=== PATIENT | female | born 1995 | race Caucasian/White ===

== ENCOUNTER → 2017-03-01 | Outpatient (CLI) | payer MEDICAID ==
[~2017-03-01] MED LIST: ANUSOL-HC2.5% TP; CIPRO 500MG TA500 MG PO; DULCOLAX STOOL100 MG PO; FLAGYL500 M1 PO; MINIPRESS2 MG PO; NAPROSYN 500MG500 MG PO; NOMEDS XX; OMEPRAZOLE40 MG PO; PHENERGAN 12.12.5 M1 PO; PHENERGAN 25MG.25 MG PR; PRAZOSIN HCL2 MG PO; PRENATAL PLUS1 TA1 PO; ZOFRAN 8MG TABLE8 MG PO; ZOLOFT25 MG PO
--- NOTE | 2017-03-01 17:08 | RADIOLOGY REPORT PS360 ---
US TRANSVAGINAL PREG HISTORY: OB US FOR DATES ORDERING PHYSICIAN: Shaun Tang MD PATIENT AGE: 21 years COMPARISON: 02/27/2017 FINDINGS: There is a live intrauterine gestation present with a crown-rump length of 1.71 cm correlating to a gestational age of 8 weeks 2 days. A yolk sac is present. heart tones are noted with an FHR 160 bpm. The gestational sac has an unremarkable appearance. The left ovary is 3.2 x 1.7 cm containing small follicles. The right ovary is 4 x 2.8 cm and contains a 1 cm cyst and other smaller follicles. Blood flow is present in the ovaries. No free fluid evident. IMPRESSION: Live intrauterine gestation with average ultrasound age of 8 weeks 2 days
== END ==
LOC: RAD 13:30
DX: O26.841 Uterine size-date discrepancy, first trimester (principal)

== ENCOUNTER 2017-04-01 09:57 | Day surgery (SDC) | payer MEDICAID ==
[~2017-04-01] VITALS: Ht 162.6 cm; Wt 72.6 kg
--- NOTE | 2017-04-01 10:16 | Emergency Room Report ---
History of Present Illness Time Seen by [email or web address] Presenting Problem in Triage Pt arrived:Walked Presenting Problem:VEGINAL BLEEDING AND STOMACH PAIN SINCE TUESDAY 21:00.HAS BEEN GETTING WORSE. DR. 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 N Clinical Suspician of Infection? N Mental Status: 1 - Regular (Normal Baseline) Sepsis Risk:Low Sepsis Risk Have you (or family members/close friends) recently traveled outside the [place]? N If Yes, where/when: Have you had exposure to infectious disease within the past month? N TB? Other? Specify: Scant VB, cramping for two days, passing mucous, is A0 with care including US by Dr. Tang, with EDC 10/10/17 by US. No fever. No vomiting. No urinary sx. Last visit to clinic was about two weeks ago and showed cardiac activity per d/w patient and her partner. ALLERGIES Coded Allergies: No Known Allergies (04/01/17) Home Medications Reported Medications MULTIVIT-MIN W/FE-FA ( Multivitamin Tablet) 1 TAB PO DAILY History Medical History General CAD? No Angina: No LA: No Hypertension? No Hyperlipidemia? No CHF? No DVT? No PE? No COPD? No Asthma? No Anemia? No GERD? No Gastric ulcers? No GI Bleed? No Hernia? No Thyroid Problems? No Hypothyroidism? No CVA? No Seizures? No Diabetes? No Renal Insuffiency? No End Stage Renal Disease? No UTI? No Stones? No BPH? No GB Disease: No Nephritic Syndrome? No Asplenia? No Hepatitis? No Sickle Cell Disease? No Arthritis? No Migraines? No Cataracts? No Glaucoma? No MRSA? No HIV? No TB? No Anxiety? No Depression? No Cancer? No More? 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 Physical Exam Vital Signs Vital Signs Date Time Temp Pulse Resp B/P Pulse O2 O2 Flow FiO2 Ox Delivery Rate 04/01 1347 98.6 88 16 125/72 97 04/01 1346 98.6 88 16 125/72 97 04/01 1306 98.6 88 16 125/72 97 04/01 1303 88 16 125/72 97 04/01 1258 16 04/01 1118 90 16 127/81 97 04/01 1011 113/62 04/01 1006 98.6 67 16 113 97 General Appearance normal appearance, WD/WN, no apparent distress Eye Exam - bilateral eye normal exam, bilateral eye PERRL, bilateral eye EOMI Neck normal inspection, non-tender, supple, full range of motion Respiratory Status Yes: trachea midline, chest symmetrical, non tender chest. No: respiratory distress, tender on palpation, use of accessory muscles, pain on inspiration, pain on expiration, productive cough, non productive cough. Lung Sounds bilateral: normal breath sounds, lungs clear. Cardiovascular normal exam, regular rate/rhythm, no peripheral edema, no gallop, no JVD, no murmur, no rub Gastrointestinal normal bowel sounds, normal exam, non tender, soft, no organomegaly, no guarding, no rebound Strength 5 Upper Ext (L), 5 Upper Ext (R), 5 Lower Ext (L), 5 Lower Ext (R) Neurologic alert, normal exam, no motor/sensory deficits, oriented x 3 Skin intact, normal color, warm/dry Medical Decision Making LABS/Meds/Orders Pt receiving controlled substance in ED? No Results/Orders Laboratory Tests 04/01/17 1105: PT 12.0 H, INR 1.11 H, APTT 27.5, C.trachomatis DNA (LIZBET) Pending, N.gonorrhoeae RNA Pending 04/01/17 1104: Ur Chlamydia DNA (PCR) Cancelled, Urine GC DNA Probe Cancelled, Urine Color DK YELLOW, Urine Appearance CLEAR, Urine pH 5.5, Ur Specific [place] >= 1.030, Urine Protein NEGATIVE, Urine Ketones NEGATIVE, Urine Blood 2+ H, Urine Nitrate NEGATIVE, Urine Bilirubin NEGATIVE, Urine Urobilinogen 0.2, Ur Leukocyte Esterase NEGATIVE, Urine RBC 3-5, Urine WBC OCC, Ur Squamous Epith Cells 5-10, Urine Bacteria 3+, Urine Mucus 2+, Urine Glucose NEGATIVE 04/01/17 1100: Sodium 137, Potassium 3.7, Chloride 101, Carbon Dioxide 26, BUN 8, Creatinine 0.5 L, Estimated Creat Clear 207 H, Estimated GFR (MDRD) 159, Glucose 94, Calcium 9.3, Total Bilirubin 0.7, AST 17, ALT 21, Alkaline Phosphatase 60, Total Protein 8.4 H, Albumin 4.1, Globulin 4.3 H, Albumin/Globulin Ratio 1.0 L, Beta HCG, Quant 9830.9, WBC 7.2, RBC 4.24, Hgb 13.0, Hct 38.1, MCV 90.0, RDW 12.8, Plt Count 289, MPV 7.7, Gran % 65.0, Gran # 4.7, Lymphocytes % 28.2, Monocytes % 5.8, Eosinophils % 0.9, Basophils % 0.1, Lymphocytes # 2.0, Monocytes # 0.4, Eosinophils # 0.1, Basophils # 0.0, PUBS MCHC 34.1, MCH 30.7 Current Medication Orders Sig/Lili Start time Last Medication Dose Route Stop Time Status Admin Cefazolin Sodium 1 GM ONCE ONE 04/01 1300 DC 04/01 Sodium Chloride 50 ML IV 04/01 1329 1459 Sodium Chloride 10 ML PRN PRN 04/01 1300 DCD IV 04/02 1246 Cefazolin Sodium 0 .STK-MED ONE 04/01 1249 DC .ROUTE Sodium Chloride 50 ML .STK-MED ONE 04/01 1249 DC IV Sodium Chloride 1,000 ML .STK-MED ONE 04/01 1249 DC IV Lorazepam 1 MG ONCE ONE 04/01 1245 DC 04/01 IV 04/01 1246 1258 Lorazepam 0 .STK-MED ONE 04/01 1245 DC .ROUTE Sodium Chloride 1,000 ML .Q10H 04/01 1245 DCD 04/01 IV 04/02 0045 1258 Sodium Chloride 10 ML PRN PRN 04/01 1015 DCD IV 04/02 1014 Orders Procedure Date/time Status PARTIAL THROMBOPLASTIN TIME 04/01 1333 Complete PROTHROMBIN TIME 04/01 1333 Complete CULTURE, URINE 04/01 1104 Active IV SALINE LOCK 04/01 1015 Active GEN NSG/PT REQ (NOT FOR MEDS!) 04/01 1015 Active WET PREP 04/01 1015 Active OLIVIA PREP 04/01 1015 Active URINALYSIS/COMPLETE 04/01 1015 Complete CHLAMYDIA/GC 04/01 1015 Active CBC WITH AUTO DIFF 04/01 1015 Complete CHEM 12 PROFILE 04/01 1015 Complete BETA-HCG, QUANT 04/01 1015 Complete XRAY/CT/US XRAY/CT/US Ultrasound pelvis, EGA 9 weeks; no cardiac activity; no movement. Good flow to adnexa. No fluid in cul de sac. US Interpretation by reviewed by me (d/w tech) US results c/w demise: no cardiac activity, no movement per d/w tech Consult MD Physician Consult Consult/PCP d/w Dr. Tang: keep NPO, will eval in ER to preop Time Called 1141 Reason Pt. Condition, Gynecological eval/care, Obstetrical eval/care Departure Departure Time of Disposition 1218 Disposition Still a Patient Clinical Impression Primary Impression: demise due to miscarriage Condition STABLE ED Critical Care Critical Care No at 2053
[2017-04-01 11:06] LABS: LYMPH % 28.2 % (10-50.0)
[2017-04-01 11:10] LABS: URINE BILIRUBIN - DIPSTICK NEGATIVE (NEG); URINE BLOOD 2+ (NEG)
--- NOTE | 2017-04-01 12:22 | RADIOLOGY REPORT PS360 ---
US TRANSVAGINAL PREG HISTORY: First trimester vaginal bleeding with pelvic pain preg with VB ORDERING PHYSICIAN: China Aden MD PATIENT AGE: 21 years COMPARISON: 03/01/2017 FINDINGS: There is an intrauterine gestation once again noted. The crown rump length is 2 cm correlating to gestational age of 8 weeks and 5 days. Previous ultrasound of 03/01/2017 showed a crown-rump length of 1.7 cm correlating to gestational age of 8 weeks 2 days. No heart tones were demonstrated.. Yolk sac is noted. No adnexal mass. No obvious subchorionic hemorrhage. IMPRESSION: Intrauterine gestation with no heart tones consistent with nonviable gestation.
--- NOTE | 2017-04-01 15:29 | Operative Note ---
Procedure/Operative Record Procedure Date of procedure: 04/01/17 Pre-Op Dx: Missed Post-Op Dx: Missed Procedure performed: Dilation and evacuation with Steven suction. Surgeon: Dr. Shaun Tang Footwear Stitcher(s): None Anesthesia: Alireza Elmorealtheaaston EBL (ml): 100 Clinical note: She is a 21 1 para 0 who was in 12 weeks gestational age. She had a small amount of bleeding this morning and an ultrasound confirmed a nonviable fetus with no heart rate activity as well as no flow. As result of this she was offered dilation and evacuation. The risks and benefits of surgery discussed with patient and her family prior surgery. Operative findings: She had an anteverted bulky uterus. Operative note: She was taken to the operating room where local mac anesthesia was found be adequate. She was prepped and draped in normal sterile fashion in lithotomy position. Weighted speculum was placed in vagina and the anterior lip of the cervix was grasped with a tenaculum. Tom dilators used to dilate the cervix to approximately 12 mm. Then using [address] [place] suction curette I evacuated the uterine contents. This was followed by gentle curettage. The patient tolerated the procedure well and was taken to the recovery room in excellent condition. All sponge instrument and needle counts were correct. Estimate a blood loss was approximately 100 mL. Conplications: None Specimens: Retained products of missed . at [id number]
--- NOTE | 2017-04-01 15:43 | Anesthesia Record ---
Anesthesia Record Part I Total IV fluids: 300 EBL (ml): 100 Urine Output: 25 Units of blood given: 0 B/P: 111/63 % SaO2: 97 Pulse: 84 Resps: 16 Temp: 98.3 Patient is: Awake, Stable Stable to PACU at: 1530 at 1541
--- NOTE | 2017-04-01 15:44 | Anesthesia Record ---
Anesthesia Record Part II Discharge time: 1600 Destination: Same day surgery PACU nurse assessment review? Yes Patient is: Awake, Stable Anesthesia complications? No at [id number]
--- NOTE | 2017-04-01 16:27 | RADIOLOGY REPORT PS360 ---
US TRANSVAGINAL PREG HISTORY: Patient desires second look ultrasound for nonviable fetus PREG LESS THAN 12 WEEKS ORDERING PHYSICIAN: Shaun Tang MD PATIENT AGE: 21 years COMPARISON: Same day FINDINGS: Endovaginal exam performed. No heart tones evident. No movement. IMPRESSION: Nonviable gestation
[2017-04-01 17:03] VITALS: BP 125/76
[2017-04-04 14:40] LABS: Neisseria gonorrhoeae, NAA Negative (Negative)
== END 2017-04-01 16:45 | disposition home or self-care (01) ==
LOC: ER 09:57 → SDC 14:05
PROVIDERS: Emergency Medicine; Nurse Practitioner Obstetrics & Gynecology
PROC: 10D17ZZ Extraction of Products of Conception, Retained, Via Natural or Artificial Opening (ICD-10-PCS; principal; 2017-04-01 13:53)
DX: O02.1 Missed abortion (principal)

== ENCOUNTER 2017-05-10 05:13 | Emergency (ER) | payer MEDICAID ==
[~2017-05-10] VITALS: Ht 160 cm; Wt 72.6 kg
[2017-05-10 05:51] LABS: URINE BILIRUBIN - DIPSTICK NEGATIVE (NEG); URINE BLOOD 1+ (NEG)
[2017-05-10 06:48] LABS: LYMPH # 1.5 K/mm3 (0.7-4.5); LYMPH % 16.1 % (10-50.0)
--- NOTE | 2017-05-10 07:00 | Emergency Room Report ---
History of Present Illness Time Seen by MD [email or web address] Presenting Problem in Triage Pt arrived:Walked Presenting Problem:ABDOMINAL PAIN, N/V, AND DIARRHEA, STARTED YESTERDAY. 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 N Clinical Suspician of Infection? N Mental Status: 1 - Regular (Normal Baseline) Sepsis Risk:Low Sepsis Risk Have you (or family members/close friends) recently traveled outside the [place]? N If Yes, where/when: Have you had exposure to infectious disease within the past month? N TB? Other? Specify: Source patient, RN notes reviewed, family, old records Exam Limitations no limitations Comment pt with nausea and vomiting with diarrhea and crampy abd pain over the last few days Cardiac Chest Pain Chest pain indicative of cardiac No Timing/Duration this evening Severity moderate ALLERGIES Coded Allergies: No Known Allergies (04/07/17) Home Medications Active Scripts AMOXICILLIN/POTASSIUM CLAV (Augmentin 500-125 Tablet) 1 TAB PO BID #14 TAB Ref 1 Prov: 04/06/17 Reported Medications MULTIVIT-MIN W/FE-FA ( Multivitamin Tablet) 1 TAB PO DAILY No Home Medications (NO HOME MEDICATIONS) 1 EACH XX ONCE History Medical History General CAD? No Angina: No OR: No Hypertension? No Hyperlipidemia? No CHF? No DVT? No PE? No COPD? No Asthma? No Anemia? No GERD? No Gastric ulcers? No GI Bleed? No Hernia? No Thyroid Problems? No Hypothyroidism? No CVA? No Seizures? No Diabetes? No Renal Insuffiency? No End Stage Renal Disease? No UTI? No Stones? No BPH? No GB Disease: No Nephritic Syndrome? No Asplenia? No Hepatitis? No Sickle Cell Disease? No Arthritis? No Migraines? No Cataracts? No Glaucoma? No MRSA? No HIV? No TB? No Anxiety? No Depression? No Cancer? No More? 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 Respiratory denies cough, denies shortness of breath, denies wheezing Cardiovascular denies chest pain, denies palpitations, denies syncope Gastrointestinal see HPI, abdominal pain, diarrhea, nausea, vomiting Genitourinary denies: dysuria, frequency, hesitancy, hematuria. Musculoskeletal denies back pain, denies joint pain, denies joint swelling, denies neck pain Skin denies rash Psychiatric/Neurological denies headache, denies seizure Physical Exam Vital Signs Vital Signs Date Time Temp Pulse Resp B/P Pulse O2 O2 Flow FiO2 Ox Delivery Rate 05/10 0701 98.4 63 18 117/61 98 05/10 0556 59 18 140/82 98 05/10 0549 20 05/10 0517 98.1 84 20 132/79 98 - WBC >12,000 or <4,000 or 10% bands? 2 or more SIRS Criteria Met? B/P:140/82 MAP:96 Creatinine >2.0? UA output<0.5ml/kg/hr for 2 hrs? Platelet count >100,000? Lactate >2.0mmol/1? INR >1.2 or PTT > than 60 sec? Evidence of Organ Dysfunction? Provider documented clinical suspician of infection? N Sepsis Criteria Count: 1 Sepsis Risk: Low Sepsis Risk General Appearance no apparent distress Eye Exam - bilateral eye PERRL, bilateral eye EOMI Ear, Nose, Throat normal ENT inspection Neck supple Respiratory Status No: respiratory distress. Lung Sounds bilateral: lungs clear. 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 No Results/Orders Laboratory Tests 05/10/17 0545: Sodium 141, Potassium 3.7, Chloride 105, Carbon Dioxide 27, BUN 14, Creatinine 0.7, Estimated Creat Clear 148, Estimated GFR (MDRD) 108, Glucose 118 H, Calcium 9.2, Total Bilirubin 0.4, AST 5 L, ALT 17, Alkaline Phosphatase 71, Total Protein 7.9, Albumin 3.9, Globulin 4.0 H, Albumin/Globulin Ratio 1.0 L, WBC 9.5, RBC 3.94 L, Hgb 12.0 L, Hct 36.2 L, MCV 91.9, RDW 13.8, Plt Count 287, Gran % 78.3, Gran # 7.4, Lymphocytes % 16.1, Monocytes % 5.6, Lymphocytes # 1.5, Monocytes # 0.5, PUBS MCHC 33.1, MCH 30.5 05/10/17 0520: Urine Color YELLOW, Urine Appearance CLEAR, Urine pH 6.0, Ur Specific [place] 1.025, Urine Protein NEGATIVE, Urine Ketones NEGATIVE, Urine Blood 1+ H, Urine Nitrate NEGATIVE, Urine Bilirubin NEGATIVE, Urine Urobilinogen 0.2, Ur Leukocyte Esterase NEGATIVE, Urine RBC 3-5, Urine WBC 3-5, Ur Squamous Epith Cells 5-10, Urine Bacteria 2+, Urine Mucus 1+, Urine Glucose NEGATIVE Current Medication Orders Sig/Lili Start time Last Medication Dose Route Stop Time Status Admin Sodium Chloride 1,000 ML .STK-MED ONE 05/10 659 DC IV Ketorolac 30 MG ONCE ONE 05/10 545 DC 05/10 Tromethamine IV 05/10 546 0549 Ondansetron HCl 4 MG 05/10 545 UNi IV Sodium Chloride 10 ML PRN PRN 05/10 545 AC IV 05/11 0532 Sodium Chloride 1,000 ML .Q1H1M 05/10 545 DC 05/10 IV 05/10 645 0551 Sodium Chloride 10 ML PRN PRN 05/10 545 AC IV 05/11 0533 Sodium Chloride 1,000 ML .STK-MED ONE 05/10 541 DC IV Ketorolac 0 .STK-MED ONE 05/10 539 DC Tromethamine .ROUTE Orders Procedure Date/time Status DIET-NOTHING BY MOUTH 05/[address] ABD & PELVIS W/O CONTRAST 05/[address] ABD W/RLQ PAIN REQ 05/10 532 Complete IV SALINE LOCK 05/10 532 Active URINALYSIS/COMPLETE 05/10 532 Complete URINE 05/10 532 Complete CBC WITH AUTO DIFF 05/10 532 Complete CHEM 12 PROFILE 05/10 532 Complete CULTURE, URINE 05/10 520 Active XRAY/CT/US XRAY/CT/US CT abdomen, pelvis CT interpretation by discussed w/radiologist Time results known: 0656 CT Results normal/NAD Departure Departure Time of Disposition 702 Disposition DC Home or Self Care(routine) Clinical Impression Primary Impression: Gastroenteritis Condition STABLE Referrals Elder Wetzel MD (Family) Patient Instructions DI for Vomiting -- Adult Additional Instructions fluids and see pcp for follow up Discharge Counseling Counseled pt/family regarding diagnosis, test results, medications/RX, follow up needs ED Critical Care Critical Care No at 0704
[2017-05-10 07:28] VITALS: BP 117/58
--- NOTE | 2017-05-10 08:20 | RADIOLOGY REPORT PS360 ---
CT ABD PELVIS W/O CONTRAST COMPARISON: CT scan abdomen pelvis with IV contrast only 04/04/2017 HISTORY: Generalized abdominal pain TECHNIQUE: Multiaxial scans obtained from hemidiaphragms the pelvic floor and were performed without IV or oral contrast. Sagittal and coronal reformats were evaluated as well. FINDINGS: The lower lung diane are clear. The liver spleen stomach and pancreas appear grossly normal. Gallbladder is partially contracted but shows no definite stones. There are tiny opacities within the stomach possibly representing ingested antacids. There are similar tiny scattered foci of high attenuation throughout the colon again probably due to ingested antacids. The adrenal glands are normal. The kidneys are normal size and there are no calculi and is no obstructive uropathy. Small bowel appears normal. I do not definitely identify the appendix but there are no pericecal inflammatory changes. There is a moderate amount stool in the ascending and transverse colon. The uterus is normal size and in the midline. The urinary bladder is grossly normal. There is no significant free fluid in the pelvis. IMPRESSION: No definite acute abdominal or pelvic pathology identified, I agree the [facility] report.
--- OUTSIDE RECORDS SUMMARY | 2017-05-19 06:17 | External Medical Summary Rpt | CCD ---
Author Author , MATT Organization MATT Address Unknown Phone [email or web address] Care Team Providers Care Board Attendant Name Role Phone A Eloise TODD MD PSC, A Unavailable Unavailable Eloise TODD MD PSC Johnny Baker MD, Unavailable Unavailable Johnny Baker MD 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, Unavailable Unavailable 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 Unavailable Unavailable [facility], [facility] RAN JAM, RAN JAM Unavailable Unavailable RAN JAM, RAN JAM Unavailable Unavailable LYLY, LYLY Unavailable Unavailable LARISSA YELENA, LARISSA YELENA Unavailable Unavailable LU TEN, LU TEN Unavailable Unavailable CHEESEMAN LUCY, Unavailable Unavailable CHEESEMAN LUCY HTORPE, THORPE Unavailable Unavailable [facility], Unavailable Unavailable [facility] CANNON KRI, CANNON KRI Unavailable Unavailable DEBBY SUPRIYA, Unavailable Unavailable DEBBY SUPRIYA [facility], [facility] Unavailable Unavailable [facility] Unavailable Unavailable [place], [facility] KETTY GINNY, Unavailable Unavailable KETTY GINNY KETTY GINNY, Unavailable Unavailable KETTY GINNY FIELD AM[facility], FIELD AMB Unavailable Unavailable [facility], [facility] AM[facility] Unavailable Unavailable GABRIELA ROCIO, GABRIELA Unavailable Unavailable ROCIO SHAMEKA ARTHUR, SHAMEKA Unavailable Unavailable ARTHUR [facility] Un[facility] Un[facility] Un[facility], [facility] CHAUHAN CRYSTAL, CHAUHAN CRYSTAL Unavailable Unavailable CHAUHAN CRYSTAL, CHAUHAN CRYSTAL Unavailable Unavailable [facility], Unavailable Unavailable [facility], Unavailable Unavailable [facility] Unavailable Unavailable DEPART[facility], [facility] Unavailable Un[facility], [facility] KILPELA JEA, KILPELA Unavailable Unavailable JEA KILPELA JEA, KILPELA Unavailable Unavailable JEA GELA JOLENE, GELA JOLENE Unavailable Unavailable [facility] Unavailable [facility]available [facility], [facility] JOSE G JR DWI, JOSE G Unavailable Unavailable JR DWI [facility] Unavailable Unavailable [facility]ORATO, [facility] Un[facility] JOSE SCOT, JOSE SCOT Unavailable Unavailable JOSE SCOT, JOSE SCOT Unavailable Unavailable CALDERON MART, CALDERON MART Unavailable Unavailable HERVE RADHA, HERVE Unavailable Unavailable RADHA [facility] Unavailable Unavailable PSC, [facility] PSC OVERBEE TER, OVERBEE Unavailable Unavailable TER [facility], Un[facility]available [facility], [facility] Unavailable Unavailable HEALTH, [facility] RIDDLE DONALD, RIDDLE Unavailable Unavailable DONALD KELBY MERVIN, KELBY Unavailable Unavailable MERVIN KELBY, GUNJAN, Unavailable Unavailable KELBY, GUNJAN ROYSE SCOT, ROYSE SCOT Unavailable Unavailable SADEK, SADEK Unavailable Unavailable PAPPAS JOSEPH, Unavailable Unavailable PAPPAS JOSEPH LOPEZ VENTURA, LOPEZ Unavailable Unavailable VENTURA LOPEZ VENTURA, LOPEZ Unavailable Unavailable [facility] SMALL, CARMELITA T, SMALL, Unavailable Unavailable CARMELITA T SOKAN BAB, SOKAN BAB Unavailable Unavailable SOTINGEANU, Unavailable [facility], Unavailable Unavailable [facility] Unavailable Unavailable [facility], [facility] # [facility]available Unavailable [id number], [facility] # [id number] [facility] Unavailable Unavailable DEPT JUAN, [facility] DENEEN KEATON, WELLS KEATON Unavailable Unavailable WELLS KEATON, WELL[facility] KEATON Unavailable Unavailable TOBIAS CHR, TOBIAS Unavailable Unavailable CHR TODD A, TODD A Unavailable Unavailable Purpose Continuity of Care Document - 10-30-2007 through 2016 Problems Code Diagnosis DOS Provider Status O021 MISSED 04-01-2017 [facility] [id number] UTERINE 03-01-2017 [facility] DISCREPANCY INC FIRST TRIMESTER Z36 ENCOUNTER 03-01-2017 [facility] SCREENING OF MOTHER Z3A08 8 WEEKS 03-01-2017 [facility] OF IM[facility]ING ASS Z3480 ENC 02-28-2017 [facility] SUPERVISION PHYSICIANS OTH NORMAL GROUP PREG UNS TRIMESTER K5900 CONSTIPATIO 02-27-2017 [facility], UNSPECIFIED PLLC O200 THREATENED 02-27-2017 [facility] [id number] OTHER SPEC 02-27-2017 [facility] COND 1ST TRIMESTER R1011 RIGHT UPPER 02-27-2017 [facility] QU[facility]RANT [facility], PAIN PLLC R109 UNSPECIFIED 02-27-2017 [facility]AL [facility] PAIN IMAGING ASS Z3201 ENCOUNTER 02-21-2017 [facility] FOR PHYSICIANS GROUP TEST RESULT POSITIVE K645 PERIANAL 02-16-2017 [facility]ENOUS [facility] THROMBOSIS INC Z331 02-16-2017 [facility] INCIDENTAL INC Z3189 ENCOUNTER 02-02-2017 PUBLIC FOR OTHER HEALTH PROCREATIVE DHS/[facility] MANAGEMENT HEALTH J029 ACUTE 12-12-2016 [facility] PHARYNGITIS PHYSICIAN GROUP UNSPECIFIED Z760 ENCOUNTER 12-01-2016 [facility] ISSUE [facility] OF REPEAT INC PRESCRIPTIO N J020 STREPTOCOCC 11-16-2016 [facility] AL PHYSICIAN PHARYNGITIS GROUP K5000 CROHNS 09-22-2016 [facility] DISEASE [facility], SMALL PLLC INTESTINE W/O COMP K10145 ENCOUNTER 09-20-2016 [facility] HOSPITAL NURSING ASSISTANT EXAM PHYSICIANS GENERAL RTN GROUP W/O ABNORMAL FIND Z3200 ENCOUNTER 09-01-2016 [facility] FOR [facility] INC TEST RESULT UNKNOWN N910 PRIMARY 08-30-2016 [facility] R1013 EPIGASTRIC 08-30-2016 [facility]IN [facility] R12 HEARTBURN 08-30-2016 [facility] U56863 ENCOUNTER 08-17-2016 PUBLIC INITIAL HEALTH PRESCRIPTIO DHS/CO N HEALTH CONTRACEPT PILLS 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 HEALTH SEXUAL DHS/CO BEHAVIOR&OR HEALTH IENTATION H6693 OTITIS 05-31-2016 [facility] UNSPECIFIED CLINIC PSC BILATERAL F62637 CELLULITIS 03-27-2016 [facility] ABDOMINAL CLINIC PSC WALL Z3049 ENCOUNTER 02-17-2016 [facility] PSC E OTHER CONTRACEPTI VES Z309 ENCOUNTER 02-16-2016 [place] [facility] CONTRACEPTI LABORATO VE MANAGEMENT UNS H5213 MYOPIA 12-15-2015 [facility] O24905 REGULAR 12-15-2015 [facility] R05 COUGH 10-29-2015 [facility] R110 NAUSEA 10-28-2015 [facility] J069 ACUTE UPPER 07-29-2015 [facility] RESPIRATORY MEDICAL INFECTION GROUP UNSPECIFIED N77910 HORDEOLUM 05-08-2015 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 LEFT LOWER MEDICAL EYELID GROUP V745 SCREENING 03-06-2015 [place] [facility] FOR LABORATO VENEREAL DISEASE 0340 STREPTOCOCC 02-04-2015 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 THROAT MEDICAL GROUP V2549 SURVEILLANC 12-06-2014 DHS/CO E OTH PREV HEALTH PRSC CONTRACEPT METHOD V2689 OTHER 12-06-2014 [facility] SPECIFIED HEALTH PROCREATIVE MANAGEMENT 462 ACUTE 04-01-2014 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 4779 ALLERGIC 04-01-2014 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INIT[facility] CAUSE CARE UNSPECIFIED 85263 ABDOMINAL 02-18-2014 [facility] PAIN, PHYSICIANS GENERALIZED GROUP 2768 HYPOPOTASSE 02-03-2014 DENE[facility] PUGH JEFF 5589 OTH&UNSPEC 02-03-2014 [facility] NONINFECTIO US GASTROENTER ITIS&COLITI S 26660 PRIMARY 12-28-2013 KILPELA JEA FOCAL HYPERHIDROS IS 7098 OTHER 12-20-2013 [facility] SPECIFIED PHYSICIANS DISORDER OF GROUP SKIN V202 ROUTINE 12-10-2013 FIELD AMB OR CHILD HEALTH CHECK 7231 CERVICALGIA 12-06-2013 [facility] PHYSICIANS GROUP 3671 MYOPIA 2013 CHAUHAN CRYSTAL 79794 ABDOMINAL 11-08-2013 [facility] PAIN, PHYSICIANS EPIGASTRIC GROUP 75107 UNS ADVRS 10-31-2013 [facility] EFF UNS RX PHYSICIANS MEDICINAL&B GROUP IOLOGICAL SBSTNC 8488 OTHER 10-16-2013 JOSE SCOT SPECIFIED SITES OF SPRAINS AND STRAINS 3829 UNSPECIFIED 10-07-2013 [facility] OTITIS PHYSICIANS MEDIA GROUP 4659 ACUTE URIS 10-07-2013 [facility] OF PHYSICIANS UNSPECIFIED GROUP SITE 4553 EXTERNAL 08-01-2013 [facility] WITHOUT MENTION COMP 39535 ANAL OR 08-01-2013 [facility] [facility] RECTAL PAIN 63017 CHEST PAIN 05-01-2013 [facility] UNSPECIFIED PHYSICIANS GROUP 723.1 723.1 11-21-2012 [facility] 7856 ENLARGEMENT 11-21-2012 DEBBY OF LYMPH SUPRIYA NODES 7821 RASH AND 10-06-2012 KILPELA JEA OTHER NONSPECIFIC SKIN ERUPTION 8470 NECK SPRAIN 10-06-2012 KILPELA JEA AND STRAIN 7804 DIZZINESS 10-05-2012 [facility] [employer] 7840 HEADACHE 07-24-2012 [facility] 0790 ADENOVIRUS 06-14-2012 LOPEZ VENTURA INFECTION IN CCE & UNS SITE 6253 DYSMENORRHE 04-03-2012 [facility] A [facility]IGH S[facility] HEAL 9597 INJURY 12-13-2011 [facility] OTHER&UNSPE MIDDLE CIFIED [employer] LEG ANKLE&FOOT 9490 BURN OF 11-11-2011 [facility] UNSPECIFIED [employer]LE SITE SCHO[employer] UNSPECIFIED DEGREE 05917 ABDOMINAL 11-10-2011 KETTY PAIN, GINNY UNSPECIFIED SITE 5368 DYSPEPSIA&O 11-02-2011 [facility] THER SPEC [facility] DISORDERS SCHOOL FUNCTION STOMACH 8489 UNSPECIFIED 09-14-2011 KETTY SITE OF GINNY SPRAIN AND STRAIN 45551 NAUSEA 08-24-2011 [facility] ALONE [employer] 3804 IMPACTED 08-19-2011 [facility] CERUMEN [facility] 76641 UNSPECIFIED 08-19-2011 [facility] OTALGIA [facility] 69373 NAUSEA WITH 07-21-2011 [facility] VOMITING [facility] S[facility] V820 SCREENING 06-22-2011 [facility] FOR SKIN [facility] CONDITION SCHOOL 1320 PEDICULUS 06-21-2011 [facility] CAPITIS [employer] [employer] 1330 SCABIES 04-01-2011 A Eloise TODD MD PSC 7862 COUGH 11-27-2010 [facility] 68085 FEVER 11-20-2010 [facility] UNSPECIFIED [facility] 9198 OTH&UNS SUP 11-17-2010 [facility] INJR OT MIDDLE MX&UNS SITE SCHOOL W/O MENTION INF 50595 VOMITING 10-21-2010 A Eloise TODD ALONE PSC 0088 INTESTINAL 05-29-2010 A Eloise TODD INFECTION PSC DUE TO OTHER ORGANISM NEC 7820 DISTURBANCE 03-13-2010 A Eloise TODD OF SKIN PSC SENSATION V069 NEED PROPH 03-17-2009 [facility] VACCINATION HEALTH W/UNSPEC CENTRAL COMB BANK ACCT VACCINE Allergies, Adverse Reactions, Alerts Type Allergy to substance Adverse Reaction to Substance Substance Reaction Severity NO KNOWN ALLERGIES Unknown Unknown Medications Na ND Rx Da Fi Fi Am Da Di Ph RX Ph St me C No te ll ll ou ys ag ar # ys at rm s nt no ma ic us Or Da si cy ia de te s n re d ES 68 09 10 30 30 00 WA Ac CI 64 -1 -0 .0 00 L- ti TA 50 4- 6- 00 07 MA ve LO 51 20 20 50 RT NV 95 17 17 95 AM 4 23 PH AR 10 MA CY MG #5 TA 91 BL ET HY 00 09 10 90 [address] 18 -1 -0 .0 00 L- ti OX 50 5- 6- 00 07 MA ve YZ 67 20 20 50 RT IN 40 17 17 97 E 1 81 PH PA AR M MA 25 CY MG #5 91 CA P FL 68 09 10 30 30 00 AK Ac UO 64 -1 -0 .0 00 L- ti XE 50 5- 6- 00 07 MA ve TI 13 20 20 50 RT NE 15 17 17 97 4 83 PH HC AR L MA 10 CY MG #5 91 CA PS UL E HY 00 08 09 [address] 40 -3 -2 .0 00 L- ti OC 60 1- 2- 00 02 MA ve OD 12 20 20 24 RT ON 40 17 17 17 -A 1 34 PH CE AR TA MA [place] CY NO PH #5 91 7. 5- 32 5 AM 66 08 09 14 7 00 AK Ac OX 68 -3 -2 .0 00 L- ti -C 51 0- 2- 00 07 MA ve LA 00 20 20 50 RT V 20 17 17 68 50 0 50 PH 0- AR 12 MA 5 CY MG #5 TA 91 BL ET HY 00 08 09 [address] 40 -2 -1 .0 00 L- ti OC 60 5- 5- 00 02 MA ve OD 12 20 20 24 RT ON 40 17 17 16 -A 1 72 PH CE AR TA MA [place] CY NO PH #5 91 7. 5- 32 5 NV 10 07 08 28 8 00 AK Ac OC 63 -1 -0 .3 00 L- ti TO 10 2- 4- 50 07 MA ve SO 40 20 20 49 RT L- 70 17 17 85 HC 1 12 PH AR 2. MA 5% CY CR #5 EA 91 M AZ 59 05 06 6. 5 00 AK Ac IT 76 -0 -0 00 00 L- ti HR 23 7- 2- 0 07 MA ve OM 06 20 20 48 RT YC 00 17 17 65 IN 1 45 PH AR 25 MA 0 CY MG #5 TA 91 BL ET NV 00 04 05 30 30 00 AK Ac AZ 09 -2 -1 .0 00 L- ti OS 34 6- 9- 00 07 MA ve IN 06 20 20 48 RT 2 80 17 17 46 1 01 PH MG AR MA CA CY PS UL #5 E 91 AM 00 04 05 20 10 00 AK Ac OX 09 -1 -0 .0 00 L- ti IC 33 1- 5- 00 07 MA ve IL 10 20 20 48 RT LI 90 17 17 17 N 5 75 PH 50 AR 0 MA MG CY CA #5 PS 91 UL E SP 00 02 28 28 00 AK Ac RI 55 -1 -1 .0 00 L- ti NT 59 3- 0- 00 07 MA ve EC 01 20 20 46 RT 65 17 17 38 28 8 99 PH AR DA MA Y CY TA BL #5 ET 91 CI 00 02 03 14 7 00 AK Ac NV 17 -1 -1 .0 00 L- ti OF 25 6- 0- 00 07 MA ve LO 31 20 20 47 RT XA 26 17 17 10 CI 0 50 PH N AR HC MA L CY 50 0 #5 MG 91 TA B DO 00 02 03 30 30 00 AK Ac C- 60 -1 -1 .0 00 L- ti Q- 30 3- 0- 00 08 MA ve LA 15 20 20 83 RT CE 03 17 17 80 2 75 PH 10 AR 0 MA MG CY SO #5 FT 91 GE L ME 50 02 03 20 7 00 AK Ac TR 11 -1 -1 .0 00 L- ti ON 10 6- 0- 00 07 MA ve ID 33 20 20 47 RT AZ 40 17 17 10 OL 2 52 PH E AR 50 MA 0 CY MG #5 TA 91 BL ET OM 60 01 02 30 30 00 AK Ac EP 50 -2 -1 .0 00 L- ti RA 50 4- 7- 00 07 MA ve ZO 14 20 20 46 RT LE 60 17 [address] AR MA 40 CY MG #5 91 CA PS UL E ON 57 01 02 20 7 00 AK Ac DA 23 -2 -1 .0 00 L- ti NS 70 4- 7- 00 07 MA ve ET 07 20 20 46 RT RO 63 17 17 67 N 0 56 PH HC AR L MA 8 CY MG #5 TA 91 BL ET SP 00 02 28 28 00 AK Ac RI 55 -1 -0 .0 00 L- ti NT 59 0- 3- 00 07 MA ve EC 01 20 20 46 RT 65 17 17 38 28 8 99 PH AR DA MA Y CY TA BL #5 ET 91 PE 00 08 08 0 60 1 EA 23 MO Ac RM 47 -2 -[address] 82 SE ti ET 20 5- 5- 00 SI 35 S ve HR [address] IN 26 11 11 EP 0 PH HE 5% AR N MA A CR CY EA M OF CY NT HI AN A IB 68 04 04 0 20 6 WA 71 RI Ac UP 64 -1 -1 .0 L- 15 SH ti RO 50 5- 6- 00 MA 50 ER ve FE 22 20 20 RT 6 N 15 11 11 RI 60 9 PH CH 0 AR AR MG MA D CY TA # BL ET 10 05 91 BR 60 04 04 0 12 2 71 RI Ac OM 43 -1 -1 0. L- 15 SH ti FE 20 5- 6- 00 MA 50 ER ve D 83 20 20 0 RT 5 DM 70 11 11 RI 4 PH CH CO AR AR UG MA D H CY SY # RU P 10 05 91 66 11 11 0 12 6 70 RI Ac 99 -0 -2 0. L- 96 SH ti 20 9- 9- 00 MA 20 ER ve 22 20 20 0 RT 0 00 10 10 RI 4 PH CH AR AR MA D CY # 10 05 91 NV 68 10 10 0 12 4 WA 70 EN Ac OM 38 -2 -2 .0 L- 91 GL ti ET 20 2- 3- 00 MA 45 AN ve BLAKE 04 20 20 RT 4 D ZI 10 10 10 SH NE 1 PH AR AR I 25 MA L CY MG # TA 10 BL 05 ET 91 60 08 08 0 12 5 EA 18 MO Ac 25 -3 -[address] 94 SE ti 80 1- 1- 00 SI 33 S ve 23 [address] 91 10 10 EP 6 PH HE AR N MA A CY OF CY NT HI AN A NA 53 08 08 0 28 14 WA 70 EN Ac NV 74 -0 -0 .0 L- 81 GL ti OX 60 6- 7- 00 MA 30 AN ve EN 18 20 20 RT 2 D 80 10 10 SH 25 1 PH AR 0 AR I MG MA L CY TA # BL ET 10 05 91 BE 68 03 03 0 30 10 WA 70 MO Ac NZ 38 -0 -0 .0 L- 61 SE ti ON 20 9- 9- 00 MA 70 S ve AT [address] AT 80 10 10 EP E 1 PH HE 20 AR N 0 MA A MG CY # CA PS 10 UL 05 E 91 68 03 03 0 60 30 WA 70 MO Ac 04 -0 -0 .0 L- 61 SE ti 70 5- 5- 00 MA 16 S ve 12 [address] 20 10 10 EP 1 PH HE AR N MA A CY # 10 05 91 AM 00 03 03 0 28 7 WA 70 MO Ac OX 78 -0 -0 .0 L- 61 SE ti IC 12 4- 5- 00 MA 16 S ve IL [address] LI 30 10 10 EP N 5 PH HE 50 AR N 0 MA A MG CY # CA PS 10 UL 05 E 91 PE 45 03 04 01 60 7 WA 70 No Ac RM 80 -1 -0 .0 L- 12 t ti ET 20 6- 9- 00 MA 41 Av ve HR 26 20 20 RT 0 ai IN 93 09 09 la 7 PH bl 5% AR e MA CR CY EA M #5 91 PE 45 03 03 00 60 7 WA 70 No Ac RM 80 -1 -2 .0 L- 12 t ti ET 20 6- 6- 00 MA 41 Av ve HR 26 20 20 RT 0 ai IN 93 09 09 la 7 PH bl 5% AR e MA CR CY EA M #5 91 HY 00 03 03 00 30 15 WA [address] 47 -1 -2 .0 L- 12 t ti OC 20 6- 6- 00 MA 41 Av ve OR 33 20 20 RT 1 ai TI 73 09 09 la SO 0 PH bl NE AR e MA 2. CY 5% #5 CR 91 EA M Vital Signs 11-21-2012 17:50 Name Value Interpretat Reference Comment ion Range Body 98.4 [degF] Temperature BP 60 mm[Hg] Diastolic BP Systolic 129 mm[Hg] Heart 94 /min Rate/Pulse O2% 96 % Respiratory 16 /min Rate 11-21-2012 17:16 Name Value Interpretat Reference Comment ion Range Body 98.6 [degF] Temperature BP 75 mm[Hg] Diastolic BP Systolic 132 mm[Hg] Heart 99 /min Rate/Pulse O2% 100 % Respiratory 16 /min Rate Results Labs Lab Lab Date Result Refere Interp Status Commen Order Detail nces retati t Range on B-HCG Ur Ql (11-21-2012 16:36) B-HCG NEGATIV NEG complet Ur Ql 013 E ed 16:36 Procedures Procedure DOS Code Location Performer Comment [place] MISSED [id number] [facility] C[facility] 7 [facility] SECOND INC INC TRIMESTER SURGICAL GONADOTRO 27200 [facility]K CAVAZOS PIN 7 [facility] CHORIONIC INC INC QUANTITAT MARZENA PROTHROMB 91205 [facility]KF[facility] CAVAZ[facility] IN TIME 7 [facility] INC INC US PREG 02832 D[facility] UTERUS 7 MEM H[facility] REAL TIME INC INC W/IMAGE DCMTN TRANSVAG COMPREHEN 72148 [facility] C[facility] SIVE 7 [facility] METABOLIC INC INC PANEL CULTURE 98001 [facility]K CAVAZOS BACTERIAL 7 [facility] INC INC QUANTTATI VE COLONY COUNT URINE THROMBOPL 15418 [facility] C[facility]AZOS ASTIN 7 [facility]OS[facility] TIME INC INC PARTIAL PLASMA/WH OLE BLOOD BLOOD 98386 [facility] CAVAZOS COUNT 7 [facility] COMPLETE INC INC AUTO&AUTO DIFRNTL WBC URNLS DIP 65579 DIRK DIRK 7 [facility] STICK/TAB INC INC LET REAGENT AUTO MICROSCOP Y US PREG 46263 [facility] C[facility]AZOS UTERUS 7 [facility] REAL TIME INC INC W/IMAGE DCMTN TRANSVAG US PREG 71664 [facility] C[facility]AZOS UTERUS 7 [facility] REAL TIME INC INC W/IMAGE DCMTN TRANSVAG COMPREHEN 66043 DIRKFANY CAVAZOS SIVE 7 [facility] METABOLIC INC INC PANEL URINE 03193 D[facility]K CAVAZOS 7 [facility] TEST INC [place] [address] D[facility] CAVAZOS INFUSION 7 [facility] THERAPY/P INC INC ROPHYLAXI S /DX 1ST TO 1 [place] [address] DIRK CAVAZOS ABDOMINAL 7 [facility] REAL INC INC TIME W/IMAGE LIMITED URNLS DIP 77358 DIRK DIRK 7 [facility] STICK/TAB INC INC LET REAGENT AUTO MICROSCOP Y BLOOD 59004 D[facility]K CAVAZOS COUNT 7 [facility] HOS[facility] COMPLETE INC INC AUTO&[place] [address] D[facility]K C[facility]AZOS INFUSION 7 [facility] THERAPY INC INC PROPHYLAX IS/DX EA HOUR URINE 39077 [facility] THORPE 7 PHYSICIAN TEST S GROUP VISUAL COLOR CMPRSN METHS DRUG TEST 40580 [facility] THORPE PRSMV 7 PHYSICIAN QUAL DIR S GROUP OPTICAL OBS PER DAY URINE 53427 [facility] TEST DHS/CO HLTH DEPT VISUAL HEALTH JUAN COLOR CMPRSN METHS CULTURE 91406 D[facility]K CAVAZOS BACTERIAL 7 [facility] HOS[facility] INC INC QUANTTATI VE COLONY COUNT URINE COMPREHEN 98914 [facility] CAVAZOS SIVE 7 [facility] [place] [address] [facility]K CAVAZOS LIPASE 7 [facility] [place] [address] D[facility]K C[facility] AMYLASE 7 [facility] [place] [address] D[facility]K CAVAZOS LACTATE 7 [facility]OS[facility] INC INC CULTURE 09487 D[facility]K CAVAZOS BACTERIAL 7 [facility] BLOOD INC INC AEROBIC W/ID ISOLATES THER 60680 D[facility] C[facility]AZOS PROPH/DX 7 [facility]OS[facility] NJX IV INC INC PUSH SINGLE/1S T SBST/DRUG URINE 10534 [facility] C[facility]AZ[facility] 7 [facility] TEST INC INC VISUAL COLOR CMPRSN METHS BLOOD 89905 [facility] C[facility]AZ[facility] COUNT 7 [facility] COMPLETE INC INC AUTO&AUTO DIFRNTL WBC THERAPEUT 83074 [facility]AZ[facility] IC 7 [facility] INJECTION INC INC IV PUSH EACH NEW DRUG URNLS DIP 61741 D[facility] CAVAZOS 7 [facility] STICK/TAB INC INC LET REAGENT AUTO MICROSCOP Y URNLS DIP 62347 [facility] THOPRE 7 PHYSICIAN STICK/TAB S GROUP LET RGNT NON-AUTO W/O MICRSCP COLLECTIO 86994 [facility]K CAVAZOS N VENOUS 7 [facility] BLOOD INC INC VENIPUNCT URE GONADOTRO 20406 [facility] PIN [facility] CHORIONIC INC INC QUANTITAT MARZENA GONADOTRO 29252 [facility] PIN [facility] CHORIONIC INC INC QUALITATI VE URINE 88363 [facility] TEST INC INC VISUAL COLOR CMPRSN METHS URNLS DIP 51840 [facility] STICK/TAB INC INC LET REAGENT AUTO MICROSCOP Y CONTRACEP [id number] [facility] SU[facility] HL DEPT [facility] JUAN MALE EACH URINE 95135 [facility] TEST DHS/CO [facility] DEPT VISUAL HEALTH JUAN COLOR CMPRSN METHS SVC PRV 40428 [facility] MART OFFICE [facility] SCHEDD PSC EVN WKEND/HOL IDAY HRS IAADIADOO 71282 [facility] MART [facility] CCUS PSC GROUP A SVC PRV 83694 [facility] MCGINNIS SCOT OFFICE 6 [facility] SCHEDD PSC EVN WKEND/HOL IDAY HRS INJECTION J1050 [facility] [place] KRI [facility] OGESTERON PSC E ACETATE 1 MG THERAPEUT 31159 [facility] [place] KRI IC 6 [facility] TIC/DX PSC INJECTION SUBQ/IM GONADOTRO 38612 [facility] PIN 6 CLINIC CLINIC CHORIONIC LABORATO LABORATO QUANTITAT MARZENA EXC 51456 [facility] [place] THROMBOSE 6 [facility] HEMORRHOI PSC D XTRNL FRAMES V2020 [facility] PURCHASES [facility] 1 VISN V2103 [facility] PLANO 6 [facility] TO+/-4.00 INSTITUTE D SPHER 0.12-2.00 D CYL EA OPHTH 61862 [facility] MEDICAL 6 [facility] XM&EVAL INSTITUTE COMPRE NEW PT 1/> [facility] 34620 [facility] S XCPT INSTITUTE APHAKIA MONOFOCAL RADIOLOGI 55787 [facility] EXAM [address] [place] [address] CHEST 2 VIEWS FRONTAL&L ATERAL GONADOTRO [id number] CHORIONIC QUALITATI VE IADNA 07545 [facility] CHLAMYDIA 5 CL[facility]IC CLINIC LABORATO LABORATO TRACHOMAT IS AMPLIFIED PROBE TQ IADNA 54058 [facility] NEISSERIA 5 CLINIC CLINIC LABORAT[facility] LABORATO GONORRHOE AE AMPLIFIED PROBE TQ IAADIADOO 97577 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 [address] STREPT[facility] MEDICAL CCUS GROUP GROUP A IADNA 65629 [facility] NEISSERIA 5 [facility] GONORRHOE DEPARTME AE AMPLIFIED PROBE TQ IADNA 36518 [facility] CHLAMYDIA 5 HEALTH CO HEALTH TRACHOMAT DEPARTME IS AMPLIFIED PROBE TQ URINE 72983 [facility] JESSAMINE 5 HEALTH CO TEST HEALTH VISUAL DEPARTME COLOR CMPRSN METHS INJECTION [id number] [facility] JESSAMINE 5 HEALTH CO MEDROXYPR HEALTH OGESTERON DEPARTME E ACETATE 1 MG CONTRACEP [id number] [facility] JESSAMINE TIVE 5 HEALTH CO SUPPLY HEALTH CONDOM DEPARTME MALE EACH IAADIADOO 90734 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 OVERBEE [address] STREPTOCO CARE CCUS GROUP A URINE 29252 [facility] TEST [facility]TH DEPT HLTH DEPT VISUAL JUAN JUAN COLOR CMPRSN METHS IADNA 42747 [facility]LAM[facility] DEPT HLTH DEPT TRACHOMAT JUAN JUAN IS AMPLIFIED PROBE TQ IADNA 85735 [facility] NE[facility] DEPT HLTH DEPT GONORRHOE JUAN JUAN AE AMPLIFIED PROBE TQ CONTRACEP [id number] [facility] TIVE [facility] SUPPLY HLTH DEPT HLTH DEPT CONDOM JUAN JUAN MALE EACH INJECTION J1050 [facility] MEDROXYPR HLTH DEPT HLTH DEPT OGESTERON JUAN JUAN E ACETATE 1 MG URINE 97689 [facility] LAB NAREN 4 PHYSICIAN JOVAN TEST S GROUP HOLDINGS VISUAL COLOR CMPRSN METHS IAADIADOO 53433 [facility] 4 PHYSICIAN PHYSICIAN STREPTOCO S GROUP S GROUP CCUS GROUP A ECG 01979 JOSE G JR JOSE G JR ROUTINE 4 DWI DWI ECG W/LEAST 12 LDS I&[place] [address] [facility] INFUSION 4 [facility] THERAPY/P INC INC ROPHYLAXI S /DX 1ST TO 1 HR ECG 32611 [facility] ROUTINE 4 [facility] ECG INC INC W/LEAST 12 LDS TRCG ONLY W/O I&[place] [address] [facility] LIPASE 4 [facility] INC INC URINE 48528 [facility] 4 [facility] TEST INC INC VISUAL COLOR CMPRSN METHS COMPREHEN 19928 [facility] SIVE 4 [facility] METABOLIC INC INC PANEL THERAPEUT 08107 [facility] IC 4 [facility]OS[facility] INJECTION INC INC IV PUSH EACH NEW DRUG BLOOD 58940 [facility] COUNT 4 [facility] COMPLETE INC INC AUTO&AUTO DIFRNTL WBC URNLS DIP 12500 [facility] 4 [facility] STICK/TAB INC INC LET REAGENT AUTO MICROSCOP Y SCRATCH V2760 [facility] RESISTANT 4 COATING PER LENS LENS V2784 [facility] POLYCARBO 4 [place]ANLEY OR EQUAL ANY INDEX PER LENS FRAMES V2020 [facility] PURCHASES 4 OPHTH 78608 [facility] MEDICAL 4 XM&EVAL COMPRHNSV ESTAB PT 1/> FITTING 29832 [facility] SPECTACLE 4 S XCPT APHAKIA MONOFOCAL SPHERE V2100 [facility] SINGLE 4 VISION PLANO +/- 4.00 PER LENS IAADIADOO 74363 [facility] 4 PHYSICIAN PHYSICIAN STREPTOCO S GROUP S GROUP CCUS GROUP A IAADIADOO 13378 LARISSA YELENA LARISSA YELENA 3 [place] [address] [facility] LIPASE 3 [facility] INC INC RADEX ABD 15109 [facility] COMPL 3 [facility] AQT ABD INC INC W/S/E/D VIEWS 1 [place] [address] [facility] AMYLASE 3 [facility] INC INC COMPREHEN 81118 D[facility] SIVE 3 [facility] METABOLIC INC INC PANEL BLOOD 11377 [facility] COUNT 3 [facility] COMPLETE INC INC AUTO&AUTO DIFRNTL WBC 3D 07052 [facility] RENDERING 3 [facility] INC INC W/INTERP& POSTPROC DIFF WORK STATION URINE 11630 [facility] 3 [facility] TEST INC INC VISUAL COLOR CMPRSN METHS CT SOFT 53393 [facility] TISSUE 3 [facility] NECK W/O INC INC CONTRAST MATERIAL HETEROPHI 86386 [facility] LE 3 PHYSICIAN PHYSICIAN ANTIBODIE S GROUP S GROUP S SCREEN IAADIADOO 15466 LARISSA DIAS YELENA 3 STREPTOCO CCUS GROUP A THERAPEUT 33928 JOHN LOPEZ IC 2 VENTURA VENTURA PROPHYLAC TIC/DX INJECTION SUBQ/IM IAADIADOO 54761 LARISSA DIAS YELENA 2 STREPTOCO CCUS GROUP A URINE 08193 KETTY KETTY 2 GINNY GINNY TEST VISUAL COLOR CMPRSN METHS URNLS DIP 92778 KETTY KETTY 2 GINNY GINNY STICK/TAB LET RGNT NON-AUTO W/O MICRSCP IADNA 73225 A C KELBY STREPTOCO 1 PEYTON DIAZ MERVIN CCUS PSC GROUP A QUANTIFIC ATION BLOOD 64921 A C PEYTON A COUNT 0 PEYTON DIAZ COMPLETE PSC AUTO&AUTO DIFRNTL WBC IADNA 87250 A C KELBY STREPTOCO 0 PEYTON DIAZ MERVIN CCUS PSC GROUP A QUANTIFIC ATION SCREENING 48331 A C KELBY, TEST 9 PEYTON DIAZ GUNJAN [place] [address] [facility] STREPTOCO 8 [facility] CCUS INC INC GROUP A IAADI 10734 D[facility] INFLUENZA 8 [facility] B VIRUS INC INC IAADI 15231 [facility] INFFLUENZ 8 [facility] A A VIRUS INC INC Encounters Encounter Start End Date Code Location Performer Type Date [facility] OUTPATIEN INC T EMERGENCY 08152 [facility] DEPT 7 7 [facility] VISIT INC HIGH SEVERITY& THREAT FUN HOSP[facility] Villalba 7 7 [facility] OUTPATIEN INC T OFFICE 67907 [facility] [place] [place] 7 7 PHYSICIAN T VISIT S GROUP 15 MINUTES EMERGENCY 32935 [facility] 7 7 [facility] DEPARTMEN INC T VISIT HIGH/URGE NT SEVERITY [facility] Villalba 7 7 [facility] OUTPATIEN INC T EMERGENCY 20755 HANSEL MENDEZ DEPT 7 7 PHYSICIAN VISIT S, PLLC HIGH SEVERITY& THREAT FUNJ OFFICE 37600 [facility] [place] [place] 7 7 PHYSICIAN T VISIT S GROUP 25 MINUTES OFFICE 89376 [facility] [place] 7 7 [facility] T NEW 10 INC MINUTES HOSPITAL [facility] - 7 7 [facility] OUTPATIEN INC T OFF[facility] 10457 [facility] 7 [facility] T VISIT DHS/CO TH DEPT 10 [facility] MINUTES OFFICE 19568 [facility] LYLY [place] 7 7 PHYSICIAN T VISIT GROUP 15 MINUTES HOSPITAL DIRK - 7 7 [facility] OUTPATIEN INC T OFFICE 25077 [facility] [place] 7 7 [facility] T VISIT 5 INC MINUTES OFFICE 72721 [facility] LYLY [place] 7 7 PHYSICIAN T VISIT GROUP 25 MINUTES EMERGENCY 95568 HANSEL GANNON DEPT 7 7 PHYSICIAN U VISIT S, PLLC HIGH SEVERITY& THREAT FUNCJ EMERGENCY 91859 [facility] 7 7 [facility] DEPARTMEN INC T VISIT HIGH/URGE NT SEVERITY HOSPITAL [facility] - 7 7 [facility] OUTPATIEN INC T INITIAL 96558 [facility] THORPE PREVENTIV 7 7 PHYSICIAN E S GROUP MEDICINE NEW PT AGE 18-39YRS HOSPITAL D[facility] - 7 7 [facility] OUTPATIEN INC T EMERGENCY 04229 D[facility] 7 7 [facility] V[facility]/M INOR PROB [facility]OSP[facility] D[facility] - 7 7 [facility] OUTPATIEN INC T PERIODIC 03315 [facility] E MED EST DHS/CO HLTH DEPT PATIENT HEALTH JUAN 18-39 YRS OFFICE 85881 [facility] YUMIKO MART OUTPATIEN 6 6 [place] [facility] 15 PSC MINUTES OFFICE 66150 [facility] RAS SCOT OUTPATIEN 6 6 [place] [facility] 15 PSC MINUTES OFFICE 69209 TANVI KASSANDRA KRI OUTPATIEN 6 6 [place] [facility] 15 PSC MINUTES EMERGENCY [address] DEPARTMEN T VISIT MODERATE SEVERITY [facility] [place] [address] HOSPITAL OUTPATIEN T EMERGENCY 35408 [facility] 6 6 [facility] EMERGENCY T VISIT PHYS HIGH/URGE NT SEVERITY OFFICE 94236 [facility] OUTPATI[facility] 6 6 HEALTH T VISIT MEDICAL 15 GROUP MINUTES OFFICE 73187 [facility] OUTPATIEN 5 5 HEALTH T VISIT MEDICAL 15 GROUP MINUTES OFFICE 84583 [facility] FERNÁNDEZ OUTPATIEN 5 5 HEALTH T VISIT MEDICAL 15 GROUP MINUTES OFFICE 00819 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 OUTPATIEN [address] T VISIT MEDICAL 15 GROUP MINUTES OFFICE 04893 DHS/CO JESSAMINE OUTPATIEN 5 5 HEALTH CO T NEW 20 HEALTH MINUTES DEPARTME OFFICE 75467 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 [facility]BEE OUTPATIEN [address] VISIT CARE 15 MINUTES PERIODIC 70132 [facility] EST HLTH DEPT HLTH DEPT PATIENT JUAN JUAN OFFICE 63302 [facility] OUTPATIEN 4 4 PHYSICIAN T VISIT S GROUP 15 MINUTES EMERGENCY 40845 [facility] DEPT 4 4 VISIT HIGH SEVERITY& THREAT [facility] DIRK - 4 4 [facility] OUTPATIEN INC T EMERGENCY 97486 [facility] 4 4 [facility] DEPARTMEN INC T VISIT HIGH/URGE NT SEVERITY OFFICE 20448 KILPELA KILPELA OUTPATIEN 4 4 JEA JEA T VISIT 15 MINUTES OFFICE 83948 [facility] OUTPATIEN 4 4 PHYSICIAN T VISIT S GROUP 10 MINUTES PERIODIC 77068 FIELD AMB FIELD AMB PREVENTIV 4 4 E MED EST PATIENT OFFICE 62133 [facility] OUTPATIEN 4 4 PHYSICIAN T VISIT S GROUP 15 MINUTES OFFICE 45047 [facility] OUTPATIEN 4 4 PHYSICIAN T VISIT S GROUP 15 MINUTES OFFICE 89736 [facility] OUTPATIEN 4 4 PHYSICIAN T VISIT S GROUP 15 MINUTES OFFICE 23453 JOSE SCOT JOSE SCOT OUTPATIEN 4 4 T VISIT 15 MINUTES OFFICE 58899 [facility] OUTPATIEN 4 4 PHYSICIAN T VISIT S GROUP 15 MINUTES OFFICE 77113 [facility] OUTPATIEN [address] T VISIT 15 MINUTES [facility]OSPITAL [facility] - 3 3 HOSPITAL OUTPATIEN T EMERGENCY 73406 RAN JAIME RAN JAM 3 3 DEPARTMEN T VISIT MODERATE SEVERITY OFFICE 92432 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GALE MYLES OUTPATIEN 3 3 EXPRESS ARTHUR T VISIT CARE 15 MINUTES OFFICE 27611 LARISSAJESSICA KIRK LARISSA YELENA OUTPATIEN 3 3 T VISIT 15 MINUTES OFFICE 98249 LARISSA KIRK LARISSA YELENA OUTPATIEN 3 3 T VISIT 15 MINUTES HOSPITAL DIRK - 3 3 [facility] OUTPATIEN INC T OFFICE 03247 [facility] OUTPATIEN 3 3 PHYSICIAN T VISIT S GROUP 15 MINUTES OFFICE 62905 [facility] OUTPATIEN 3 3 PHYSICIAN T VISIT S GROUP 15 MINUTES OFFICE 54168 [facility] OUTPATIEN 3 3 PHYSICIAN T VISIT S GROUP 15 MINUTES OFFICE 42018 KETTY KETTY OUTPATIEN 3 3 GINNY GINNY T VISIT 10 MINUTES Emergency ERIC Baker MD (ER) 3 16:28 3 17:50 [facility] EMERGENCY 78364 DIRK 3 3 [facility] DEPARTMEN INC T VISIT MODERATE SEVERITY EMERGENCY 20523 MICHELLE NIEVES DEPT 3 3 EMERGENCY VISIT SERVICES HIGH SEVERITY& THREAT [facility] DIRK - 3 3 [facility] OUTPATIEN INC T OFFICE 66139 [facility] OUTPATIEN 3 3 PHYSICIAN T VISIT S GROUP 15 MINUTES OFFICE 09196 KILPELA KILPELA OUTPATIEN 3 3 JEA JEA T VISIT 15 MINUTES OFFICE 18583 [facility] OUTPATIEN 3 3 [facility]ISIT [facility] HEAL HEAL OFFICE 85339 [facility] OUTPATIEN 3 3 PHYSICIAN T VISIT S GROUP 15 MINUTES OFFICE 52028 LARISSA KIRK OUTPATIEN 3 3 T VISIT 15 MINUTES OFFICE 36473 [facility] OUTPATIEN 2 2 [facility] 10 HEAL HEAL MINUTES OFFICE 24634 LOPEZ JOHN OUTPATIEN 2 2 VENTURA VENTURA T VISIT 15 MINUTES OFFICE 51572 LARISSA KIRK OUTPATIEN 2 2 T VISIT 15 MINUTES OFFICE 13867 [facility] OUTPATIEN 2 2 [facility] 10 HEAL HEAL MINUTES OFFICE 73060 KELBY LAMA OUTPATIEN 2 2 MERVIN MERVIN T VISIT 15 MINUTES OFFICE 13946 [facility]AZOS OUTPATIEN 2 2 CO [facility] 15 MINUTES OFFICE 23621 DIRK DIRK OUTPATIEN 2 2 [facility] 10 MINUTES OFFICE 36262 KETTY KETTY OUTPATIEN 2 2 GINNY GINNY T VISIT 15 MINUTES OFFICE 89533 DIRK DIRK OUTPATIEN 2 2 [facility] 10 MINUTES OFFICE 13192 [facility] CAVAZOS OUTPATIEN 2 2 [facility] 10 MINUTES OFFICE 14780 PAPPAS PAPPAS OUTPATIEN 2 2 JOSEPH JOSEPH T VISIT 10 MINUTES OFFICE 96186 KETTY KETTY OUTPATIEN 2 2 GINNY GINNY T VISIT 10 MINUTES OFFICE 52474 GABRIELA OCHOA OUTPATIEN 2 2 ROCIO ROCIO T VISIT 10 MINUTES OFFICE 75185 [facility] OUTPATIEN 2 2 [facility] 10 MINUTES OFFICE 10523 [facility] CAVAZOS OUTPATIEN 2 2 [facility] 15 MINUTES OFFICE 35717 [facility] CAVAZOS OUTPATIEN 1 1 [facility] 10 MINUTES OFFICE 28728 KELBY LAMA OUTPATIEN 1 1 MERVIN MERVIN T VISIT 15 MINUTES OFFICE 73471 [facility] OUTPATIEN 1 1 [facility] 10 MINUTES OFFICE 29619 TOBIAS COLLADO OUTPATIEN 1 1 CHR CHR T NEW 30 MINUTES OFFICE 00263 [facility] OUTPATIEN 1 1 [facility] T VISIT 5 [facility] MINUTES OFFICE 35742 [facility] OUTPATIEN 1 1 [facility] 10 MINUTES OFFICE 08168 A C JOSE ELLISON OUTPATIEN 1 1 PEYTON DIAZ T VISIT PSC 15 MINUTES OFFICE 95785 [facility] OUTPATIEN 1 1 [facility] 10 MINUTES OFFICE 23746 [facility] C[facility]OS OUTPATIEN 1 1 [facility] 10 MINUTES OFFICE 70256 A Eloise LAMA OUTPATIEN 1 1 PEYTON DIAZ MERVIN T VISIT PSC 15 MINUTES OFFICE 60294 [facility]AZOS OUTPATIEN 1 1 [facility] 10 MINUTES OFFICE 78032 [facility] CAVAZOS OUTPATIEN 1 1 [facility] 10 MINUTES OFFICE 10545 A C KELBY OUTPATIEN 1 1 PEYTON DIAZ MERVIN T VISIT PSC 15 MINUTES OFFICE 76082 [facility] CAVAZOS OUTPATIEN 1 1 [facility] 10 MINUTES OFFICE 78719 D[facility]K CAVAZOS OUTPATIEN 1 1 [facility] 10 MINUTES OFFICE 20790 [facility]K CAVAZOS OUTPATIEN 1 1 [facility] 10 MINUTES OFFICE 22595 [facility]K CAVAZOS OUTPATIEN 1 1 [facility] 10 MINUTES OFFICE 67172 [facility] CAVAZOS OUTPATIEN 1 1 [facility] 15 MINUTES OFFICE 85414 [facility]K CAVAZOS OUTPATIEN 0 0 [facility] 15 MINUTES OFFICE 36151 [facility] CAV[facility]OS OUTPATIEN 0 0 [facility] 10 MINUTES OFFICE 52006 A C KELBY OUTPATIEN 0 0 PEYTON DIAZ MERVIN T VISIT PSC 15 MINUTES OFFICE 76273 A C KELBY OUTPATIEN 0 0 PEYTON DIAZ MERVIN T VISIT PSC 15 MINUTES OFFICE 11033 A C KELBY OUTPATIEN 0 0 PEYTON DIAZ MERVIN T VISIT PSC 15 MINUTES OFFICE 00449 [facility] CAVAZOS OUTPATIEN 0 0 [facility] 15 MINUTES OFFICE 72894 A C KELBY OUTPATIEN 0 0 PEY[place] DIAZ MERVIN T VISIT PSC 15 MINUTES OFFICE 07344 A C KELBY, OUTPATIEN 0 0 PEYTON DIAZ GUNJAN T VISIT PSC 15 MINUTES OFFICE 16012 A C KELBY, OUTPATIEN 0 0 PEYTON HOLLINS T VISIT PSC 15 MINUTES OFFICE 97139 DHS/CO DIRK OUTPATIEN 9 9 HEALTH CO HEALTH T VISIT [facility] 10 BANK ACCT MINUTES PERIODIC 71161 A Eloise LAMA PREVENTIV 9 9 PEYTON Schaffer MED EST PSC PATIENT 5-11YRS OFFICE 58860 [facility] [place] HOLLINS T NEW 30 PSC MINUTES EMERGENCY 26753 DIRK ROGERS, 8 8 [facility] T VISIT PROF SERV LOW/MODER SEVERITY EMERGENCY 52903 DIRK 8 8 [facility] VISIT MODERATE SEVERITY HOSPITAL DIRK - 8 8 [facility] T
--- OUTSIDE RECORDS SUMMARY | 2017-05-19 06:17 | External Medical Summary Rpt | CCD ---
Author Author , MATT Organization MATT Address Unknown Phone Care Team Providers Care Fire Information Officer Name Role Phone A Eloise TODD MD PSC, A Unavailable Unavailable Eloise TODD MD PSC Johnny Baker MD, Unavailable Unavailable Johnny Baker MD [facility], Unavailable Unavailable [facility] Unavailable Unavailable [facility], [facility] RAN JAM, RAN JAM Unavailable Unavailable RAN JAM, RAN JAM Unavailable Unavailable LYLY, LYLY Unavailable Unavailable LARISSA YELENA, LARISSA YELENA Unavailable Unavailable LU TEN, LU TEN Unavailable Unavailable CHEESEMAN LUCY, Unavailable Unavailable CHEESEMAN LUCY THORPE, THORPE Unavailable Unavailable [facility], Unavailable Unavailable [facility] CANNON KRI, CANNON KRI Unavailable Unavailable DEBBY SUPRIYA, Unavailable Unavailable DEBBY SUPRIYA [facility], [facility] Unavailable [facility]available [facility] Unavailable Unavailable [place], [facility] CY[facility]US[facility] KETTY GINNY, Unavailable Unavailable [...] Unavailable CHAUHAN CRYSTAL, CHAUHAN CRYSTAL Unavailable Unavailable [facility], Unavailable Unavailable [facility], Unavailable Unavailable [facility] Unavailable Unavailable DEPARTME, [facility] Un[facility], [facility] Unavailable Unavailable [facility], [facility] KILPELA JEA, KILPELA Unavailable Unavailable JEA KILPELA JEA, KILPELA Unavailable Unavailable JEA GELA JOLENE, GELA JOLENE Unavailable Unavailable [facility] Unavailable Unavailable [facility], [facility] JOSE G JR DWI, JOSE G Unavailable Unavailable JR DWI [facility] Unavailable Unavailable LABORATO, [facility] Unavailable Un[facility] JOSE SCOT, JOSE SCOT Unavailable Unavailable JOSE SCOT, JOSE SCOT Unavailable Unavailable CALDERON MART, CALDERON MART Unavailable Unavailable HERVE RADHA, HERVE Unavailable Unavailable RADHA [facility] Unavailable Unavailable PSC, [facility] PSC OVERBEE TER, OVERBEE Unavailable Unavailable TER [...] LOPEZ VENTURA, LOPEZ Unavailable Unavailable V[facility]A SMALL, CARMELTIA T, SMALL, Unavailable Unavailable CARMELITA T SOKAN BAB, SOKAN BAB Unavailable Unavailable SOTINGEANU, Unavailable [facility]available [facility], Unavailable Unavailable [facility] Unavailable Unavailable [facility]591, [facility] # Unavailable Unavailable [id number], [facility] # [id number] [facility] Unavailable Unavailable DEPT JUAN, [facility] DENEEN KEATON, WELLS KEATON Unavailable Unavailable WELLS KEATON, [facility] Unavailable Unavailable TOBIAS CHR, TOBIAS Unavailable Unavailable CHR TODD A, TODD A Unavailable Unavailable Purpose Continuity of Care Document - 10-30-2007 through 2016 Problems Code Diagnosis DOS Provider Status O021 MISSED 04-01-2017 [facility] [id number] UTERINE 03-01-2017 [facility] SIZE-DATE [facility] DISCREPANCY INC FIRST TRIMESTER Z36 ENCOUNTER 03-01-2017 [place] [facility] SCREENING OF MOTHER Z3A08 8 WEEKS 03-01-2017 [place] [facility]ATION [facility] OF IMAGING ASS Z3480 ENC 02-28-2017 [facility] SUPERVISION PHYSICIANS OTH NORMAL GROUP PREG UNS TRIMESTER K5900 CONSTIPATIO 02-27-2017 [facility] N PHYSICIANS, UNSPECIFIED PLLC O200 THREATENED 02-27-2017 [facility], [facility] [id number] OTHER SPEC 02-27-2017 [place] [facility]ATED [facility] ASS COND 1ST TRIMESTER R1011 RIGHT UPPER 02-27-2017 [facility] QUADRANT PHYSICIANS, PAIN PLLC R109 UNSPECIFIED 02-27-2017 [place] ABDOMINAL MEDICAL PAIN IMAGING ASS Z3201 ENCOUNTER 02-21-2017 [facility] FOR PHYSICIANS GROUP TEST RESULT POSITIVE K645 PERIANAL 02-16-2017 [facility] VENOUS [facility] THROMBOSIS INC Z331 02-16-2017 [facility] INCIDENTAL INC Z3189 ENCOUNTER 02-02-2017 PUBLIC FOR OTHER HEALTH PROCREATIVE [facility] MANAGEMENT HEALTH J029 ACUTE 12-12-2016 [facility] PHARYNGITIS PHYSICIAN GROUP UNSPECIFIED Z760 ENCOUNTER 12-01-2016 [facility] FOR ISSUE [facility] OF REPEAT INC PRESCRIPTIO N J020 STREPTOCOCC 11-16-2016 [facility] AL PHYSICIAN PHARYNGITIS GROUP K5000 CROHNS 09-22-2016 [facility] DISEASE PHYSICIANS, SMALL PLLC INTESTINE W/O COMP C14219 ENCOUNTER 09-20-2016 [facility] CURTAIN CLEANER EXAM PHYSICIANS GENERAL RTN GROUP W/O ABNORMAL FIND Z3200 ENCOUNTER 09-01-2016 [facility] FOR [facility] TEST RESULT UNKNOWN N910 PRIMARY 08-30-2016 [facility]A [facility] R1013 EPIGASTRIC 08-30-2016 [facility] PAIN [facility] R12 HEARTBURN 08-30-2016 [facility] [id number] ENCOUNTER 08-17-2016 PUBLIC INITIAL HEALTH PRESCRIPTIO DHS/[facility] N HEALTH CONTRACEPT PILLS Z701 ELECTRICIAN DECK REL 08-17-2016 PUBLIC PATIENTS HEALTH SEXUAL [facility] BEHAVIOR&OR HEALTH IENTATION H6693 OTITIS 05-31-2016 [facility] UNSPECIFIED CLINIC PSC BILATERAL J30426 CELLULITIS 03-27-2016 [facility] ABDOMINAL CLINIC PSC WALL Z3049 ENCOUNTER 02-17-2016 [facility] PSC E OTHER CONTRACEPTI VES Z309 ENCOUNTER 02-16-2016 [facility] CONTRACEPTI LABORATO VE MANAGEMENT UNS H5213 MYOPIA 12-15-2015 [facility] [facility] O51488 REGULAR 12-15-2015 [place] [facility] R05 COUGH 10-29-2015 [facility] R110 NAUSEA 10-28-2015 [facility] J069 ACUTE UPPER 07-29-2015 [facility] RESPIRATORY MEDICAL INFECTION GROUP UNSPECIFIED B37406 HORDEOLUM 05-08-2015 [facility] MEDICAL EYELID GROUP V745 SCREENING 03-06-2015 [facility] FOR LABORATO VENEREAL DISEASE 0340 STREPTOCOCC 02-04-2015 [facility] THROAT MEDICAL GROUP V2549 SURVEILLANC 12-06-2014 [facility] E OTH PREV HEALTH PRSC CONTRACEPT METHOD V2689 OTHER 12-06-2014 [facility] SPECIFIED HEALTH PROCREATIVE MANAGEMENT 462 ACUTE 04-01-2014 [facility] PHARYNGIT[facility] 4779 ALLERGIC 04-01-2014 [facility] RHINITIS EXPRESS CAUSE CARE UNSPECIFIED 83940 ABDOMINAL 02-18-2014 [facility] PAIN, PHYSICIANS GENERALIZED GROUP 2768 HYPOPOTASSE 02-03-2014 [facility] JEFF 5589 OTH&UNSPEC 02-03-2014 [facility] NONINFECTIO US GASTROENTER ITIS&COLITI S 20304 PRIMARY 12-28-2013 KILPELA JEA FOCAL HYPERHIDROS IS 7098 OTHER 12-20-2013 [facility] SPECIFIED PHYSICIANS DISORDER OF GROUP SKIN V202 ROUTINE 12-10-2013 FIELD AMB OR CHILD HEALTH CHECK 7231 CERVICALGIA 12-06-2013 [facility] PHYSICIANS GROUP 3671 MYOPIA 2013 CHAUHAN CRYSTAL 76668 ABDOMINAL 11-08-2013 [facility] PAIN, PHYSICIANS EPIGASTRIC GROUP 10591 UNS ADVRS 10-31-2013 [facility] EFF UNS RX PHYSICIANS MEDICINAL&B GROUP IOLOGICAL SBSTNC 8488 OTHER 10-16-2013 JOSE SCOT SPECIFIED [facility] 3829 UNSPECIFIED 10-07-2013 [facility] OTITIS PHYSICIANS MEDIA GROUP 4659 ACUTE URIS 10-07-2013 [facility] OF PHYSICIANS UNSPECIFIED GROUP SITE 4553 EXTERNAL 08-01-2013 [facility] WITHOUT MENTION COMP 19248 ANAL OR 08-01-2013 [facility] [facility] RECTAL PAIN 22960 CHEST PAIN 05-01-2013 [facility] UNSPECIFIED PHYSICIANS GROUP 723.1 723.1 11-21-2012 [facility] ENLARGEMENT 11-21-2012 DEBBY OF LYMPH SUPRIYA [...] ELVA UNSPECIFIED [employer] UNSPECIFIED DEGREE 91889 ABDOMINAL 11-10-2011 KETTY PAIN, GINNY UNSPECIFIED SITE 5368 DYSPEPSIA&O 11-02-2011 [facility] THER SPEC [facility] DISORDERS SCHOOL FUNCTION STOMACH 8489 UNSPECIFIED 09-14-2011 KETTY SITE OF GINNY SPRAIN AND STRAIN 13492 NAUSEA 08-24-2011 DIRK [facility] ALONE [employer] 3804 IMPACTED 08-19-2011 DIRK [facility] CERUMEN [employer] 37266 UNSPECIFIED 08-19-2011 DIRK [facility] OT[place]IA [employer] 46421 NAUSEA WITH 07-21-2011 DIRK [facility]EV[facility] VOMITING [facility] SCHOOL V820 SCREENING 06-22-2011 DIRK [facility] FOR SKIN [facility] CONDITION SCHOOL 1320 PEDICULUS 06-21-2011 DIRK [facility] CAPITIS [employer] 1330 SCABIES 04-01-2011 A Eloise TODD MD PSC 7862 COUGH 11-27-2010 DIRK [facility]EVENSON [facility] S[facility] 23312 FEVER 11-20-2010 DIRK STEVENSON UNSPECIFIED [facility] S[facility]OL 9198 OTH&UNS SUP 11-17-2010 DIRK STEVENSON INJR OT MIDDLE MX&UNS SITE SCHOOL W/O MENTION INF 66155 VOMITING 10-21-2010 A Eloise TODD ALONE PSC [...] ve LO 51 20 20 50 RT MD 95 17 17 95 AM 4 23 PH AR 10 MA CY MG #5 TA 91 BL ET HY 00 09 [address] 18 -1 -0 .0 00 L- ti OX 50 5- 6- 00 07 MA ve YZ 67 20 20 50 RT IN 40 17 17 97 E 1 81 PH PA AR M MA 25 CY MG #5 91 CA P FL 68 09 [address] Ac UO 64 -1 -0 .0 00 L- ti XE 50 5- 6- 00 07 MA ve TI 13 20 20 50 RT NE 15 17 17 97 4 83 PH HC AR L MA 10 CY MG #5 91 CA PS UL E HY 00 08 [address] 40 -3 -2 .0 00 L- ti OC 60 1- 2- 00 02 MA ve OD 12 20 20 24 RT ON 40 17 17 17 -A 1 34 PH CE AR TA MA CA CY NO PH #5 91 7. 5- 32 5 AM 66 08 [address] Ac OX 68 -3 -2 .0 00 L- ti -C 51 0- 2- 00 07 MA ve LA 00 20 20 50 RT V 20 17 17 68 50 0 50 PH 0- AR 12 MA 5 CY MG #5 TA 91 BL ET HY 00 08 [address] 40 -2 -1 .0 00 L- ti OC 60 5- 5- 00 02 MA ve OD 12 20 20 24 RT ON 40 17 17 16 -A 1 72 PH CE AR TA MA CA CY NO PH #5 91 7. 5- 32 5 MD 10 07 [address] Ac OC 63 -1 -0 .3 00 L- ti TO 10 2- 4- 50 07 MA ve SO 40 20 20 49 RT L- 70 17 17 85 HC 1 12 PH AR 2. MA 5% CY CR #5 EA 91 M AZ 59 [address] Ac IT 76 -0 -0 00 00 L- ti HR 23 7- 2- 0 07 MA ve OM 06 20 20 48 RT YC 00 17 17 65 IN 1 45 PH AR 25 MA 0 CY MG #5 TA 91 BL ET MD 00 04 [address] Ac AZ 09 -2 -1 .0 00 L- ti OS 34 6- 9- 00 07 MA ve IN 06 20 20 48 RT 2 80 17 17 46 1 01 PH MG AR MA CA CY PS UL #5 E 91 AM 00 04 [address] Ac OX 09 -1 -0 .0 00 L- ti IC 33 1- 5- 00 07 MA ve IL 10 20 20 48 RT LI 90 17 17 17 N 5 75 PH 50 AR 0 MA MG CY CA #5 PS 91 UL E SP [address] Ac RI 55 -1 -1 .0 00 L- ti NT 59 3- 0- 00 07 MA ve EC 01 20 20 46 RT 65 17 17 38 28 8 99 PH AR DA MA Y CY TA BL #5 ET 91 CI 00 02 [address] Ac MD 17 -1 -1 .0 00 L- ti OF 25 6- 0- 00 07 MA ve LO 31 20 20 47 RT XA 26 17 17 10 CI 0 50 PH N AR HC MA L CY 50 0 #5 MG 91 TA B DO 00 02 [address] Ac C- 60 -1 -1 .0 00 L- ti Q- 30 3- 0- 00 08 MA ve LA 15 20 20 83 RT CE 03 17 17 80 2 75 PH 10 AR 0 MA MG CY SO #5 FT 91 GE L ME 50 02 [address] Ac TR 11 -1 -1 .0 00 L- ti ON 10 6- 0- 00 07 MA ve ID 33 20 20 47 RT AZ 40 17 17 10 OL 2 52 PH E AR 50 MA 0 CY MG #5 TA 91 BL ET OM 60 01 [address] Ac EP 50 -2 -1 .0 00 L- ti RA 50 4- 7- 00 07 MA ve ZO 14 20 20 46 RT LE 60 17 [address] AR MA 40 CY MG #5 91 CA PS UL E ON 57 01 [address] Ac DA 23 -2 -1 .0 00 L- ti NS 70 4- 7- 00 07 MA ve ET 07 20 20 46 RT RO 63 17 17 67 N 0 56 PH HC AR L MA 8 CY MG #5 TA 91 BL ET SP 00 [address] Ac RI 55 -1 -0 .0 00 [...] MA D CY # 10 05 91 MD 68 10 10 0 12 4 WA [...] 0 28 14 WA 70 EN Ac MD 74 -0 -0 .0 L- 81 GL [...] DOS Code Location Performer Comment [place] MISSED 93555 [facility] C[facility] 7 [facility] SECOND INC INC TRIMESTER SURGICAL GONADOTRO 72865 DIRK CAVAZOS PIN 7 [facility] CHORIONIC INC INC QUANTITAT MARZENA PROTHROMB 14202 DIRKFANY CAVAZOS IN TIME 7 [facility] INC INC [place] PREG 31577 D[facility]K CAVAZOS UTERUS 7 [facility] REAL TIME INC INC W/IMAGE DCMTN TRANSVAG COMPREHEN 01300 [facility] C[facility]AZOS SIVE 7 [facility] METABOLIC INC INC PANEL CULTURE 59797 D[facility] C[facility]AZOS BACTERIAL 7 [facility] INC INC QUANTTATI VE COLONY COUNT URINE THROMBOPL 00932 D[facility] C[facility]AZOS ASTIN 7 [facility] TIME INC INC PARTIAL PLASMA/WH OLE BLOOD BLOOD 62733 D[facility]K CAVAZOS COUNT 7 [facility] COMPLETE INC INC AUTO&AUTO DIFRNTL WBC URNLS DIP 47445 DIRK DIRK 7 [facility] STICK/TAB INC INC LET REAGENT AUTO MICROSCOP Y US PREG 19581 D[facility]K CAVAZOS UTERUS 7 [facility] REAL TIME INC INC W/IMAGE DCMTN TRANSVAG US PREG 98501 D[facility]K CAVAZOS UTERUS 7 [facility] REAL TIME INC INC W/IMAGE DCMTN TRANSVAG COMPREHEN 30745 DIRKFANY CAVAZOS SIVE 7 [facility] METABOLIC INC INC PANEL URINE 12324 D[facility]K CAVAZOS 7 [facility] TEST INC [place] [address] D[facility]K CAVAZOS INFUSION 7 [facility] THERAPY/P INC INC ROPHYLAXI S /DX 1ST TO 1 [place] [address] DIRK CAVAZOS ABDOMINAL 7 [facility] REAL INC INC TIME W/IMAGE LIMITED URNLS DIP 54959 DIRK DIRK 7 [facility] STICK/TAB INC INC LET REAGENT AUTO MICROSCOP Y BLOOD 14698 [facility]K CAVAZOS COUNT 7 [facility] COMPLETE INC INC AUTO&[place] [address] D[facility]K C[facility]AZOS INFUSION 7 [facility] THERAPY INC INC PROPHYLAX IS/DX EA HOUR URINE 59616 [facility] THORPE 7 PHYSICIAN TEST S GROUP VISUAL COLOR CMPRSN METHS DRUG TEST 34585 [facility] THORPE PRSMV 7 PHYSICIAN QUAL DIR S GROUP OPTICAL OBS PER DAY URINE 94986 [facility] 7 [facility]ALTH DISTRICT TEST DHS/CO HLTH DEPT VISUAL HEALTH JUAN COLOR CMPRSN METHS CULTURE 59065 D[facility] C[facility]AZOS BACTERIAL 7 [facility] INC INC QUANTTATI VE COLONY COUNT URINE COMPREHEN 24857 [facility]K CAVAZOS SIVE 7 [facility] [place] [address] D[facility]K CAVAZOS LIPASE 7 [facility] [place] [address] D[facility]K CAVAZOS AMYLASE 7 [facility] [place] [address] D[facility]K CAVAZOS LACTATE 7 [facility] INC INC CULTURE 27074 D[facility]K CAVAZOS BACTERIAL 7 [facility] BLOOD INC INC AEROBIC W/ID ISOLATES THER 56178 D[facility]K CAVAZOS PROPH/DX 7 [facility]OS[facility] NJX IV INC INC PUSH SINGLE/1S T SBST/DRUG URINE 03022 D[facility]K CAVAZOS 7 [facility] TEST INC INC VISUAL COLOR CMPRSN METHS BLOOD 86916 [facility] C[facility]AZOS COUNT 7 [facility] COMPLETE INC INC AUTO&AUTO DIFRNTL WBC THERAPEUT 86211 D[facility]K CAVAZOS IC 7 [facility] INJECTION INC INC IV PUSH EACH NEW DRUG URNLS DIP 80526 [facility] CAVAZOS 7 [facility] STICK/TAB INC INC LET REAGENT AUTO MICROSCOP Y URNLS DIP 36581 [facility] THORPE 7 PHYSICIAN STICK/TAB S GROUP LET RGNT NON-AUTO W/O MICRSCP COLLECTIO 75216 D[facility]K CAVAZOS N VENOUS 7 [facility] BLOOD INC INC VENIPUNCT URE GONADOTRO 67556 DIRK CAVAZOS PIN 7 [facility]OS[facility] CHORIONIC INC INC QUANTITAT MARZENA GONADOTRO 17884 DIRK CAVAZOS PIN 7 [facility] CHORIONIC INC INC QUALITATI VE URINE 81163 [facility] CAVAZOS 7 [facility] TEST INC INC VISUAL COLOR CMPRSN METHS URNLS DIP 23559 [facility]AZOS 7 [facility] STICK/TAB INC INC LET REAGENT AUTO MICROSCOP Y CONTRACEP A4267 [facility] 7 HEALTH DISTRICT SUPPLY DHS/CO HL DEPT CONDOM HEALTH JUAN MALE EACH URINE 13052 [facility] 7 [facility] DISTRICT TEST DHS/CO [facility] DEPT VISUAL HEALTH JUAN COLOR CMPRSN [place] SVC PRV 66166 TANVI CALDERON MART OFFICE 6 [facility] SCHEDD PSC EVN WKEND/HOL IDAY HRS IAADIADOO 46409 TANVI CALDERON MART 6 [facility] STREPTOCO CLINIC CCUS PSC GROUP A SVC PRV 13198 TANVI MCGINNIS SCOT OFFICE 6 [facility] SCHEDD PSC EVN WKEND/HOL IDAY HRS INJECTION J1050 [place] KRI 6 [facility] MEDROXYPR [facility]IC OGESTERON PSC E ACETATE 1 MG THERAPEUT 65792 [place] KRI IC 6 [facility] PROPHYLAC [facility]IC TIC/DX PSC INJECTION SUBQ/IM GONADOTRO 16808 [facility] PIN 6 CLINIC CLINIC CHORIONIC LABORATO LABORATO QUANTITAT MARZENA EXC 02786 [place] THROMBOSE 6 [facility] DONALD D CLINIC HEMORRHOI PSC D XTRNL FRAMES V2020 [place] [facility] PURCHASES 6 [facility] 1 VISN V2103 [place] [facility] PLANO 6 [facility] TO+/-4.00 INSTITUTE D SPHER 0.12-2.00 D CYL EA OPHTH 16020 [place] [facility] MEDICAL 6 [facility] XM&EVAL INSTITUTE COMPRE NEW PT 1/> VST FITTING 23403 [facility] S[facility] S XCPT INSTITUTE APHAKIA MONOFOCAL RADIOLOGI 08671 [facility] [address] [place] [address] CHEST 2 VIEWS FRONTAL&L ATERAL GONADOTRO [address] CHORIONIC QUALITATI VE IADNA 35135 [facility] CHLAMYDIA 5 CLINIC CLINIC LABORATO LABORATO TRACHOMAT IS AMPLIFIED PROBE TQ IADNA 14087 [facility] NEISSERIA 5 CLINIC CLINIC LABORATO LABORATO GONORRHOE AE AMPLIFIED PROBE TQ IAADIADOO 20481 [facility] [address] STREPTOCO MEDICAL CCUS GROUP GROUP A IADNA 05611 DHS/CO JESSAMINE NEISSERIA 5 HEALTH CO HEALTH GONORRHOE DEPARTME AE AMPLIFIED PROBE TQ IADNA 10430 DHS/CO JESSAMINE CHLAMYDIA 5 HEALTH CO HEALTH TRACHOMAT DEPARTME IS AMPLIFIED PROBE TQ URINE 24890 DHS/CO JESSAMINE 5 HEALTH CO TEST HEALTH VISUAL DEPARTME COLOR CMPRSN METHS INJECTION J1050 DHS/CO JESSAMINE 5 HEALTH CO MEDROXYPR HEALTH OGESTERON DEPARTME E ACETATE 1 MG CONTRACEP A4267 DHS/CO JESSAMINE TIVE 5 HEALTH CO SUPPLY HEALTH CONDOM DEPARTME MALE EACH IAADIADOO 04032 [facility] [address] ST[address]PTOCO CARE CCUS GROUP A URINE 40842 [facility] TEST HLTH DEPT HLTH DEPT VISUAL JUAN JUAN COLOR CMPRSN METHS IADNA 44408 [facility] HLTH DEPT HLTH DEPT TRACHOMAT JUAN JUAN IS AMPLIFIED PROBE TQ IADNA 55692 [facility] HLTH DEPT HLTH DEPT GONORRHOE JUAN JUAN AE AMPLIFIED PROBE TQ CONTRACEP A4267 [facility] TIVE [facility] DISTRICT SUPPLY HLTH DEPT HLTH DEPT CONDOM JUAN JUAN MALE EACH INJECTION J1050 [facility] DISTRICT MEDROXYPR HLTH DEPT HLTH DEPT OGESTERON JUAN JUAN E ACETATE 1 MG URINE 67233 [facility] LAB NAREN 4 PHYSICIAN JOVAN TEST S GROUP HOLDINGS VISUAL COLOR CMPRSN METHS IAADIADOO 99857 [facility] 4 PHYSICIAN PHYSICIAN STREPTOCO S GROUP S GROUP CCUS GROUP A ECG 49137 JOSE G JR JOSE G JR ROUTINE 4 DWI DWI ECG W/LEAST 12 LDS [place] [address] DIRK CAVAZOS INFUSION 4 [facility] THERAPY/P INC INC ROPHYLAXI S /DX 1ST TO 1 HR ECG 02008 [facility] C[facility]AZOS ROUTINE 4 [facility] ECG INC INC W/LEAST 12 LDS TRCG ONLY W/O I&[place] [address] [facility]K CAVAZOS LIPASE 4 [facility] INC INC URINE 00725 [facility] CAVAZOS 4 [facility] TEST INC INC VISUAL COLOR CMPRSN METHS COMPREHEN 13688 D[facility]K CAVAZOS SIVE 4 [facility] METABOLIC INC INC PANEL THERAPEUT 10087 D[facility]K CAVAZOS IC 4 [facility] INJECTION INC INC IV PUSH EACH NEW DRUG BLOOD 10860 [facility] COUNT 4 [facility] COMPLETE INC INC AUTO&AUTO DIFRNTL WBC URNLS DIP 02187 [facility]OS 4 [facility] STICK/TAB INC INC LET REAGENT AUTO MICROSCOP Y SCRATCH V2760 [facility] RESISTANT 4 COATING PER LENS LENS V2784 [facility] POLYCARBO 4 [place] OR EQUAL ANY INDEX PER LENS FRAMES V2020 [facility] PURCHASES 4 OPHTH 91430 [facility] MEDICAL 4 XM&EVAL COMPRHNSV ESTAB PT 1/> FITTING 72897 [facility] SPECTACLE 4 S XCPT APHAKIA MONOFOCAL SPHERE V2100 [facility] SINGLE 4 VISION PLANO +/- 4.00 PER LENS IAADIADOO 16887 [facility] 4 PHYSICIAN PHYSICIAN STREPTOCO S GROUP S GROUP CCUS GROUP A IAADIADOO 91136 LARISSA YELENA LARISSA YELENA 3 [place] [address] [facility] LIPASE 3 [facility] INC INC RADEX ABD 02081 [facility] COMPL 3 [facility] AQT ABD INC INC W/S/E/D VIEWS 1 [place] [address] [facility] CAV[facility]OS AMYLASE 3 [facility] INC INC COMPREHEN 92966 [facility] SIVE 3 [facility] METABOLIC INC INC PANEL BLOOD 02181 [facility] COUNT 3 [facility] COMPLETE INC INC AUTO&AUTO DIFRNTL WBC 3D 89601 [facility] CAV[facility] RENDERING 3 [facility] INC INC W/INTERP& POSTPROC DIFF WORK STATION URINE 67738 D[facility] CAVAZOS 3 [facility] TEST INC INC VISUAL COLOR CMPRSN METHS CT SOFT 01145 DIRK CAVAZOS TISSUE 3 [facility] NECK W/O INC INC CONTRAST MATERIAL HETEROPHI 11479 [facility] LE 3 PHYSICIAN PHYSICIAN ANTIBODIE S GROUP S GROUP S SCREEN IAADIADOO 21595 LARISSA DIAS YELENA 3 STREPTOCO CCUS GROUP A THERAPEUT 89681 JOHN LOPEZ IC 2 VENTURA VENTURA PROPHYLAC TIC/DX INJECTION SUBQ/IM IAADIADOO 51100 LARISSA DIAS YELENA 2 STREPTOCO CCUS GROUP A URINE 88909 KETTY KETTY 2 GINNY GINNY TEST VISUAL COLOR CMPRSN METHS URNLS DIP 26102 KETTY KETTY 2 GINNY GINNY STICK/TAB LET RGNT NON-AUTO W/O MICRSCP IADNA 66545 A C EKLBY STREPTOCO 1 PEYTON DIAZ MERVIN CCUS PSC GROUP A QUANTIFIC ATION BLOOD 96576 A C PEYTON A COUNT 0 PEYTON DIAZ COMPLETE PSC AUTO&AUTO DIFRNTL WBC IADNA 51975 A C KELBY STREPTOCO 0 PEYTON DIAZ MERVIN CCUS PSC GROUP A QUANTIFIC ATION SCREENING 68785 A C KELBY, TEST 9 PEYTON DIAZ [place] [address] D[facility]K CAVAZOS STREPTOCO 8 [facility] CCUS INC INC GROUP A IAADI 87349 IDRK CAVAZOS INFLUENZA 8 [facility] B VIRUS INC INC IAADI 37402 D[facility]K CAV[facility] INFFLUENZ 8 [facility] A A VIRUS INC INC Encounters Encounter Start End Date Code Location Performer Type Date [facility] - 7 7 [facility] OUTPATIEN INC T EMERGENCY 50079 D[facility] DEPT 7 7 [facility] D[facility]K Villalba 7 7 [facility] T OFFICE 07847 [facility] [place] [place] 7 7 PHYSICIAN T VISIT S GROUP 15 MINUTES EMERGENCY 25953 [facility] 7 7 [facility] DEPARTMEN INC T VISIT HIGH/URGE NT SEVERITY [facility] D[facility] [place] 7 7 [facility] INC T EMERGENCY 17536 HANSEL MENDEZ DEPT 7 7 PHYSICIAN VISIT S, PLLC HIGH SEVERITY& THREAT FUNJ OFFICE 78004 [facility] [place] [place] 7 7 PHYSICIAN T VISIT S GROUP 25 MINUTES OFFICE 54768 [facility] [place] 7 7 [facility] T NEW 10 INC MINUTES [facility]OSPITAL D[facility]K - 7 7 [facility] T OFFICE 29629 [facility] T VISIT DHS/CO TH DEPT 10 [facility] MINUT[facility] OFFICE 26055 [facility] [place] 7 7 PHYSICIAN T VISIT GROUP 15 MINUTES HOSPITAL DIRK - 7 7 [facility] INC T OFFICE 53959 [facility] [place] 7 7 [facility] T VISIT 5 INC MINUTES OFFICE 44688 [facility] [place] 7 7 PHYSICIAN T VISIT GROUP 25 MINUTES EMERGENCY 23851 HANSEL GANNON DEPT 7 7 PHYSICIAN U VISIT S, PLLC HIGH SEVERITY& THREAT FUNCJ EMERGENCY 20784 [facility] 7 7 [facility] DEPARTMEN INC T VISIT HIGH/URGE NT SEVERITY [facility]OSP[facility] - 7 7 [facility] T INITIAL 86430 [facility] PREVENTIV 7 7 PHYSICIAN E S GROUP MEDICINE NEW PT AGE 18-39YRS HOSPITAL DIRK - 7 7 [facility] OUT[facility] INC T EMERGENCY 37364 DIRK 7 7 [facility] V[facility] LIMITED/M [facility] DIRK - 7 7 [facility] OUT[facility] INC T PERIODIC 72565 [facility] 7 [facility] E MED EST DHS/CO HLTH DEPT PATIENT HEALTH JUAN 18-[address] [facility] YUMIKO MART OUTPATIEN 6 6 [place] [facility] 15 PSC MIN[address]ES OFFICE [address]74 [facility] RAS SCOT OUTPATIEN 6 6 [place] [facility] 15 PSC MINUTES OFFICE 64475 TANVI KASSANDRA KRI OUTPATIEN 6 6 [place] [facility] 15 PSC MINUTES EMERGENCY [id number] DEPARTMEN T VISIT MODERATE SEVERITY [facility] [place] [address] HOSPITAL OUTPATIEN T EMERGENCY 37569 [facility] [place] 6 6 [facility] EMERGENCY T VISIT PHYS HIGH/URGE NT SEVERITY OFFICE 99242 [facility] G[facility] OUTPATIEN 6 6 HEALTH T VISIT MEDICAL 15 GROUP MINUTES OFFICE 18976 [facility] OUTPATIEN 5 5 HEALTH T VISIT MEDICAL 15 GROUP MINUTES OFFICE 05514 [facility] FERNÁNDEZ OUTPATIEN 5 5 HEALTH T VISIT MEDICAL 15 GROUP MINUTES OFFICE 29173 [facility] OUTPATIEN [address] T VISIT MEDICAL 15 GROUP MINUTES OFFICE 37953 DHS/CO JESSAMINE OUTPATIEN 5 5 HEALTH CO T NEW 20 HEALTH MINUTES DEPARTME OFFICE 28538 [facility] OUTPATI[facility] [address] VISIT CARE 15 MINUTES PERIODIC 68358 [facility] HLTH DEPT HLTH DEPT PATIENT JUAN JUAN OFFICE 42866 [facility] OUTPATIEN 4 4 PHYSICIAN T VISIT S GROUP 15 MINUTES EMERGENCY 12686 DENEEN PUGH DEPT 4 4 VISIT HIGH SEVERITY& THREAT [facility] DIRK - 4 4 [facility] OUTPATIEN INC T EMERGENCY 24324 [facility] 4 4 [facility] DEPARTMEN INC T VISIT HIGH/URGE NT SEVERITY OFFICE 69384 KILPELA KILPELA OUTPATIEN 4 4 JEA JEA T VISIT 15 MINUTES OFFICE 66750 [facility] OUTPATIEN 4 4 PHYSICIAN T VISIT S GROUP 10 MINUTES PERIODIC 90355 FIELD AMB FIELD AMB PREVENTIV 4 4 E MED EST PATIENT OFFICE 53729 [facility] OUTPATIEN 4 4 PHYSICIAN T VISIT S GROUP 15 MINUTES OFFICE 96159 [facility] OUTPATIEN 4 4 PHYSICIAN T VISIT S GROUP 15 MINUTES OFFICE 53752 [facility] OUTPATIEN 4 4 PHYSICIAN T VISIT S GROUP 15 MINUTES OFFICE 87081 JOSE SCOT JOSE SCOT OUTPATIEN 4 4 T VISIT 15 MINUTES OFFICE 70283 [facility] OUTPATIEN 4 4 PHYSICIAN T VISIT S GROUP 15 MINUTES OFFICE 30151 [facility] OUTPATIEN [address] T VISIT 15 MINUTES [facility] - 3 3 HOSPITAL OUTPATIEN T EMERGENCY [address]60 R[address] JAIME RAN JAM 3 3 DEPARTMEN T VISIT MODERATE SEVERITY OFFICE 43933 [facility] MYLES OUTPATIEN 3 3 EXPRESS ARTHUR T VISIT CARE 15 MINUTES OFFICE 00220 LARISSAJESSICA KIRK LARISSA YELENA OUTPATIEN 3 3 T VISIT 15 MINUTES OFFICE 48124 LARISSA KIRK LARISSA YELENA OUTPATIEN 3 3 T VISIT 15 MINUTES HOSPITAL [facility]K - 3 3 [facility] T OFFICE 65200 [facility] OUTPATIEN 3 3 PHYSICIAN T VISIT S GROUP 15 MINUTES OFFICE 34052 [facility] OUTPATIEN 3 3 PHYSICIAN T VISIT S GROUP 15 MINUTES OFFICE 56696 [facility] OUTPATIEN 3 3 PHYSICIAN T VISIT S GROUP 15 MINUTES OFFICE 49563 KETTY KETTY OUTPATIEN 3 3 GINNY GINNY T VISIT 10 MINUTES Emergency ERIC Baker MD (ER) 3 16:28 3 17:50 [facility] EMERGENCY 38710 DIRK 3 3 [facility] DEPARTMEN INC T VISIT MODERATE SEVERITY EMERGENCY 33849 MICHELLE NIEVES DEPT 3 3 EMERGENCY VISIT SERVICES HIGH SEVERITY& THREAT [facility] DIRK - 3 3 [facility] OUTPATIEN INC T OFFICE 37694 [facility] OUTPATIEN 3 3 PHYSICIAN T VISIT S GROUP 15 MINUTES OFFICE 84620 KILPELA KILPELA OUTPATIEN 3 3 JEA JEA T VISIT 15 MINUTES OFFICE 24501 D[facility] CAVAZOS OUTPATIEN 3 3 [facility] HEAL HEAL OFFICE 50666 [facility] OUTPATIEN 3 3 PHYSICIAN T VISIT S GROUP 15 MINUTES OFFICE 84636 LARISSA KIRK OUTPATIEN 3 3 T VISIT 15 MINUTES OFFICE 10710 D[facility]K CAVAZOS OUTPATIEN 2 2 [facility] 10 HEAL HEAL MINUTES OFFICE 88220 LOPEZ JOHN OUTPATIEN 2 2 VENTURA VENTURA T VISIT 15 MINUTES OFFICE 07820 LARISSA KIRK OUTPATIEN 2 2 T VISIT 15 MINUTES OFFICE 47582 DIRK CAVAZOS OUTPATIEN 2 2 [facility] 10 HEAL HEAL MINUTES OFFICE 26283 KELBY LAMA OUTPATIEN 2 2 MERVIN MERVIN T VISIT 15 MINUTES OFFICE 09651 D[facility]K CAVAZOS OUTPATIEN 2 2 [facility] 15 MINUTES OFFICE 16949 DIRK DIRK OUTPATIEN 2 2 [facility] 10 MINUTES OFFICE 51222 KETTY KETTY OUTPATIEN 2 2 GINNY IGNNY T VISIT 15 MINUTES OFFICE 46623 [facility] DIRK OUTPATIEN 2 2 [facility] 10 MINUTES OFFICE 44636 DIRK CAVAZOS OUTPATIEN 2 2 [facility] 10 MINUTES OFFICE 84391 PAPPAS PAPPAS OUTPATIEN 2 2 JOSEPH JOSEPH T VISIT 10 MINUTES OFFICE 15800 KETTY KETTY OUTPATIEN 2 2 GINNY GINNY T VISIT 10 MINUTES OFFICE 60896 GABRIELA OCHOA OUTPATIEN 2 2 ROCIO ROCIO T VISIT 10 MINUTES OFFICE 15423 DIRK CAVAZOS OUTPATIEN 2 2 [facility] 10 MINUTES OFFICE 32465 DIRK CAVAZOS OUTPATIEN 2 2 [facility] 15 MINUTES OFFICE 06040 DIRK CAVAZOS OUTPATIEN 1 1 [facility] 10 MINUTES OFFICE 01597 KELBY LAMA OUTPATIEN 1 1 MERVIN MERVIN T VISIT 15 MINUTES OFFICE 18330 DIRK CAVAZOS OUTPATIEN 1 1 [facility] 10 MINUTES OFFICE 67130 TOBIAS COLLADO OUTPATIEN 1 1 CHR CHR T NEW 30 MINUTES OFFICE 33921 DIRK CAVAZOS OUTPATIEN 1 1 [facility] T VISIT 5 [facility] MINUTES OFFICE 83124 DIRK CAVAZOS OUTPATIEN 1 1 [facility] 10 MINUTES OFFICE 01277 A C JOSE ELLISON OUTPATIEN 1 1 PEYTON DIAZ T VISIT PSC 15 MINUTES OFFICE 86227 DIRK CAVAZOS OUTPATIEN 1 1 [facility] 10 MINUTES OFFICE 49994 DIRK CAVAZOS OUTPATIEN 1 1 [facility] 10 MINUTES OFFICE 50330 A Eloise LAMA OUTPATIEN 1 1 PEYTON DIAZ MERVIN T VISIT PSC 15 MINUTES OFFICE 98180 DIRK CAVAZOS OUTPATIEN 1 1 [facility] 10 MINUTES OFFICE 27315 DIRK CAVAZOS OUTPATIEN 1 1 [facility] 10 MINUTES OFFICE 07417 A C KELBY OUTPATIEN 1 1 PEYTON DIAZ MERVIN T VISIT PSC 15 MINUTES OFFICE 85881 DIRK CAVAZOS OUTPATIEN 1 1 [facility] 10 MINUTES OFFICE 29082 DIRK CAVAZOS OUTPATIEN 1 1 [facility] 10 MINUTES OFFICE 31587 DIRK CAVAZOS OUTPATIEN 1 1 [facility] 10 MINUTES OFFICE 68367 DIRK CAVAZOS OUTPATIEN 1 1 [facility] 10 MINUTES OFFICE 76513 DIRK CAVAZOS OUTPATIEN 1 1 [facility] 15 MINUTES OFFICE 33447 DIRK CAVAZOS OUTPATIEN 0 0 [facility] 15 MINUTES OFFICE 28326 DIRK CAVAZOS OUTPATIEN 0 0 [facility] 10 MINUTES OFFICE 67849 A C KELBY OUTPATIEN 0 0 PEYTON DIAZ MERVIN T VISIT PSC 15 MINUTES OFFICE 41393 A C KELBY OUTPATIEN 0 0 PEYTON DIAZ MERVIN T VISIT PSC 15 MINUTES OFFICE 95380 A C KELBY OUTPATIEN 0 0 PEYTON DIAZ MERVIN T VISIT PSC 15 MINUTES OFFICE 58144 DIRK CAVAZOS OUTPATIEN 0 0 [facility] 15 MINUTES OFFICE 65011 A C KELBY OUTPATIEN 0 0 PEYTON DIAZ MERVIN T VISIT PSC 15 MINUTES OFFICE 87321 A C KELBY, OUTPATIEN 0 0 [place] DIAZ GUNJAN T VISIT PSC 15 MINUTES OFFICE 02946 A C KELBY, OUTPATIEN 0 0 [place]TON HOLLINS T VISIT PSC 15 MINUTES OFFICE 88569 [facility] DIRK OUTPATIEN 9 9 HEALTH CO HEALTH T VISIT [facility] 10 BANK ACCT MINUTES PERIODIC 00744 A Eloise LAMA PREVENTIV 9 9 PEYTON Schaffer MED EST PSC PATIENT 5-11YRS OFFICE 32366 [facility] 9 [place] HOLLINS T NEW 30 PSC MINUTES EMERGENCY 12403 DIRK ROGERS, 8 8 [facility] T VISIT PROF SERV LOW/MODER SEVERITY EMERGENCY 60462 DIRK 8 [address] [facility] VISIT MODERATE SEVERITY HOSPITAL DIRK - 8 8 [facility] T
--- OUTSIDE RECORDS SUMMARY | 2017-05-19 06:21 | External Medical Summary Rpt | CCD ---
Author Author , JUSTASHERRY Juan Manuel MATT Address Unknown Phone [email or web address] Care Team Providers Care Sterile Processing Manager Name Role Phone A Eloise TODD MD PSC, Ofe Unavailable Unavailable Eloise TODD MD PSC RANDI RUFINO, RANDI Unavailable Unavailable RUFINO [facility], Unavailable Unavailable [facility] Unavailable Unavailable [facility], [facility] RAN JAM, RAN JAM Unavailable Unavailable DARBY, DARBY Unavailable Unavailable LYLY, LYLY Unavailable Unavailable LARISSA YELENA, LARISSA YELENA Unavailable Unavailable LU TEN, LU TEN Unavailable Unavailable CHEESEMAN LUCY, Unavailable Unavailable CHEESEMAN LUCY THORPE, THORPE Unavailable Unavailable [facility], Unavailable Unavailable [facility] CANNON KRI, CANNON KRI Unavailable Unavailable DEBBY SUPRIYA, Unavailable Unavailable DEBBY SUPRIYA DEBBY SUPRIYA, Unavailable Unavailable DEBBY SUPRIYA [facility], [facility] Un[facility] Unavailable Unavailable [place], [facility] [place] KETTY GINNY, Unavailable Unavailable KETTY GINNY KETTY GINNY, Unavailable Unavailable KETTY GINNY [facility], FIELD AMB Unavailable Unavailable [facility], [facility] Unavailable Unavailable GABRIELA ROCIO, GABRIELA Unavailable Unavailable ROCIO SHAMEKA ARTHUR, SHAMEKA Unavailable Unavailable ARTHUR [facility] Unavailable Unavailable [facility], [facility] Unavailable Unavailable [facility] [...] Unavailable CHAUHAN CRYSTAL, CHAUHAN CRYSTAL Unavailable Unavailable [facility], Unavailable Unavailable [facility], Unavailable Unavailable [facility] Un[facility] Unavailable [facility], [facility], [facility] Unavailable Unavailable [facility], [facility] KILPELA JEA, KILPELA Unavailable Unavailable JEA KILPELA JEA, KILPELA Unavailable Unavailable JEA GELA JOLENE, GELA JOLENE Unavailable Unavailable [facility] Unavailable [facility]available [facility], [facility] Unavailable Unavailable LAB[facility]ATO, [facility] JOSE SCOT, JOSE SCOT Unavailable Unavailable JOSE SCOT, JOSE SCOT Unavailable Unavailable CALDERON MART, CALDERON MART Unavailable Unavailable HERVE RADHA, HERVE Unavailable Unavailable RADHA [facility] Unavailable Unavailable PSC, [facility] PSC [address] [address], [facility] Unavailable Unavailable [...] SOKAN BAB Unavailable Unavailable SOTINGEANU, Unavailable [facility], Unavailable Unavailable [facility]ACHANENI RAD, Unavailable Unavailable [facility] Unavailable Unavailable #[id number], [facility] # Unavailable Unavailable [id number], [facility] # [id number] [facility] Unavailable Unavailable DEPT JUAN, [facility] DENEEN PUGH, DENEEN KEATON Unavailable Unavailable DENEEN KEATON, DENEEN KEATON Unavailable Unavailable TOBIAS CHR, TOBIAS Unavailable Unavailable CHR TODD A, TODD A Unavailable Unavailable Purpose Continuity of Care Document - 10-30-2007 through 2016 Problems Code Diagnosis DOS Provider Status O021 MISSED 04-01-2017 [facility] [id number] UTERINE 03-01-2017 [facility]DATE [facility] DISCREPANCY INC FIRST TRIMESTER Z36 ENCOUNTER 03-01-2017 [place] [facility] SCREENING OF MOTHER Z3A08 8 WEEKS 03-01-2017 [place] [facility]STATION [facility]ICAL OF IMAGING ASS Z3480 ENC 02-28-2017 [facility] SUPERVISION PHYSICIANS OTH NORMAL GROUP PREG UNS TRIMESTER K5900 CONSTIPATIO 02-27-2017 [facility] N [facility], UNSPECIFIED PLLC O200 THREATENED 02-27-2017 [facility], [facility] K48629 OTHER SPEC 02-27-2017 [place] [facility] ASS COND 1ST TRIMESTER R1011 RIGHT UPPER 02-27-2017 [facility] QUADRANT PHYSICIANS, PAIN PLLC R109 UNSPECIFIED 02-27-2017 [place] ABDOMINAL [facility]ICAL PAIN IMAGING ASS Z3201 ENCOUNTER 02-21-2017 [facility] FOR PHYSICIANS GROUP TEST RESULT POSITIVE K645 PERIANAL 02-16-2017 [facility] THROMBOSIS INC Z331 02-16-2017 [facility] INCIDENTAL INC Z3189 ENCOUNTER 02-02-2017 [facility] FOR OTHER HEALTH PROCREATIVE [facility] HE[facility] J029 ACUTE 12-12-2016 [facility] PHARYNGITIS PHYSICIAN GROUP UNSPECIFIED Z760 ENCOUNTER 12-01-2016 [facility] FOR ISSUE [facility] OF REPEAT INC PRESCRIPTIO N J020 STREPTOCOCC 11-16-2016 [facility] AL PHYSICIAN PHARYNGITIS GROUP K5000 CROHNS 09-22-2016 [facility] DISEASE PHYSICIANS, SMALL PLLC INTESTINE W/O COMP F70872 ENCOUNTER 09-20-2016 [facility] 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 EXAM PHYSICIANS GENERAL RTN GROUP W/O ABNORMAL FIND Z3200 ENCOUNTER 09-01-2016 [facility] FOR [facility] TEST RESULT UNKNOWN N910 PRIMARY 08-30-2016 [facility] R1013 EPIGASTRIC 08-30-2016 [facility] PAIN [facility] R12 HEARTBURN 08-30-2016 [facility] E49444 ENCOUNTER 08-17-2016 PUBLIC INITIAL HEALTH PRESCRIPTIO [facility] N HEALTH CONTRACEPT PILLS 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 PUBLIC PATIENTS HEALTH SEXUAL [facility] BEHAVIOR&OR HEALTH IENTATION H6693 OTITIS 05-31-2016 NEW MEDIA [facility] U[facility]PECIFIED [facility] PSC BILATERAL R06516 CELLULITIS 03-27-2016 NEW OF [facility]BDOM[facility]AL [facility] PSC WALL Z3049 ENCOUNTER 02-17-2016 NEW FOR [facility] SURVEILLANC [facility] PSC E OTHER CONTRACEPTI VES Z309 ENCOUNTER 02-16-2016 [facility] FOR [facility]INIC CONTRACEPTI LABORATO VE MANAGEMENT UNS H5213 MYOPIA 12-15-2015 [facility] T46783 REGULAR 12-15-2015 [place] [facility]ISM [facility] R05 COUGH 10-29-2015 [facility] R110 NAUSEA 10-28-2015 [facility] J069 ACUTE UPPER 07-29-2015 [facility] RESPIRATORY MEDICAL INFECTION GROUP UNSPECIFIED G28240 HORDEOLUM 05-08-2015 [facility] LEFT LOWER MEDICAL EYELID GROUP V745 SCREENING 03-06-2015 [facility] FOR LABORATO VENEREAL DISEASE 0340 STREPTOCOCC 02-04-2015 [facility] THROAT MEDICAL GROUP V2549 SURVEILLANC 12-06-2014 [facility] E OTH PREV HEALTH PRSC CONTRACEPT METHOD V2689 OTHER 12-06-2014 [facility] SPECIFIED HEALTH PROCREATIVE MANAGEMENT 462 ACUTE 04-01-2014 [facility] PH[facility]NGIT[facility] 4779 ALLERGIC 04-01-2014 [facility] RHINITIS EXPRESS CAUSE CARE UNSPECIFIED 39013 ABDOMINAL 02-18-2014 [facility] PAIN, PHYSICIANS GENERALIZED GROUP 2768 HYPOPOTASSE 02-03-2014 DENEEN PUGH JEFF 5589 OTH&UNSPEC 02-03-2014 DENEEN PUGH NONINFECTIO US GASTROENTER ITIS&COLITI S 23458 PRIMARY 12-28-2013 KILPELA JEA FOCAL HYPERHIDROS IS 7098 OTHER 12-20-2013 [facility] SPECIFIED PHYSICIANS DISORDER OF GROUP SKIN V202 ROUTINE 12-10-2013 FIELD AMB OR CHILD HEALTH CHECK 7231 CERVICALGIA 12-06-2013 [facility] PHYSICIANS GROUP 3671 MYOPIA 2013 CHAUHAN CRYSTAL 71605 ABDOMINAL 11-08-2013 [facility] PAIN, PHYSICIANS EPIGASTRIC GROUP 03655 UNS ADVRS 10-31-2013 [facility] EFF UNS RX PHYSICIANS MEDICINAL&B GROUP IOLOGICAL SBSTNC 8488 OTHER 10-16-2013 JOSE ELLISON SPECIFIED SITES OF SPRAINS AND STRAINS 3829 UNSPECIFIED 10-07-2013 [facility] OTITIS PHYSICIANS MEDIA GROUP 4659 ACUTE URIS 10-07-2013 [facility] OF PHYSICIANS UNSPECIFIED GROUP SITE 4553 EXTERNAL 08-01-2013 [facility] WITHOUT MENTION COMP 34304 ANAL OR 08-01-2013 [place] RECTAL PAIN 06363 CHEST PAIN 05-01-2013 [facility] UNSPECIFIED PHYSICIANS GROUP 7856 ENLARGEMENT 11-21-2012 DEBBY OF LYMPH SUPRIYA NODES 7821 RASH AND 10-06-2012 KILPELA JEA OTHER NONSPECIFIC SKIN ERUPTION 8470 NECK SPRAIN 10-06-2012 KILPELA JEA AND STRAIN 7804 DIZZINESS 10-05-2012 [facility] HEAL 7840 HEADACHE 07-24-2012 [facility] 0790 ADENOVIRUS 06-14-2012 [facility] INFECTION IN CCE & UNS SITE 6253 DYSMENORRHE 04-03-2012 [facility] A [facility] HEAL 9597 INJURY 12-13-2011 [facility] OTHER&UNSPE MIDDLE CIFIED [employer] LEG ANKLE&FOOT 9490 BURN OF 11-11-2011 [facility] UNSPECIFIED MIDDLE SITE SCHOOL UNSPECIFIED DEGREE 13427 ABDOMINAL 11-10-2011 KETTY PAIN, GINNY UNSPECIFIED SITE 5368 DYSPEPSIA&O 11-02-2011 [facility] THER SPEC MIDDLE DISORDERS SCHOOL FUNCTION STOMACH 8489 UNSPECIFIED 09-14-2011 KETTY SITE OF GINNY SPRAIN AND STRAIN 56261 NAUSEA 08-24-2011 [facility] ALONE [employer] 3804 IMPACTED 08-19-2011 [facility] CERUMEN [facility] 25368 UNSPECIFIED 08-19-2011 [facility] OTALGIA [facility] 40925 NAUSEA WITH 07-21-2011 [facility] VOMITING [facility] V820 SCREENING 06-22-2011 [facility] FOR SKIN MIDDLE CONDITION SCHOOL 1320 PEDICULUS 06-21-2011 [facility] CAPITIS [facility] 1330 SCABIES 04-01-2011 A Eloise TODD MD PSC 7862 COUGH 11-27-2010 [facility] 18747 FEVER 11-20-2010 [facility] UNSPECIFIED [facility]LE SCHOOL 9198 OTH&UNS SUP 11-17-2010 [facility] INJR OTH MIDDLE MX&UNS SITE SCHOOL W/O MENTION INF 85845 VOMITING 10-21-2010 A Eloise TODD ALONE PSC 0088 INTESTINAL 05-29-2010 A Eloise TODD INFECTION PSC DUE TO OTHER ORGANISM NEC 7820 DISTURBANCE 03-13-2010 A Eloise TDOD OF SKIN PSC SENSATION V069 NEED PROPH 03-17-2009 [facility] VACCINATION HEALTH W/UNSPEC CENTRAL COMB BANK ACCT VACCINE Medications Na ND Rx Da Fi Fi [...] ve LO 51 20 20 50 RT [place] 95 17 17 95 AM 4 23 PH AR 10 MA CY MG #5 TA 91 BL ET HY 00 09 10 90 [address] [facility] [address] 18 -1 -0 .0 00 L- ti OX 50 5- 6- 00 07 MA ve YZ 67 20 20 50 RT IN 40 17 17 97 E 1 81 PH PA AR M MA 25 CY MG #5 91 CA P FL 68 09 10 30 30 00 [facility] UO 64 -1 -0 .0 00 L- ti XE 50 5- 6- 00 07 MA ve TI 13 20 20 50 RT NE 15 17 17 97 4 83 PH HC AR L MA 10 CY MG #5 91 CA PS UL E HY 00 08 09 20 [address] [facility] [address] 40 -3 -2 .0 00 L- ti OC 60 1- 2- 00 02 MA ve OD 12 20 20 24 RT ON 40 17 17 17 -A 1 34 PH CE AR TA MA NV CY NO PH #5 91 7. 5- 32 5 AM 66 08 09 14 7 00 [facility] OX 68 -3 -2 .0 00 L- ti -C 51 0- 2- 00 07 MA ve LA 00 20 20 50 RT V 20 17 17 68 50 0 50 PH 0- AR 12 MA 5 CY MG #5 TA 91 BL ET HY 00 08 09 12 [address] [facility] [address] 40 -2 -1 .0 00 L- ti OC 60 5- 5- 00 02 MA ve OD 12 20 20 24 RT ON 40 17 17 16 -A 1 72 PH CE AR TA MA NV CY NO PH #5 91 7. 5- 32 5 IL 10 07 08 28 8 00 [facility] OC 63 -1 -0 .3 00 L- ti TO 10 2- 4- 50 07 MA ve SO 40 20 20 49 RT L- 70 17 17 85 HC 1 12 PH AR 2. MA 5% CY CR #5 EA 91 M AZ 59 05 06 6. 5 00 [facility] IT 76 -0 -0 00 00 L- ti HR 23 7- 2- 0 07 MA ve OM 06 20 20 48 RT YC 00 17 17 65 IN 1 45 PH AR 25 MA 0 CY MG #5 TA 91 BL ET IL 00 04 05 30 30 00 FL Ac AZ 09 -2 -1 .0 00 L- ti OS 34 6- 9- 00 07 MA ve IN 06 20 20 48 RT 2 80 17 17 46 1 01 PH MG AR MA CA CY PS UL #5 E 91 AM 00 04 05 20 10 00 FL Ac OX 09 -1 -0 .0 00 L- ti IC 33 1- 5- 00 07 MA ve IL 10 20 20 48 RT LI 90 17 17 17 N 5 75 PH 50 AR 0 MA MG CY CA #5 PS 91 UL E SP 00 02 03 28 28 00 WA Ac RI 55 -1 -1 .0 00 L- ti NT 59 3- 0- 00 07 MA ve EC 01 20 20 46 RT 65 17 17 38 28 8 99 PH AR DA MA Y CY TA BL #5 ET 91 DO 00 02 03 30 30 00 FL Ac C- 60 -1 -1 .0 00 L- ti Q- 30 3- 0- 00 08 MA ve LA 15 20 20 83 RT CE 03 17 17 80 2 75 PH 10 AR 0 MA MG CY SO #5 FT 91 GE L CI 00 02 03 14 7 00 FL Ac IL 17 -1 -1 .0 00 L- ti OF 25 6- 0- 00 07 MA ve LO 31 20 20 47 RT XA 26 17 17 10 CI 0 50 PH N AR HC MA L CY 50 0 #5 MG 91 TA B ME 50 02 03 20 7 00 FL Ac TR 11 -1 -1 .0 00 L- ti ON 10 6- 0- 00 07 MA ve ID 33 20 20 47 RT AZ 40 17 17 10 OL 2 52 PH E AR 50 MA 0 CY MG #5 TA 91 BL ET OM 60 01 02 30 30 00 FL Ac EP 50 -2 -1 .0 00 L- ti RA 50 4- 7- 00 07 MA ve ZO 14 20 20 46 RT LE 60 17 [address] AR MA 40 CY MG #5 91 CA PS UL E ON 57 01 02 20 7 00 FL Ac DA 23 -2 -1 .0 00 L- ti NS 70 4- 7- 00 07 MA ve ET 07 20 20 46 RT RO 63 17 17 67 N 0 56 PH HC AR L MA 8 CY MG #5 TA 91 BL ET SP 00 02 28 28 00 FL Ac RI 55 -1 -0 .0 00 [...] M OF CY NT HI AN A BR 60 04 04 0 12 2 WA 71 RI Ac OM 43 -1 -1 0. L- 15 SH ti FE 20 5- 6- 00 MA 50 ER ve D 83 20 20 0 RT 5 DM 70 11 11 RI 4 PH CH CO AR AR UG MA D H CY SY # RU P 10 05 91 IB 68 04 04 0 20 6 WA 71 RI Ac UP 64 -1 -1 .0 L- 15 SH ti RO 50 5- 6- 00 MA 50 ER ve FE 22 20 20 RT 6 N 15 11 11 RI 60 9 PH CH 0 AR AR MG MA D CY TA # BL ET 10 05 91 66 11 11 0 12 6 WA 70 RI Ac 99 -0 -2 0. L- 96 SH ti 20 9- 9- 00 MA 20 ER ve 22 20 20 0 RT 0 00 10 10 RI 4 PH CH AR AR MA D CY # 10 05 91 IL 68 10 10 0 12 4 WA [...] 0 28 14 WA 70 EN Ac IL 74 -0 -0 .0 L- 81 GL [...] CY 5% #5 CR 91 EA M PE 45 03 03 00 60 7 WA 70 No Ac RM 80 -1 -2 .0 L- 12 t ti ET 20 6- 6- 00 MA 41 Av ve HR 26 20 20 RT 0 ai IN 93 09 09 la 7 PH bl 5% AR e MA CR CY EA M #5 91 Procedures Procedure DOS Code Location Performer [place] PREG [address] [facility] UTERUS [facility] REAL TIME INC INC W/IMAGE DCMTN TRANSVAG URNLS DIP 36104 [facility] STICK/TAB INC INC LET REAGENT AUTO MICROSCOP Y COMPREHEN 32009 [facility] SIVE 7 [facility] METABOLIC INC INC PANEL CULTURE 79936 [facility] BACTERIAL 7 [facility] INC INC QUANTTATI VE COLONY COUNT URINE THROMBOPL 98801 [facility] ASTIN 7 [facility] TIME INC INC PARTIAL PLASMA/WH OLE BLOOD [place] MISSED 18972 [facility] 7 [facility] SECOND INC INC TRIMESTER SURGICAL BLOOD 83687 [facility] COUNT 7 [facility] COMPLETE INC INC AUTO&AUTO DIFRNTL WBC GONADOTRO 67393 D[facility] PIN 7 [facility] CHORIONIC INC INC QUANTITAT MARZENA PROTHROMB 19149 [facility] IN TIME 7 [facility] [place] [address] RADHA DARBY UTERUS 7 MEDICAL REAL TIME IMAGING W/IMAGE ASS DCMTN TRANSVAG US PREG 34713 [facility] UTERUS 7 [facility] REAL TIME INC INC W/IMAGE DCMTN TRANSVAG URINE 88915 [facility] ANNON [facility] TEST INC INC VISUAL COLOR CMPRSN METHS URNLS DIP 35117 [facility]KF[facility] 7 [facility] STICK/TAB INC INC LET REAGENT AUTO MICROSCOP Y COMPREHEN 95331 [facility] SIVE 7 [facility] [place] [address] [facility] ABDOMINAL 7 [facility] REAL INC INC TIME W/[place] [address] [facility] INFUSION 7 [facility] THERAPY INC [place] [address] [facility] INFUSION 7 [facility] THERAPY/P INC INC ROPHYLAXI S /DX 1ST TO 1 HR BLOOD 40103 [facility] COUNT 7 [facility] COMPLETE INC INC AUTO&AUTO DIFRNTL WBC DRUG TEST 88814 [facility] THORPE PRSMV 7 PHYSICIAN QUAL DIR S GROUP OPTICAL OBS PER DAY URINE 02303 [facility] THORPE 7 PHYSICIAN TEST S GROUP VISUAL COLOR CMPRSN METHS URINE 75268 [facility] TEST DHS/CO HLTH DEPT VISUAL HEALTH JUAN COLOR CMPRSN METHS URINE 27579 [facility] 7 [facility] TEST INC INC VISUAL COLOR CMPRSN METHS COMPREHEN 84556 [facility] SIVE 7 [facility] METABOLIC INC INC PANEL URNLS DIP 67112 [facility] 7 [facility] STICK/TAB INC INC [place] [address] [facility] AMYLASE 7 [place] [address] [facility] LACTATE 7 [facility] INC INC CULTURE 97172 D[facility] BACTERIAL 7 [facility] INC INC QUANTTATI VE COLONY COUNT URINE CULTURE 07811 [facility] BACTERIAL 7 [facility] BLOOD INC INC AEROBIC W/ID ISOLATES BLOOD 10899 [facility] COUNT 7 [facility] COMPLETE INC INC AUTO&AUTO DIFRNTL WBC THERAPEUT 90743 [facility] IC 7 [facility] INJECTION INC INC IV PUSH EACH NEW DRUG THER 52364 [facility] PROPH/DX 7 [facility] NJX IV INC INC PUSH SINGLE/1S T SBST/[place] [address] [facility] LIPASE 7 [facility] INC INC URNLS DIP 21671 [facility] THORPE 7 PHYSICIAN STICK/TAB S GROUP LET RGNT NON-AUTO W/O MICRSCP COLLECTIO 27011 [facility] N VENOUS 7 [facility] BLOOD INC INC VENIPUNCT URE GONADOTRO 41606 [facility] PIN 7 [facility] CHORIONIC INC INC QUANTITAT MARZENA GONADOTRO 42312 [facility] PIN 7 [facility] CHORIONIC INC INC QUALITATI VE URNLS DIP 23122 [facility] 7 [facility] STICK/TAB INC INC LET REAGENT AUTO MICROSCOP Y URINE 21505 [facility] 7 [facility] TEST INC INC VISUAL COLOR CMPRSN METHS URINE 82012 [facility] TEST DHS/CO HLTH DEPT VISUAL HEALTH JUAN COLOR CMPRSN METHS CONTRACEP A4267 [facility] TIVE [facility] DISTRICT SUPPLY DHS/CO HLTH DEPT CONDOM HEALTH [place] 72924 TANVI CALDERON MART OFFICE 6 [facility] SCHEDD PSC EVN WKEND/HOL IDAY HRS IAADIADOO 77633 TANVI CALDERON MART 6 [facility] CCUS P[place] S[place] PRV 57165 TANVI MCGINNIS SCOT OFFICE 6 [facility] SCH[facility]D PSC EVN WKEND/HOL IDAY HRS INJECTION J1050 [facility] [place] KRI 6 [facility] MEDROXYPR [facility] OGESTERON PSC E ACETATE 1 MG THERAPEUT 01027 [facility] [place] KRI IC 6 [facility] PROPHYLAC [facility]IC TIC/DX PSC INJECTION SUBQ/IM GONADOTRO 57627 [facility] PIN 6 CLINIC CLINIC CHORIONIC LABORATO LABORATO QUANTITAT MARZENA EXC 90057 NEW [facility] THROMBOSE 6 [facility] HEMORRHOI PSC D XTRNL FITTING 42661 [place] [facility] SPECTACLE 6 EYE ARDHA S XCPT INSTITUTE APHAKIA MONOFOCAL OPHTH 79912 [place] Unmetric MEDICAL 6 EYE RADHA XM&EVAL INSTITUTE COMPRE NEW PT 1/> VST FRAMES V2020 [place] [facility] PURCHASES 6 EYE RADHA INSTITUTE 1 VISN V2103 [place] VEERAMACH PLANO 6 EYE ANENI RAD TO+/-4.00 INSTITUTE D SPHER 0.12-2.00 D CYL EA GONADOTRO [address] [facility] CHORIONIC QUALITATI VE RADIOLOGI 95142 [facility] [place] RANDI C EXAM 6 RADIOLOGY RUFINO CHEST 2 VIEWS FRONTAL&L ATERAL IADNA 38785 [facility] CHLAMYDIA 5 CLINIC CLINIC LABORATO LABORATO TRACHOMAT IS AMPLIFIED PROBE TQ IADNA 25056 [facility] NEISSERIA 5 CLINIC CLINIC LABORATO LABORATO GONORRHOE AE AMPLIFIED PROBE TQ IAADIADOO 89322 [facility] [address] STREPTOCO MEDICAL CCUS GROUP GROUP A IADNA 10277 DHS/CO JESSAMINE NEISSERIA 5 HEALTH CO HEALTH GONORRHOE DEPARTME AE AMPLIFIED PROBE TQ IADNA 28484 DHS/CO JESSAMINE CHLAMYDIA 5 HEALTH CO HEALTH TRACHOMAT DEPARTME IS AMPLIFIED PROBE TQ CONTRACEP A4267 DHS/CO JESSAMINE TIVE 5 HEALTH CO SUPPLY HEALTH CONDOM DEPARTME MALE EACH INJECTION J1050 DHS/CO JESSAMINE 5 HEALTH CO MEDROXYPR HEALTH OGESTERON DEPARTME E ACETATE 1 MG URINE 86161 DHS/CO JESSAMINE 5 HEALTH CO TEST HEALTH VISUAL DEPARTME COLOR CMPRSN METHS IAADIADOO 88767 [facility] [address]REPT[address]O CARE CCUS GROUP A URINE 91481 [facility] TEST TH DEPT HLTH DEPT VISUAL JUAN JUAN COLOR CMPRSN METHS IADNA 36661 [facility] HLTH DEPT HLTH DEPT GONORRHOE JUAN JUAN AE AMPLIFIED PROBE TQ CONTRACEP A4267 [facility] TIVE [facility] SUPPLY [facility] DEPT HL DEPT CONDOM JUAN JUAN MALE EACH INJECTION J1050 [facility] MEDROXYPR [facility] DEPT [facility] DEPT OGESTERON JUAN JUAN E ACETATE 1 MG IADNA 11525 [facility] TH DEPT TH DEPT TRACHOMAT JUAN JUAN IS AMPLIFIED PROBE TQ URINE 20556 [facility] LAB NAREN 4 PHYSICIAN JOVAN TEST S GROUP HOLDINGS VISUAL COLOR CMPRSN METHS IAADIADOO 36642 [facility] 4 PHYSICIAN PHYSICIAN STREPTOCO S GROUP S GROUP CCUS GROUP A THERAPEUT 88010 [facility] IC 4 [facility] INJECTION INC INC IV PUSH EACH NEW DRUG ECG 85406 [facility] ROUTINE 4 ECG W/LEAST 12 LDS I&[place] [address] [facility] INFUSION 4 [facility] THERAPY/P INC INC ROPHYLAXI S /DX 1ST TO 1 HR BLOOD 22959 [facility] COUNT 4 [facility] COMPLETE INC INC AUTO&[place] [address] [facility] LIPASE 4 [facility] INC INC ECG 14969 [facility] ROUTINE 4 [facility] ECG INC INC W/LEAST 12 LDS TRCG ONLY W/O I&R URINE 63171 [facility] 4 [facility] TEST INC INC VISUAL COLOR CMPRSN METHS URNLS DIP 19492 [facility] 4 [facility] STICK/TAB INC INC LET REAGENT AUTO MICROSCOP Y COMPREHEN 41304 [facility] SIVE 4 [facility] METABOLIC INC INC PANEL FITTING 99015 [facility] ROJAS SPECTACLE 4 S XCPT APHAKIA MONOFOCAL OPHTH 34003 GISSEL CHAU[facility]AN [facility] MEDICAL 4 XM&EVAL COMPRHNSV ESTAB PT 1/> SPHERE V2100 GISSEL ROJAS SINGLE 4 VISION PLANO +/- 4.00 PER LENS SCRATCH V2760 [facility] ROJAS RESISTANT 4 COATING PER LENS LENS V2784 G[facility] CRYSTAL POLYCARBO 4 [place] OR EQUAL ANY INDEX PER LENS FRAMES V2020 [facility] PURCHASES 4 IAADIADOO 56909 [facility] 4 PHYSICIAN PHYSICIAN STREPTOCO S GROUP S GROUP CCUS GROUP A IAADIADOO 33531 LARISSA DIAS YELENA 3 [place] [address] [facility] AMYLASE 3 [facility] INC INC RADEX ABD 73930 [facility] COMPL 3 [facility] AQT ABD INC INC W/S/E/D VIEWS 1 VIEW CH COMPREHEN 30897 [facility] SIVE 3 [facility] METABOLIC INC INC PANEL BLOOD 70961 [facility] COUNT 3 [facility] COMPLETE INC INC AUTO&[place] [address] [facility] LIPASE 3 [facility] INC INC URINE 47994 [facility] 3 [facility] TEST INC INC VISUAL COLOR CMPRSN METHS 3D 54684 [facility] RENDERING 3 [facility] INC INC W/INTERP& POSTPROC DIFF WORK STATION CT SOFT 22002 DEBBY DEBBY TISSUE 3 SUPRIYA SUPRIYA NECK W/O CONTRAST MATERIAL HETEROPHI 05355 [facility] LE 3 PHYSICIAN PHYSICIAN ANTIBODIE S GROUP S GROUP S SCREEN IAADIADOO 71908 LARISSA DIAS YELENA 3 STREPTOCO CCUS GROUP A THERAPEUT 55663 JOHN LOPEZ IC 2 VENTURA VENTURA PROPHYLAC TIC/DX INJECTION SUBQ/IM IAADIADOO 48596 LARISSA URBINACK YELENA 2 STREPTOCO CCUS GROUP A URINE 84353 KETTY KETTY 2 GINNY GINNY TEST VISUAL COLOR CMPRSN METHS URNLS DIP 52344 KETTY KETTY 2 GINNY GINNY STICK/TAB LET RGNT NON-AUTO W/O MICRSCP IADNA 47686 A C KELBY STREPTOCO 1 PEYTON DIAZ MERVIN CCUS PSC GROUP A QUANTIFIC ATION BLOOD 99213 A C PEYTON A COUNT 0 PEYTON DIAZ COMPLETE PSC AUTO&AUTO DIFRNTL WBC IADNA 14214 A C KELBY STREPTOCO 0 PEYTON DIAZ MERVIN CCUS PSC GROUP A QUANTIFIC ATION SCREENING 33089 A C KELBY, TEST 9 PEYTON DIAZ GUNJAN PURE TONE PSC AIR ONLY IAADI 50335 [facility] INFLUENZA 8 [facility] B VIRUS INC INC IAADI 86881 [facility] INFFLUENZ 8 [facility] [place] [address] [facility] STREPTOCO 8 [facility] CCUS INC INC GROUP A Encounters Encounter Start End Date Code Location Performer Type Date [facility] 7 [facility] OUTPATIEN INC T EMERGENCY 94612 [facility] DEPT 7 7 [facility] VISIT INC HIGH SEVERITY& THREAT [facility] OUTPATIEN INC T OFFICE 00137 [facility] [place] 7 7 PHYSICIAN T VISIT S GROUP 15 MINUTES EMERGENCY 14684 [facility] 7 7 [facility] DEPARTMEN INC T VISIT HIGH/URGE NT SEVERITY [facility]OSP[facility] 7 [facility] OUTPATIEN INC T EMERGENCY 87894 HANSEL MENDEZ DEPT 7 7 PHYSICIAN VISIT S, PLLC HIGH SEVERITY& THREAT FUNCJ OFFICE 16962 [facility]A OUTPATIEN 7 7 PHYSICIAN T VISIT S GROUP 25 MINUTES OFFICE 32500 [facility] OUTPATIEN 7 7 [facility] T NEW 10 INC MINUTES HOSPITAL [facility] - 7 7 [facility] OUTPATIEN INC T OFFICE 02128 [facility] VISIT [facility] DEPT 10 HEALTH JUAN MINUTES OFFICE 26378 [facility] OUTPATIEN 7 7 PHYSICIAN T VISIT GROUP 15 MINUTES OFFICE 36057 [facility] OUTPATIEN 7 7 [facility] T VISIT 5 INC MINUTES HOSPITAL [facility] - 7 7 [facility] OUTPATIEN INC T OFFICE 17623 [facility] OUTPATIEN 7 7 PHYSICIAN T VISIT GROUP 25 MINUTES HOSPITAL [facility] T EMERGENCY 77220 [facility] T VISIT HIGH/URGE NT SEVERITY EMERGENCY 34956 HANSEL GANNON DEPT 7 7 PHYSICIAN U VISIT S, PLLC HIGH SEVERITY& THREAT FUNCJ INITIAL 05955 [facility] ILA PREVENTIV 7 7 PHYSICIAN E S GROUP MEDICINE NEW PT AGE 18-39YRS [facility] T EMERGENCY 21449 [facility] DEPART[facility] INC T VISIT LIMITED/M INOR PROB PERIODIC 48265 [facility] EST DHS/CO HLTH DEPT PATIENT HEALTH JUAN 18-39 YRS OFFICE 47347 NEW [facility] OUTPATIEN 6 6 [place] [facility] 15 PSC MINUTES OFFICE 89386 TANVI ELLISON OUTPATIEN 6 6 [place] [facility] 15 PSC MINUTES OFFICE 53888 TANVI HDZI OUTPATIEN 6 6 [place] [facility] 15 PSC MINUTES EMERGENCY 52912 [facility] 6 6 [facility] DEPARTMEN EMERGENCY T VISIT PHYS HIGH/URGE NT SEVERITY [facility] 6 6 HOSPITAL OUTPATIEN T EMERGENCY 55149 [facility] 6 6 [facility] DEPARTMEN T VISIT MODERATE SEVERITY OFFICE 08596 [facility] 6 6 [facility]ALTH T VISIT MEDICAL 15 GROUP MINUTES OFFICE 96494 [facility] 5 5 HEALTH T VISIT MEDICAL 15 GROUP MINUTES OFFICE 91904 [facility] 5 5 HEALTH T VISIT MEDICAL 15 GROUP MINUTES OFFICE 26061 [facility] [address] T VISIT MEDICAL 15 GROUP MINUTES OFFICE 13387 [facility] JESSAMINE OUTPATIEN 5 5 HEALTH CO T NEW 20 HEALTH MINUTES DEPARTDE OFFICE 77143 [facility] [address] [facility] VISIT CARE 15 MINUTES PERIODIC 05964 [facility] HLTH DEPT HLTH DEPT PATIENT JUAN JUAN 12-17YRS OFFICE 96930 [facility] OUTPATIEN 4 4 PHYSICIAN T VISIT S GROUP 15 MINUTES EMERGENCY 01531 [facility] 4 4 [facility] DEPART[facility] INC T VISIT HIGH/URGE NT SEVERITY EMERGENCY 93403 DENEEN PUGH DEPT 4 4 VISIT HIGH SEVERITY& THREAT [facility] - [facility] 4 [facility] T OFFICE 65814 KILPE[facility] KILPELA OUTPATIEN 4 4 JEOfe JEA T VISIT 15 MINUTES OFFICE 09486 [facility] OUTPATIEN 4 4 PHYSICIAN T VISIT S GROUP 10 MINUTES PERIODIC 12534 FIELD AMB FIELD AMB PREVENTIV 4 4 E MED EST PATIENT 12-17 OFFICE 16296 [facility] OUTPATIEN 4 4 PHYSICIAN T VISIT S GROUP 15 MINUTES OFFICE 59016 H OUTPATIEN 4 4 PHYSICIAN T VISIT S GROUP 15 MINUTES OFFICE 51425 H OUTPATIEN 4 4 PHYSICIAN T VISIT S GROUP 15 MINUTES OFFICE 32839 JOSE SCOT JOSE SCOT OUTPATIEN 4 4 T VISIT 15 MINUTES OFFICE 28618 [facility] OUTPATIEN 4 4 PHYSICIAN T VISIT S GROUP 15 MINUTES OFFICE 79220 [facility] OUT[facility] [address] T VISIT 15 MINUTES [facility] [place] [address] HOSPITAL OUTPATIEN T EMERGENCY 88834 [place] [address] 3 [facility] DEPARTMEN T VISIT MODERATE SEVERITY OFFICE 71626 [facility] OUTPATI[facility] 3 3 EXPRESS ARTHUR T VISIT CARE 15 MINUTES OFFICE 67518 LARISSA KIRK OUTPATIEN 3 3 T VISIT 15 MINUTES OFFICE 42541 LARISSA DIAS YELENA OUTPATIEN 3 3 T VISIT 15 MINUTES OFFICE 62229 [facility] OUTPATIEN 3 3 PHYSICIAN T VISIT S GROUP 15 MINUTES [facility]PITAL [facility] - [facility] 3 [facility] T OFFICE 98823 [facility] OUTPATIEN 3 3 PHYSICIAN T VISIT S GROUP 15 MINUTES OFFICE 66031 [facility] OUTPATIEN 3 3 PHYSICIAN T VISIT S GROUP 15 MINUTES OFFICE 52153 KETTY KETTY OUTPATIEN 3 3 GINNY GINNY T VISIT 10 MINUTES EMERGENCY 64116 [facility] 3 3 [facility]PART[facility] T VISIT MODERATE SEVERITY [facility] T EMERGENCY 21717 MICHELLE CHATMAN LIZBETH DEPT 3 3 EMERGENCY VISIT SERVICES HIGH SEVERITY& THREAT FUNCJ OFFICE 76508 [facility] OUTPATIEN 3 3 PHYSICIAN T VISIT S GROUP 15 MINUTES OFFICE 11842 KILPELA KILPELA OUTPATIEN 3 3 ZAC JEA T VISIT 15 MINUTES OFFICE 18837 [facility] CAVAZOS OUTPATIEN 3 3 [facility] VISIT [facility] MIN[facility] HEAL HEAL OFFICE 35089 [facility] OUTPATIEN 3 3 PHYSICIAN T VISIT S GROUP 15 MINUTES OFFICE 70119 LARISSA KIRK OUTPATIEN 3 3 T VISIT 15 MINUTES OFFICE 15839 [facility] CAVAZOS OUTPATIEN 2 2 [facility] 10 HEAL HEAL MINUTES OFFICE 84688 JOHN LOPEZ OUTPATIEN 2 2 VENTURA VENTURA T VISIT 15 MINUTES OFFICE 79575 LARISSA KIRK OUTPATIEN 2 2 T VISIT 15 MINUTES OFFICE 67705 [facility] CAVAZOS OUTPATIEN 2 2 [facility] 10 HEAL HEAL MINUTES OFFICE 45303 KELBY LAMA OUTPATIEN 2 2 MERVIN MERVIN T VISIT 15 MINUTES OFFICE 87405 [facility] CAVAZOS OUTPATIEN 2 2 [facility] 15 MINUTES OFFICE 26125 [facility] CAVAZOS OUTPATIEN 2 2 [facility] 10 MINUTES OFFICE 01057 KETTY KETTY OUTPATIEN 2 2 GINNY GINNY T VISIT 15 MINUTES OFFICE 83282 [facility] OUTPATIEN 2 2 [facility] 10 MINUTES OFFICE 49827 [facility] OUTPATIEN 2 2 [facility] 10 MINUTES OFFICE 52848 PAPPAS PAPPAS OUTPATIEN 2 2 JOSEPH JOSEPH T VISIT 10 MINUTES OFFICE 64650 KETTY KETTY OUTPATIEN 2 2 GINNY GINNY T VISIT 10 MINUTES OFFICE 53137 GABRIELA GABRIELA OUTPATIEN 2 2 ROCIO ROCIO T VISIT 10 MINUTES OFFICE 16836 [facility] OUTPATIEN 2 2 [facility] 10 MINUTES OFFICE 91384 [facility] OUTPATIEN 2 2 [facility] 15 MINUTES OFFICE 19181 KELBY KELBY OUTPATIEN 1 1 MERVIN MERVIN T VISIT 15 MINUTES OFFICE 13938 [facility] OUTPATIEN 1 1 [facility] 10 MINUTES OFFICE 43421 [facility] OUTPATIEN 1 1 [facility] 10 MINUTES OFFICE 09003 TOBIAS COLLADO OUTPATIEN 1 1 CHR CHR T NEW 30 MINUTES OFFICE 67127 [facility] OUTPATIEN 1 1 [facility] T VISIT 5 [facility] MINUT[facility] OFFICE 31596 [facility] OUTPATIEN 1 1 [facility] 10 MINUTES OFFICE 69706 Ofe ELLISON OUTPATIEN 1 1 PEYTON MD T VISIT PSC 15 MINUTES OFFICE 58015 [facility] OUTPATIEN 1 1 [facility] 10 MINUTES OFFICE 22800 [facility] OUTPATIEN 1 1 [facility] 10 MINUTES OFFICE 10344 [facility] OUTPATIEN 1 1 [facility] 10 MINUTES OFFICE 73939 A C KELBY OUTPATIEN 1 1 PEYTON DIAZ MERVIN T VISIT PSC 15 MINUTES OFFICE 37170 [facility] OUTPATIEN 1 1 [facility] 10 MINUTES OFFICE 62938 A C KELBY OUTPATIEN 1 1 PEYTON DIAZ MERVIN T VISIT PSC 15 MINUTES OFFICE 00028 [facility] OUTPATIEN 1 1 [facility] 10 MINUTES OFFICE 57474 [facility] OUTPATIEN 1 1 [facility] 10 MINUTES OFFICE 91312 [facility] OUTPATIEN 1 1 [facility] 10 MINUTES OFFICE 78374 [facility] OUTPATIEN 1 1 [facility] 10 MINUTES OFFICE 93100 [facility] OUTPATIEN 1 1 [facility] 15 MINUTES OFFICE 58537 [facility] ANNON OUTPATIEN 0 0 [facility] 15 MINUTES OFFICE 62246 [facility] ANNON OUTPATIEN 0 0 [facility] 10 MINUTES OFFICE 46391 A C KELBY OUTPATIEN 0 0 PEY[place] DIAZ MERVIN T VISIT PSC 15 MINUTES OFFICE 43495 A C KELBY OUTPATIEN 0 0 PE[place] DIAZ MERVIN T VISIT PSC 15 MINUTES OFFICE 01364 A C KELBY OUTPATIEN 0 0 [place] DIAZ MERVIN T VISIT PSC 15 MINUTES OFFICE 10149 [facility] OUTPATIEN 0 0 [facility] 15 MINUTES OFFICE 90461 A Eloise LAMA OUTPATIEN 0 0 [facility] JEFFRIES T VISIT PSC 15 MINUTES OFFICE 49341 A Eloise LAMA OUTPATIEN 0 0 [place] HOLLINS T VISIT PSC 15 MINUTES OFFICE 02606 A Eloise LAMA OUTPATIEN 0 0 [place] HOLLINS T VISIT PSC 15 MINUTES OFFICE 15554 [facility] OUTPATIEN 9 9 HEALTH CO HEALTH T VISIT [facility] 10 BANK ACCT MINUTES PERIODIC 81629 Ofe LAMA, PREVENTIV 9 9 [place] HOLLINS E MED EST PSC PATIENT 5-11YRS OFFICE 72980 CATRACHITO RODRIGUEZ 9 9 [place] HOLLINS T NEW 30 PSC MINUTES EMERGENCY 47701 [facility] 8 8 [facility] DEPART[facility] INC T VISIT MODERATE SEVERITY EMERGENCY 60078 [facility] ROGERS, 8 8 [facility] T VISIT PROF SERV LOW/MODER SEVERITY [facility]OSP[facility] - 8 8 [facility] T
--- OUTSIDE RECORDS SUMMARY | 2017-05-19 06:21 | External Medical Summary Rpt | CCD ---
Author Author , JUSTASHERRY Juan Manuel MATT Address Unknown Phone [email or web address] Team Providers Care Color Technician Name Role Phone A Eloise TODD MD PSC, Ofe Unavailable Unavailable Eloise TODD MD PSC RANDI RUFINO, RANDI Unavailable Unavailable RUFINO [facility], Unavailable Unavailable [facility] Unavailable Unavailable [facility], [facility] RAN JAM, RAN JAM Unavailable [...] SUPRIYA [facility], [facility] Unavailable Unavailable [facility] Un[facility] [place]available [place], [facility] [place] KETTY GINNY, Unavailable Unavailable KETTY GINNY KETTY GINNY, Unavailable Unavailable KETTY GINNY [facility], [facility] Unavailable Unavailable [facility], [facility] Unavailable Unavailable GABRIELA ROCIO, GABRIELA Unavailable Unavailable ROCIO SHAMEKA ARTHUR, SHAMEKA Unavailable Unavailable ARTHUR [facility] Unavailable Unavailable [place], [facility] Unavailable [facility]available [facility], [...] Unavailable CHAUHAN CRYSTAL, CHAUHAN CRYSTAL Unavailable Unavailable [facility], Unavailable [facility]available [facility], Unavailable Unavailable [facility] Unavailable Unavailable [facility], [facility] Un[facility], [facility] KILPELA JEA, KILPELA Unavailable Unavailable JEA KILPELA JEA, KILPELA Unavailable Unavailable JEA GELA JOLENE, GELA JOLENE Unavailable Unavailable [facility] Unavailable [facility]available [facility], [facility] Unavailable Unavailable LABORATO, [facility] Unavailable [facility] JOSE SCOT, JOSE SCOT Unavailable Unavailable JOSE SCOT, JOSE SCOT Unavailable Unavailable CALDERON MART, CALDERON MART Unavailable Unavailable HERVE RADHA, HERVE Unavailable Unavailable RADHA [facility] Unavailable Unavailable PSC, [facility] PSC [address] [address], [facility] Unavailable Unavailable [...] SOKAN BAB Unavailable Unavailable SOT[facility]EANU, Unavailable [facility], Unavailable Unavailable [facility] VEERAMACHANENI RAD, Unavailable Unavailable VEERAMACHANENI RAD [facility] Unavailable Unavailable #591, [facility] # Unavailable Unavailable [id number], [facility] # [id number] [facility] Unavailable Unavailable DEPT JUAN, [facility] DENEEN PUGH, DENEEN KEATON Unavailable Unavailable DENEEN KEATON, DENEEN KEATON Unavailable Unavailable TOBIAS CHR, TOBIAS Unavailable Unavailable CHR TODD A, TODD A Unavailable Unavailable Purpose Continuity of Care Document - 10-30-2007 through 2016 Problems Code Diagnosis DOS Provider Status O021 MISSED 04-01-2017 [facility] [id number] UTERINE 03-01-2017 [facility]DATE [facility] DISCREPANCY INC FIRST TRIMESTER Z36 ENCOUNTER 03-01-2017 [facility] SCREENING OF MOTHER Z3A08 8 WEEKS 03-01-2017 [facility] OF IMAGING ASS Z3480 ENC 02-28-2017 [facility] SUPERVISION PHYSICIANS OTH NORMAL GROUP PREG UNS TRIMESTER K5900 CONSTIPATIO 02-27-2017 [facility] N [facility], UNSPECIFIED PLLC O200 THREATENED 02-27-2017 [facility], [facility] R67162 OTHER SPEC 02-27-2017 [facility] COND 1ST TRIMESTER R1011 RIGHT UPPER 02-27-2017 [facility] QUADRANT PHYS[facility]IANS, PAIN PLLC R109 UNSPECIFIED 02-27-2017 [facility]AL [facility]IN IMAGING ASS Z3201 ENCOUNTER 02-21-2017 [facility] FOR PHYSICIANS GROUP TEST RESULT POSITIVE K645 PERIANAL 02-16-2017 [facility] THROMBOSIS INC Z331 02-16-2017 [facility] INCIDENTAL INC Z3189 ENCOUNTER 02-02-2017 [facility] FOR OTHER HEALTH PROCREATIVE [facility] MANAGEMENT HEALTH J029 ACUTE 12-12-2016 [facility] PHARYNGITIS PHYSICIAN GROUP UNSPECIFIED Z760 ENCOUNTER 12-01-2016 [facility] FOR ISSUE [facility] OF REPEAT INC PRESCRIPTIO N J020 STREPTOCOCC 11-16-2016 [facility] AL PHYSICIAN PHARYNGITIS GROUP K5000 CROHNS 09-22-2016 [facility] DISEASE PHYSICIANS, SMALL PLLC INTESTINE W/O COMP T37348 ENCOUNTER 09-20-2016 [facility] BIOMASS [employer] SUPERINTENDENT EXAM PHYSICIANS GENERAL RTN GROUP W/O ABNORMAL FIND Z3200 ENCOUNTER 09-01-2016 [facility] FOR [facility] TEST RESULT UNKNOWN N910 PRIMARY 08-30-2016 [facility] R1013 EPIGASTRIC 08-30-2016 [facility] PAIN [facility] INC R12 HEARTBURN 08-30-2016 [facility] A16568 ENCOUNTER 08-17-2016 PUBLIC INITIAL HEALTH PRESCRIPTIO DHS/CO N HEALTH CONTRACEPT PILLS Z701 SHADE HANGER REL 08-17-2016 PUBLIC PATIENTS HEALTH SEXUAL DHS/CO BEHAVIOR&OR HEALTH IENTATION H6693 OTITIS 05-31-2016 NEW [facility]IA [place] [facility]PEC[facility] PSC BILATERAL T28944 CELLULITIS 03-27-2016 NEW OF [place] [facility]OM[facility]AL [facility] PSC WALL Z3049 ENCOUNTER 02-17-2016 NEW FOR [place] [facility] PSC E OTHER CONTRACEPTI VES Z309 ENCOUNTER 02-16-2016 [place] FOR [facility] CONTRACEPTI LABORATO VE MANAGEMENT UNS H5213 MYOPIA 12-15-2015 [facility] G26538 REGULAR 12-15-2015 [facility] R05 COUGH 10-29-2015 [facility] [place] [facility] R110 NAUSEA 10-28-2015 [facility] J069 ACUTE UPPER 07-29-2015 [facility] UNSPECIFIED C51863 HORDEOLUM 05-08-2015 [facility] LEFT LOWER MEDICAL EYELID GROUP V745 SCREENING 03-06-2015 [place] [facility] FOR LABORATO VENEREAL DISEASE 0340 STREPTOCOCC 02-04-2015 [facility] TH[facility]ICAL GROUP V2549 SURVEILLANC 12-06-2014 [facility] E OTH PREV HEALTH PRSC CONTRACEPT METHOD V2689 OTHER 12-06-2014 [facility] SPECIFIED HEALTH PROCREATIVE MANAGEMENT 462 ACUTE 04-01-2014 [facility] 4779 ALLERGIC 04-01-2014 [facility] RHINITIS [facility] CAUSE CARE UNSPECIFIED 61657 ABDOMINAL 02-18-2014 [facility] PAIN, PHYSICIANS GENERALIZED GROUP 2768 HYPOPOTASSE 02-03-2014 DENEEN PUGH JEFF 5589 OTH&UNSPEC 02-03-2014 DENEEN PUGH NONINFECTIO US GASTROENTER ITIS&COLITI S 49193 PRIMARY 12-28-2013 KILPELA JEA FOCAL HYPERHIDROS IS 7098 OTHER 12-20-2013 [facility] SPECIFIED PHYSICIANS DISORDER OF GROUP SKIN V202 ROUTINE 12-10-2013 FIELD AMB OR CHILD HEALTH CHECK 7231 CERVICALGIA 12-06-2013 [facility] PHYSICIANS GROUP 3671 MYOPIA 2013 CHAUHAN CRYSTAL 26845 ABDOMINAL 11-08-2013 [facility] PAIN, PHYSICIANS EPIGASTRIC GROUP 35733 UNS ADVRS 10-31-2013 [facility] EFF UNS RX PHYSICIANS MEDICINAL&B GROUP IOLOGICAL SBSTNC 8488 OTHER 10-16-2013 JOSE ELLISON SPECIFIED SITES OF SPRAINS AND STRAINS 3829 UNSPECIFIED 10-07-2013 [facility] OTITIS PHYSICIANS MEDIA GROUP 4659 ACUTE URIS 10-07-2013 [facility] OF PHYSICIANS UNSPECIFIED GROUP SITE 4553 EXTERNAL 08-01-2013 [facility] WITHOUT MENTION COMP 59783 ANAL OR 08-01-2013 [place] RECTAL PAIN 43311 CHEST PAIN 05-01-2013 [facility] UNSPECIFIED PHYSICIANS GROUP 7856 ENLARGEMENT 11-21-2012 DEBBY [...] [facility] UNSPEC[facility]IED [employer] UNSPECIFIED DEGREE 62834 ABDOMINAL 11-10-2011 KETTY PAIN, GINNY UNSPECIFIED SITE 5368 DYSPEPSIA&O 11-02-2011 [facility] THER SPEC [facility] DISORDERS SCHOOL FUNCTION STOMACH 8489 UNSPECIFIED 09-14-2011 KETTY SITE OF GINNY SPRAIN AND STRAIN 58213 NAUSEA 08-24-2011 [facility] ALONE [employer] 3804 IMPACTED 08-19-2011 [facility] CERUMEN [facility] 79895 UNSPECIFIED 08-19-2011 [facility] OTALGIA [employer] 23680 NAUSEA WITH 07-21-2011 [facility] VOMITING [facility] V820 SCREENING 06-22-2011 [facility] FOR SKIN MIDD[facility] CONDITION S[facility]OL 1320 PEDICULUS 06-21-2011 [facility] CAPITIS [employer] [facility] 1330 SCABIES 04-01-2011 A Eloise TODD MD PSC 7862 COUGH 11-27-2010 [facility] [employer] 08033 FEVER 11-20-2010 [facility] UNSPECIFIED [facility] 9198 OTH&UNS SUP 11-17-2010 [facility] INJR OTH MIDDLE MX&UNS SITE SCHOOL W/O MENTION INF 84800 VOMITING 10-21-2010 A Eloise TODD ALONE PSC [...] ve LO 51 20 20 50 RT NH 95 17 17 95 AM 4 23 PH AR 10 MA CY MG #5 TA 91 BL ET HY 00 09 10 [address] [facility] [address] 18 -1 -0 .0 00 L- ti OX 50 5- 6- 00 07 MA ve YZ 67 20 20 50 RT IN 40 17 17 97 E 1 81 PH PA AR M MA 25 CY MG #5 91 CA P FL 68 09 10 30 30 00 [facility] UO 64 -1 -0 .0 00 L- ti XE 50 5- 6- 00 07 MA ve TI 13 20 20 50 RT NE 15 17 17 97 4 83 PH HC AR L MA 10 CY MG #5 91 CA PS UL E HY 00 08 09 [address] [facility] [address] 40 -3 -2 .0 00 L- ti OC 60 1- 2- 00 02 MA ve OD 12 20 20 24 RT ON 40 17 17 17 -A 1 34 PH CE AR TA MA NV CY NO PH #5 91 7. 5- 32 5 AM 66 08 09 14 7 00 [facility] OX 68 -3 -2 .0 00 L- ti -C 51 0- 2- 00 07 MA ve LA 00 20 20 50 RT V 20 17 17 68 50 0 50 PH 0- AR 12 MA 5 CY MG #5 TA 91 BL ET HY 00 08 09 [address] [facility] [address] 40 -2 -1 .0 00 L- ti OC 60 5- 5- 00 02 MA ve OD 12 20 20 24 RT ON 40 17 17 16 -A 1 72 PH CE AR TA MA NV CY NO PH #5 91 7. 5- 32 5 NH 10 07 08 28 8 00 [facility] OC 63 -1 -0 .3 00 L- ti TO 10 2- 4- 50 07 MA ve SO 40 20 20 49 RT L- 70 17 17 85 HC 1 12 PH AR 2. MA 5% CY CR #5 EA 91 M AZ 59 05 06 6. 5 00 [facility] IT 76 -0 -0 00 00 L- ti HR 23 7- 2- 0 07 MA ve OM 06 20 20 48 RT YC 00 17 17 65 IN 1 45 PH AR 25 MA 0 CY MG #5 TA 91 BL ET NH 00 04 05 30 30 00 AR Ac AZ 09 -2 -1 .0 00 L- ti OS 34 6- 9- 00 07 MA ve IN 06 20 20 48 RT 2 80 17 17 46 1 01 PH MG AR MA CA CY PS UL #5 E 91 AM 00 04 05 20 10 00 AR Ac OX 09 -1 -0 .0 00 [...] DO 00 02 03 30 30 00 AR Ac C- 60 -1 -1 .0 00 L- ti Q- 30 3- 0- 00 08 MA ve LA 15 20 20 83 RT CE 03 17 17 80 2 75 PH 10 AR 0 MA MG CY SO #5 FT 91 GE L CI 00 02 03 14 7 00 AR Ac NH 17 -1 -1 .0 00 L- ti OF 25 6- 0- 00 07 MA ve LO 31 20 20 47 RT XA 26 17 17 10 CI 0 50 PH N AR HC MA L CY 50 0 #5 MG 91 TA B ME 50 02 03 20 7 00 AR Ac TR 11 -1 -1 .0 00 L- ti ON 10 6- 0- 00 07 MA ve ID 33 20 20 47 RT AZ 40 17 17 10 OL 2 52 PH E AR 50 MA 0 CY MG #5 TA 91 BL ET OM 60 01 02 30 30 00 AR Ac EP 50 -2 -1 .0 00 L- ti RA 50 4- 7- 00 07 MA ve ZO 14 20 20 46 RT LE 60 17 [address] AR MA 40 CY MG #5 91 CA PS UL E ON 57 01 02 20 7 00 AR Ac DA 23 -2 -1 .0 00 L- ti NS 70 4- 7- 00 07 MA ve ET 07 20 20 46 RT RO 63 17 17 67 N 0 56 PH HC AR L MA 8 CY MG #5 TA 91 BL ET SP 00 02 28 28 00 AR Ac RI 55 -1 -0 .0 00 [...] MA D CY # 10 05 91 NH 68 10 10 0 12 4 WA [...] 0 28 14 WA 70 EN Ac NH 74 -0 -0 .0 L- 81 GL [...] DOS Code [place] Performer [place] PREG [address]69 [facility] U[facility]US [facility] REAL TIME INC INC W/IMAGE DCMTN TRANSVAG URNLS DIP 97776 [facility] STICK/TAB INC INC LET REAGENT AUTO MICROSCOP Y COMPREHEN 59379 [facility] SIVE 7 [facility] METABOLIC INC INC PANEL CULTURE 22588 [facility] BACTERIAL 7 [facility] INC INC QUANTTATI VE COLONY COUNT URINE THROMBOPL 76423 [facility] ASTIN 7 [facility] TIME INC INC PARTIAL PLASMA/WH OLE BLOOD [place] MISSED 59076 [facility] 7 [facility] SECOND INC INC TRIMESTER SURGICAL BLOOD 94014 [facility] COUNT 7 [facility] COMPLETE INC INC AUTO&AUTO DIFRNTL WBC GONADOTRO 13484 D[facility] PIN 7 [facility] CHORIONIC INC INC QUANTITAT MARZENA PROTHROMB 88112 [facility]KFANY C[facility] IN TIME 7 [facility] [place] 84674 RADHA DARBY UTERUS 7 MEDICAL REAL TIME IMAGING W/IMAGE ASS DCMTN TRANSVAG US PREG 27153 [facility] UTERUS 7 [facility] REAL TIME INC INC W/IMAGE DCMTN TRANSVAG URINE 77465 [facility] ANNON 7 [facility] TEST INC INC VISUAL COLOR CMPRSN METHS URNLS DIP 65345 [facility]KFANY [facility]OS 7 [facility] STICK/TAB INC INC LET REAGENT AUTO MICROSCOP Y COMPREHEN 17123 [facility]KFANY [facility] SIVE 7 [facility] [place] [address] [facility] ABDOMINAL 7 [facility] REAL INC INC TIME W/[place] [address] [facility] INFUSION 7 [facility] THERAPY INC [place] [address] [facility] INFUSION 7 [facility] THERAPY/P INC INC ROPHYLAXI S /DX 1ST TO 1 HR BLOOD 57870 [facility]NON COUNT 7 [facility] COMPLETE INC INC AUTO&AUTO DIFRNTL WBC DRUG TEST 17774 [facility] THORPE PRSMV 7 PHYSICIAN QUAL DIR S GROUP OPTICAL OBS PER DAY URINE 37242 [facility] THORPE 7 PHYSICIAN TEST S GROUP VISUAL COLOR CMPRSN METHS URINE 35814 [facility] TEST DHS/CO HLTH DEPT VISUAL HEALTH JUAN COLOR CMPRSN METHS URINE 33806 [facility] 7 [facility] TEST INC INC VISUAL COLOR CMPRSN METHS COMPREHEN 45176 [facility] SIVE 7 [facility] METABOLIC INC INC PANEL URNLS DIP 72178 [facility] 7 [facility] STICK/TAB INC INC [place] [address] [facility] AMYLASE 7 [place] [address] [facility] LACTATE 7 [facility] INC INC CULTURE 48099 D[facility] BACTERIAL 7 [facility] INC INC QUANTTATI VE COLONY COUNT URINE CULTURE 71930 [facility] BACTERIAL 7 [facility] BLOOD INC INC AEROBIC W/ID ISOLATES BLOOD 74684 [facility] COUNT 7 [facility] COMPLETE INC INC AUTO&AUTO DIFRNTL WBC THERAPEUT 38774 [facility] IC 7 [facility] INJECTION INC INC IV PUSH EACH NEW DRUG THER 71104 D[facility] PROPH/DX 7 [facility] NJX IV INC INC PUSH SINGLE/1S T SBST/[place] [address] [facility] LIPASE 7 [facility] INC INC URNLS DIP 75952 [facility] THORPE 7 PHYSICIAN STICK/TAB S GROUP LET RGNT NON-AUTO W/O MICRSCP COLLECTIO 57592 [facility] N VENOUS 7 [facility] BLOOD INC INC VENIPUNCT URE GONADOTRO 28965 [facility] PIN 7 [facility] CHORIONIC INC INC QUANTITAT MARZENA GONADOTRO 48340 [facility] PIN 7 [facility] CHORIONIC INC INC QUALITATI VE URNLS DIP 24861 [facility] 7 [facility] STICK/TAB INC INC LET REAGENT AUTO MICROSCOP Y URINE 65587 [facility] 7 [facility] TEST INC INC VISUAL COLOR CMPRSN METHS URINE 78655 [facility] TEST DHS/CO HLTH DEPT VISUAL HEALTH JUAN COLOR CMPRSN METHS CONTRACEP A4267 [facility] TIVE [facility] DISTRICT SUPPLY DHS/CO HLTH DEPT CONDOM HEALTH [place] 17415 TANVI CALDERON MART OFFICE 6 [place] [facility] SCHEDD PSC EVN WKEND/HOL IDAY HRS IAADIADOO 81811 TANVI CALDERON MART 6 [place] [facility] CCUS PSC GROUP A SVC PRV 96886 TANVI MCGINNIS SCOT OFFICE 6 [facility] SCHEDD PSC EVN WKEND/HOL IDAY HRS INJECTION J1050 [place] KRI 6 [place] [facility] OGESTERON PSC E ACETATE 1 MG THERAPEUT 95515 [place] KRI IC 6 [place] PROPHYLAC CLINIC TIC/DX PSC INJECTION SUBQ/IM GONADOTRO 24934 [facility] PIN 6 CLINIC CLINIC CHORIONIC LABORATO LABORATO QUANTITAT MARZENA EXC 17119 [place] THROMBOSE 6 [place] [facility] HEMORRHOI PSC D XTRNL FITTING 55445 [facility] SPECTACLE 6 EYE RADHA S XCPT INSTITUTE APHAKIA MONOFOCAL OPHTH 09494 [facility] OnAir3[facility]ICAL 6 EYE RADHA XM&EVAL INSTITUTE COMPRE NEW PT 1/> VST FRAMES V2020 [facility] PURCHASES 6 EYE RADHA INSTITUTE 1 VISN V2103 [facility] VEERAMACH PLANO 6 EYE ANENI RAD TO+/-4.00 INSTITUTE D SPHER 0.12-2.00 D CYL EA GONADOTRO [address] [facility] CHORIONIC QUALITATI VE RADIOLOGI 77590 [facility] [place] RANDI C EXAM 6 RADIOLOGY RUFINO CHEST 2 VIEWS FRONTAL&L ATERAL IADNA 73499 [facility] CHLAMYDIA 5 CLINIC CLINIC LABORATO LABORATO TRACHOMAT IS AMPLIFIED PROBE TQ IADNA 48729 [facility] NEISSERIA 5 CLINIC CLINIC LABORATO LABORATO GONORRHOE AE AMPLIFIED PROBE TQ IAADIADOO 94515 [facility] [address] STREPTOCO MEDICAL CCUS GROUP GROUP A IADNA 08421 DHS/CO JESSAMINE NEISSERIA 5 HEALTH CO HEALTH GONORRHOE DEPARTME AE AMPLIFIED PROBE TQ IADNA 02952 [facility]/CO JESSAMINE CHLAMYDIA 5 HEALTH CO HEALTH TRACHOMAT DEPARTME IS AMPLIFIED PROBE TQ CONTRACEP A4267 DHS/CO JESSAMINE TIVE 5 HEALTH CO SUPPLY HEALTH CONDOM DEPARTME MALE EACH INJECTION J1050 DHS/CO JESSAMINE 5 HEALTH CO MEDROXYPR HEALTH OGESTERON DEPARTME E ACETATE 1 MG URINE 61025 DHS/CO JESSAMINE 5 HEALTH CO TEST HEALTH VISUAL DEPARTME COLOR CMPRSN METHS IAADIADOO 36067 [facility] [address]REPT[address]O CARE CCUS GROUP A URINE 65828 [facility] TEST TH DEPT HLTH DEPT VISUAL JUAN JUAN COLOR CMPRSN METHS IADNA 34734 [facility] HLTH DEPT HLTH DEPT GONORRHOE JUAN JUAN AE AMPLIFIED PROBE TQ CONTRACEP A4267 [facility] TIVE [facility] SUPPLY [facility] DEPT HL DEPT CONDOM JUAN JUAN MALE EACH INJECTION J1050 [facility] MEDROXYPR [facility] DEPT [facility] DEPT OGESTERON JUAN JUAN E ACETATE 1 MG IADNA 65978 [facility] CHLAM[facility] 4 [facility] DISTRICT TH DEPT TH DEPT TRACHOMAT JUAN JUAN IS AMPLIFIED PROBE TQ URINE 43602 [facility] LAB NAREN 4 PHYSICIAN JOVAN TEST S GROUP HOLDINGS VISUAL COLOR CMPRSN METHS IAADIADOO 68412 [facility] 4 PHYSICIAN PHYSICIAN STREPTOCO S GROUP S GROUP CCUS GROUP A THERAPEUT 42333 D[facility] IC 4 [facility] INJECTION INC INC IV PUSH EACH NEW DRUG ECG 87668 DENEEN PU[facility] ROUTINE 4 ECG W/LEAST 12 LDS I&[place] [address] [facility] INFUSION 4 [facility] THERAPY/P INC INC ROPHYLAXI S /DX 1ST TO 1 HR BLOOD 85529 [facility] COUNT 4 [facility] COMPLETE INC INC AUTO&[place] [address] [facility] LIPASE 4 [facility] INC INC ECG 25592 [facility] ROUTINE 4 [facility] ECG INC INC W/LEAST 12 LDS TRCG ONLY W/O I&R URINE 37861 [facility] 4 [facility] TEST INC INC VISUAL COLOR CMPRSN METHS URNLS DIP 05229 [facility] 4 [facility] STICK/TAB INC INC LET REAGENT AUTO MICROSCOP Y COMPREHEN 60919 [facility] SIVE 4 [facility] METABOLIC INC INC PANEL FITTING 53952 [facility] ROJAS SPECTACLE 4 S XCPT APHAKIA MONOFOCAL OPHTH 97215 [facility] MEDICAL 4 XM&EVAL COMPRHNSV ESTAB PT 1/> SPHERE V2100 G[facility] ROJAS SINGLE 4 VISION PLANO +/- 4.00 PER LENS SCRATCH V2760 [facility] ROJAS RESISTANT 4 COATING PER LENS LENS V2784 [facility] CHAU[facility]AN CRYSTAL POLYCARBO 4 STANLEY OR EQUAL ANY INDEX PER LENS FRAMES V2020 [facility] PURCHASES 4 IAADIADOO 61917 [facility] 4 PHYSICIAN PHYSICIAN STREPTOCO S GROUP S GROUP CCUS GROUP A IAADIADOO 85876 LARISSA DIAS YELENA 3 [place] [address] [facility] AMYLASE 3 [facility] INC INC RADEX ABD 50976 D[facility] COMPL 3 [facility] AQT ABD INC INC W/S/E/D VIEWS 1 VIEW CH COMPREHEN 43510 [facility] SIVE 3 [facility] METABOLIC INC INC PANEL BLOOD 75687 [facility] COUNT 3 [facility] COMPLETE INC INC AUTO&[place] [address] D[facility] LIPASE 3 [facility] INC INC URINE 51320 [facility] 3 [facility] TEST INC INC VISUAL COLOR CMPRSN METHS 3D 58372 D[facility] RENDERING 3 [facility] INC INC W/INTERP& POSTPROC DIFF WORK STATION CT SOFT 52352 DEBBY DEBBY TISSUE 3 SUPRIYA SUPRIYA NECK W/O CONTRAST MATERIAL HETEROPHI 99032 [facility] LE 3 PHYSICIAN PHYSICIAN ANTIBODIE S GROUP S GROUP S SCREEN IAADIADOO 69430 LARISSA DIAS YELENA 3 STREPTOCO CCUS GROUP A THERAPEUT 57047 JOHN LOPEZ IC 2 VENTURA VENTURA PROPHYLAC TIC/DX INJECTION SUBQ/IM IAADIADOO 97599 LARISSA URBINACK YELENA 2 STREPTOCO CCUS GROUP A URINE 34703 KETTY KETTY 2 GINNY GINNY TEST VISUAL COLOR CMPRSN METHS URNLS DIP 91825 KETTY KETTY 2 GINNY GINNY STICK/TAB LET RGNT NON-AUTO W/O MICRSCP IADNA 41217 A C KELBY STREPTOCO 1 PEYTON DIAZ MERVIN CCUS PSC GROUP A QUANTIFIC ATION BLOOD 73147 A C PEYTON A COUNT 0 PEYTON DIAZ COMPLETE PSC AUTO&AUTO DIFRNTL WBC IADNA 08790 A C KELBY STREPTOCO 0 PEYTON DIAZ MERVIN CCUS PSC GROUP A QUANTIFIC ATION SCREENING 78992 A C KELBY, TEST 9 PEYTON DIAZ GUNJAN PURE TONE PSC AIR ONLY IAADI 14500 [facility] INFLU[facility]ZA 8 [facility] VIRUS INC INC IAADI 09548 [facility] INFFLUENZ 8 [facility] [place] [address] [facility] STREPTOCO 8 [facility] CCUS INC INC GROUP A Encounters Encounter Start End Date Code Location Performer Type Date [facility] T EMERGENCY 42907 [facility] DEPT 7 7 [facility] VISIT INC HIGH SEVERITY& [facility]REAT [facility] OUTPATIEN INC T OFFICE 75370 [facility] [place] 7 7 PHYSICIAN T VISIT S GROUP 15 MINUTES EMERGENCY 23815 [facility] 7 7 [facility] DEPARTMEN INC T VISIT HIGH/URGE NT SEVERITY [facility]OSP[facility] [facility] OUTPATIEN INC T EMERGENCY 68027 HANSEL MENDEZ DEPT 7 7 PHYSICIAN VISIT S, PLLC HIGH SEVERITY& THREAT FUNCJ OFFICE 06885 [facility] ILA OUTPATIEN 7 7 PHYSICIAN T VISIT S GROUP 25 MINUTES OFFICE 93888 [facility] OUTPATIEN 7 7 [facility] T NEW 10 INC MINUTES [facility]OSPITAL [facility] - 7 7 [facility] OUTPATIEN INC T OFFICE 18570 [facility] VIS[facility] DEPT 10 HEALTH JUAN MINUTES OFFICE 02322 [facility] LYLY OUTPATIEN 7 7 PHYSICIAN T VISIT GROUP 15 MINUTES OFFICE 93425 [facility] OUTPATIEN 7 7 [facility] T VISIT 5 INC MINUTES [facility]OSPITAL [facility] - 7 7 [facility] OUTPATIEN INC T OFFICE 15222 [facility] LYLY OUTPATIEN 7 7 PHYSICIAN T VISIT GROUP 25 MINUTES HOSPITAL [facility] - 7 7 [facility] OUTPATIEN INC T EMERGENCY 11240 [facility] 7 7 [facility] DEPARTMEN INC T VISIT HIGH/URGE NT SEVERITY EMERGENCY 88737 HANSEL GANNON DEPT 7 7 PHYSICIAN U VISIT S, PLLC HIGH SEVERITY& THREAT FUNCJ INITIAL 49032 [facility] ILA PREVENTIV 7 7 PHYSICIAN E S GROUP MEDICINE NEW PT AGE 18-39YRS [facility]PITAL [facility] - 7 7 [facility] OUTPATIEN INC T [facility] - 7 7 [facility] OUTPATIEN INC T EMERGENCY 39085 [facility] 7 7 [facility] DEPARTMEN INC T VISIT LIMITED/M INOR PROB PERIODIC 54375 [facility] E MED EST [facility]/CO HLTH DEPT PATIENT HEALTH JUAN 18-39 YRS OFFICE 63280 [facility] 6 6 [place] [facility] PSC MINUTES OFFICE 14592 [facility] ELLISON OUTPATIEN 6 6 [facility] 15 PSC MINUTES OFFICE 85626 [facility] HDZI OUTPATIEN 6 6 [facility] 15 PSC MINUTES EMERGENCY 13153 [facility] 6 6 [facility] EMERGENCY T VISIT PHYS HIGH/URGE NT SEVERITY [facility] - 6 6 HOSPITAL OUTPATIEN T EMERGENCY 71019 [facility] 6 6 [facility] DEPARTMEN T VISIT MODERATE SEVERITY OFFICE 68055 [facility] T[facility] OUTPATIEN 6 6 HEALTH T VISIT MEDICAL 15 GROUP MINUTES OFFICE 16534 [facility] GARCIA OUTPATIEN 5 5 HEALTH T VISIT MEDICAL 15 GROUP MINUTES OFFICE 29367 [facility] JOLENE OUTPATIEN 5 5 HEALTH T VISIT MEDICAL 15 GROUP MINUTES OFFICE 91603 [facility] OVERBEE OUTPATIEN [address] T VISIT MEDICAL 15 GROUP MINUTES OFFICE 58217 [facility] JESSAMINE OUTPATIEN 5 5 HEALTH CO T NEW 20 HEALTH MINUTES DEPARTDE OFFICE 74932 [facility] OUTPATIEN [address] VISIT CARE 15 MINUTES PERIODIC 99179 [facility] EST HLTH DEPT HLTH DEPT PATIENT JUAN JUAN 12-17YRS OFFICE 46705 [facility] OUTPATIEN 4 4 PHYSICIAN T VISIT S GROUP 15 MINUTES EMERGENCY 77686 [facility] 4 4 [facility] DEPARTMEN INC T VISIT HIGH/URGE NT SEVERITY EMERGENCY 54388 DENEEN PUGH DEPT 4 4 VISIT HIGH SEVERITY& THREAT [facility] DIRK - 4 4 [facility] T OFFICE 26467 KILPELA KILPELA OUTPATIEN 4 4 JEOfe JEA T VISIT 15 MINUTES OFFICE 21738 [facility] OUTPATIEN 4 4 PHYSICIAN T VISIT S GROUP 10 MINUTES PERIODIC 95078 FIELD AMB FIELD AMB PREVENTIV 4 4 E MED EST PATIENT 12-17 OFFICE 35273 [facility] OUTPATIEN 4 4 PHYSICIAN T VISIT S GROUP 15 MINUTES OFFICE 41169 H OUTPATIEN 4 4 PHYSICIAN T VISIT S GROUP 15 MINUTES OFFICE 40938 H OUTPATIEN 4 4 PHYSICIAN T VISIT S GROUP 15 MINUTES OFFICE 68801 JOSE SCOT JOSE SCOT OUTPATIEN 4 4 T VISIT 15 MINUTES OFFICE 03001 [facility] OUTPATIEN 4 4 PHYSICIAN T VISIT S GROUP 15 MINUTES OFFICE 18845 [facility] OUTPATIEN [address] T VISIT 15 MINUTES [facility] [place] [address] [facility] OUTPATIEN T EMERGENCY 19665 [place] [address] 3 [facility] DEPARTMEN T VISIT MODERATE SEVERITY OFFICE 84752 RESTORATIONGuido MYLES OUTPATIEN 3 3 EXPRESS ARTHUR T VISIT CARE 15 MINUTES OFFICE 77950 LARISSA KIRK OUTPATIEN 3 3 T VISIT 15 MINUTES OFFICE 85169 LARISSA DIAS YELENA OUTPATIEN 3 3 T VISIT 15 MINUTES OFFICE 99456 [facility] OUTPATIEN 3 3 PHYSICIAN T VISIT S GROUP 15 MINUTES HOSPITAL D[facility]K - 3 3 [facility] OUTPATIEN INC T OFFICE 44744 [facility] OUTPATIEN 3 3 PHYSICIAN T VISIT S GROUP 15 MINUTES OFFICE 79659 [facility] OUTPATIEN 3 3 PHYSICIAN T VISIT S GROUP 15 MINUTES OFFICE 67843 KETTY KETTY OUTPATIEN 3 3 GINNY GINNY T VISIT 10 MINUTES EMERGENCY 53963 [facility] 3 3 [facility]PART[facility] T VISIT MODERATE SEVERITY [facility] - 3 3 [facility] OUTPAT[facility] INC T EMERGENCY 35362 MICHELLE CHATMAN LIZBETH DEPT 3 3 EMERGENCY VISIT SERVICES HIGH SEVERITY& THREAT FUNCJ OFFICE 79819 [facility] OUTPATIEN 3 3 PHYSICIAN T VISIT S GROUP 15 MINUTES OFFICE 29526 KILPELA KILPELA OUTPATIEN 3 3 ZAC JEA T VISIT 15 MINUTES OFFICE 38680 [facility] CAVAZOS OUTPATIEN 3 3 [facility] T VISIT [facility] MINUT[facility] HEAL HEAL OFFICE 80202 [facility] OUTPATIEN 3 3 PHYSICIAN T VISIT S GROUP 15 MINUTES OFFICE 07068 LARISSA KIRK OUTPATIEN 3 3 T VISIT 15 MINUTES OFFICE 70976 [facility] CAVAZOS OUTPATIEN 2 2 [facility] 10 HEAL HEAL MINUTES OFFICE 51749 JOHN LOPEZ OUTPATIEN 2 2 VENTURA VENTURA T VISIT 15 MINUTES OFFICE 03277 LAIRSSA KIRK OUTPATIEN 2 2 T VISIT 15 MINUTES OFFICE 91693 [facility] CAVAZOS OUTPATIEN 2 2 [facility] 10 HEAL HEAL MINUTES OFFICE 31560 KELBY LAMA OUTPATIEN 2 2 MERVIN MERVIN T VISIT 15 MINUTES OFFICE 45854 [facility] CAVAZOS OUTPATIEN 2 2 CO [facility] 15 MINUTES OFFICE 43271 [facility] CAVAZOS OUTPATIEN 2 2 [facility] 10 MINUTES OFFICE 49736 KETTY KETTY OUTPATIEN 2 2 GINNY GINNY T VISIT 15 MINUTES OFFICE 86651 [facility] DIRK OUTPATIEN 2 2 [facility] 10 MINUTES OFFICE 15547 [facility]K DIRK OUTPATIEN 2 2 [facility] 10 MINUTES OFFICE 02050 PAPPAS PAPPAS OUTPATIEN 2 2 JOSEPH JOSEPH T VISIT 10 MINUTES OFFICE 90323 KETTY KETTY OUTPATIEN 2 2 GINNY GINNY T VISIT 10 MINUTES OFFICE 76691 GABRIELA GABRIELA OUTPATIEN 2 2 ROCIO ROCIO T VISIT 10 MINUTES OFFICE 59256 [facility] DIRK OUTPATIEN 2 2 [facility] 10 MINUTES OFFICE 10697 [facility] DIRK OUTPATIEN 2 2 [facility] 15 MINUTES OFFICE 18066 KELBY KELBY OUTPATIEN 1 1 MERVIN MERVIN T VISIT 15 MINUTES OFFICE 21474 [facility] DIRK OUTPATIEN 1 1 [facility] 10 MINUTES OFFICE 18025 [facility] D[facility]K OUTPATIEN 1 1 [facility] 10 MINUTES OFFICE 74403 TOBIAS COLLADO OUTPATIEN 1 1 CHR CHR T NEW 30 MINUTES OFFICE 82500 [facility] DIRK OUTPATIEN 1 1 CO [facility] MIDDLE T VISIT 5 [facility] MINUTES OFFICE 46419 [facility] DIRK OUTPATIEN 1 1 [facility] 10 MINUTES OFFICE 16436 Ofe ELLISON OUTPATIEN 1 1 PEYTON MD T VISIT PSC 15 MINUTES OFFICE 32514 [facility] DIRK OUTPATIEN 1 1 [facility] 10 MINUTES OFFICE 83558 [facility]K DIRK OUTPATIEN 1 1 [facility] 10 MINUTES OFFICE 27792 D[facility]K DIRK OUTPATIEN 1 1 [facility] 10 MINUTES OFFICE 96457 A C KELBY OUTPATIEN 1 1 PEYTON DIAZ MERVIN T VISIT PSC 15 MINUTES OFFICE 69961 [facility]IRK DIRK OUTPATIEN 1 1 [facility] 10 MINUTES OFFICE 81432 A C KELBY OUTPATIEN 1 1 PEYTON DIAZ MERVIN T VISIT PSC 15 MINUTES OFFICE 29469 DIRK DIRK OUTPATIEN 1 1 [facility] 10 MINUTES OFFICE 10843 DIRK DIRK OUTPATIEN 1 1 [facility] 10 MINUTES OFFICE 62963 DIRK DIRK OUTPATIEN 1 1 [facility] 10 MINUTES OFFICE 44501 D[facility]K DIRK OUTPATIEN 1 1 [facility] 10 MINUTES OFFICE 62946 [facility]K DIRK OUTPATIEN 1 1 [facility] 15 MINUTES OFFICE 85329 [facility]K ANNON OUTPATIEN 0 0 [facility] 15 MINUTES OFFICE 67720 D[facility]K ANNON OUTPATIEN 0 0 [facility] 10 MINUTES OFFICE 54316 A C KELBY OUTPATIEN 0 0 PEYTON DIAZ MERVIN T VISIT PSC 15 MINUTES OFFICE 60754 A C KELBY OUTPATIEN 0 0 PEYTON DIAZ MERVIN T VISIT PSC 15 MINUTES OFFICE 74590 A C KELBY OUTPATIEN 0 0 PEYTON DIAZ MERVIN T VISIT PSC 15 MINUTES OFFICE 81221 [facility]K DIRK OUTPATIEN 0 0 [facility] 15 MINUTES OFFICE 55266 A Eloise LAMA OUTPATIEN 0 0 PEYTON JEFFRIES T VISIT PSC 15 MINUTES OFFICE 43254 A Eloise LAMA OUTPATIEN 0 0 PE[facility] HOLLINS T VISIT PSC 15 MINUTES OFFICE 78683 A Eloise LAMA OUTPATIEN 0 0 [place] HOLLINS T VISIT PSC 15 MINUTES OFFICE 48467 [facility] D[facility]K OUTPATIEN 9 9 HEALTH CO HEALTH T VISIT [facility] 10 BANK ACCT MINUTES PERIODIC 91274 Ofe LAMA, PREVENTIV 9 9 PEYTON HOLLINS E MED EST PSC PATIENT 5-11YRS OFFICE 91812 CATRACHITO RODRIGUEZ 9 9 [place] HOLLINS T NEW 30 PSC MINUTES EMERGENCY 67943 [facility] 8 8 [facility] DEPARTMEN INC T VISIT MODERATE SEVERITY EMERGENCY 16470 [facility] ROGERS, 8 8 [facility] T VISIT PROF SERV LOW/MODER SEVERITY [facility]OSPITAL D[facility]K - 8 8 [facility] OUTPATIEN INC T
--- OUTSIDE RECORDS SUMMARY | 2017-05-19 06:22 | External Medical Summary Rpt | CCD ---
Demographics Preferred Language Azerbaijani Marital Status Unknown Roman Catholic Affiliation Unknown Race Unknown Ethnic Group Unknown Author Author , MATT GUTIERREZ Address Unknown Phone Immunization Unable to retrieve immunization data due to connection failure with Immunization Registry. Please try again later.
--- OUTSIDE RECORDS SUMMARY | 2017-05-19 06:22 | External Medical Summary Rpt | CCD ---
Demographics Preferred Language [place] Konger Marital Status Unknown Christian Affiliation Unknown Race Unknown Ethnic Group Unknown Author Author , MATT GUTIERREZ Address Unknown Phone Immunization Unable to retrieve immunization data due to connection failure with Immunization Registry. Please try again later.
--- OUTSIDE RECORDS SUMMARY | 2017-05-19 06:24 | External Medical Summary Rpt ---
Author Author [employer], [employer] Organization [employer] Address Unknown Phone Unavailable Results Comprehensive metabolic 2000 panel in Serum or Plasma Observa Value Referen Units Interpr Notes Date tion ce etation Range Albumin/G 1.1 - 1.8 No Low No Oct 3 lobulin informati informati 2017 5:45 [Mass on in on in AM ratio] in source source Serum or data data Plasma Albumin 3.4 - 5.0 gm/dL Normal No Oct 3 [Mass/vol informati 2017 5:45 ume] in on in AM Serum or source Plasma data Alkaline 46 - 116 U/L Normal No Oct 3 phosphata informati 2017 5:45 se on in AM [Enzymati source c data activity/ volume] in Serum or Plasma Bilirubin 0.2 - 1.0 mg/dL Normal No Oct 3 .total informati 2017 5:45 [Mass/vol on in AM ume] in source Serum or data Plasma Urea 7 - 18 mg/dL Normal No Oct 3 nitrogen informati 2017 5:45 [Mass/vol on in AM ume] in source Serum or data Plasma Calcium 8.5 - mg/dL Normal No Oct 3 [Mass/vol 10.1 informati 2017 5:45 ume] in on in AM Serum or source Plasma data Chloride 98 - 107 mmoL/L Normal No Oct 3 [Moles/vo informati 2017 5:45 lume] in on in AM Serum or source Plasma data Carbon 21.0 - mmoL/L Normal No Oct 3 dioxide, 32.0 informati 2017 5:45 total on in AM [Moles/vo source lume] in data Serum or Plasma Creatinin 0.55 - mg/dL Normal No Oct 3 e 1.02 informati 2017 5:45 [Mass/vol on in AM ume] in source Serum or data Plasma Creatinin 50 - 200 ML/MIN Normal No Oct 3 e renal informati 2017 5:45 clearance on in AM source predicted data by Cockcroft -Gault formula Estimated 59- ML/MIN No REFERENCE Oct 3 informati RANGE: 2016 5:45 glomerula on in >60 AM r source ML/MIN/1. filtratio data 73 SQUARE n rate METERSIf (GF this patient is -A merican, then multiply theresult by 1.210. Globulin 1.3 - 3.2 gm/dL High No May 3 [Mass/vol informati 2016 5:45 ume] in on in AM Serum source data Glucose 74 - 106 mg/dL High No May 3 [Mass/vol informati 2016 5:45 ume] in on in AM Serum or source Plasma data Potassium 3.5 - 5.1 mmoL/L Normal No May 3 informati 2016 5:45 [Moles/vo on in AM lume] in source Serum or data Plasma Sodium 136 - 145 mmoL/L Normal No May 3 [Moles/vo informati 2016 5:45 lume] in on in AM Serum or source Plasma data Aspartate 15 - 37 U/L Low No May 3 inform2016 5:45 aminotran on in AM sferase source [Enzymati data c activity/ volume] in Serum or Plasma Alanine 12 - 78 U/L Normal No May 3 aminotran informati 2016 5:45 sferase on in AM [Enzymati source c data activity/ volume] in Serum or Plasma Protein 6.4 - 8.2 gm/dL Normal No May 3 [Mass/vol informati 2016 5:45 ume] in on in AM Serum or source Plasma data CBC W Auto Differential panel in Blood Observa Value Referen Units Interpr Notes Date tion ce etation Range Granulocy 1.8 - 7.8 K/mm3 Normal No May 3 malinda informati 2016 5:45 [#/volume on in AM ] in source Blood by data Automated count Granulocy 37.0 - % Normal No May 3 malinda/100 80.0 informati 2016 5:45 leukocyte on in AM s in source Blood by data Automated count Hematocri 37.0 - % Low No May 3 t [Volume 47.0 informati 2016 5:45 on in AM Fraction] source of Blood data Hemoglobi 12.2 - g/dL Low No May 3 n 16.2 informati 2016 5:45 [Mass/vol on in AM ume] in source Blood data Lymphocyt 0.7 - 4.5 K/mm3 Normal No May 3 es informati 2016 5:45 [#/volume on in AM ] in source Unspecifi data ed specimen by Automated count Lymphocyt 10 - 50.0 % Normal No May 10 es informati 2016 5:45 [#/volume on in AM ] in source Unspecifi data ed specimen by Automated count Erythrocy 27 - 31.2 pg Normal No May 10 te mean inform2016 5:45 corpuscul on in AM ar source hemoglobi data n [Entitic mass] Erythrocy 31.8 - g/dl Normal No May 10 te mean 35.4 informati 2016 5:45 corpuscul on in AM ar source hemoglobi data n concentra tion [Mass/vol ume] by Automated count Erythrocy 82.2 - fl Normal No May 10 te mean 97.8 informati 2016 5:45 corpuscul on in AM ar volume source [Entitic data volume] by Automated count Monocytes 0.1 - 1.0 K/mm3 Normal No May 10 informati 2016 5:45 [#/volume on in AM ] in source Blood by data Automated count Monocytes 1.7 - 9.3 % Normal No May 10 /100 informati 2016 5:45 leukocyte on in AM s in source Blood by data Automated count Platelets 142 - 424 K/mm3 Normal No May 10 informati 2016 5:45 [#/volume on in AM ] in source Blood data Erythrocy 4.2 - 5.4 M/mm3 Low No May 10 malinda informati 2016 5:45 [#/volume on in AM ] in source Amniotic data fluid Erythrocy 11.5 - % Normal No May 10 te 17.5 informati 2016 5:45 distribut on in AM ion width source [Entitic data volume] by Automated count Leukocyte 4.5 - K/MM3 Normal No May 10 s 13.0 informati 2016 5:45 [#/volume on in AM ] in source Blood data Urinalysis dipstick W Reflex Microscopic panel in Urine Observa Value Referen Units Interpr Notes Date tion ce etation Range Appeara CLEAR CLEAR No No No May 10 nce of informa informa informa 2016 Urine tion in tion in tion in 5:20 AM source source source data data data Bacteri 2+ O No No No May 10 a informa informa informa 2016 [Presen tion in tion in tion in 5:20 AM ce] in source source source Urine data data data sedimen t by Light microsc opy Bilirub NEGATIV NEG No No No May 10 in E informa informa informa 2016 [Presen tion in tion in tion in 5:20 AM ce] in source source source Urine data data data by Test strip Erythro 1+ NEG No Abnorma No May 3 cytes informa l informa 2016 [Presen tion in tion in 5:20 AM ce] in source source Urine data data Color YELLOW YELLOW No No No May 10 of informa informa informa 2017 Urine tion in tion in tion in 5:20 AM source source source data data data Glucose NEG No No No May 3 [Mass/vol informati informati informati 2016 5:20 ume] in on in on in on in AM Urine by source source source Test data data data strip Ketones NEGATIV NEG mg/dL No No May 10 E informa informa 2016 [Presen tion in tion in 5:20 AM ce] in source source Urine data data by Automat ed test strip Mucus NEGATIV NEG No No No May 10 [Presen E informa informa informa 2016 ce] in tion in tion in tion in 5:20 AM Urine source source source sedimen data data data t by Light microsc opy Mucus 1+ OCC No No No May 10 [Presen informa informa informa 2016 ce] in tion in tion in tion in 5:20 AM Urine source source source sedimen data data data t by Light microsc opy Nitrite NEGATIV NEG No No No May 10 E informa informa informa 2016 [Presen tion in tion in tion in 5:20 AM ce] in source source source Urine data data data by Test strip pH of 5.0 - 8.5 No Normal No Oct 3 Urine informati informati 2017 5:20 on in on in AM source source data data Protein NEG mg/dL No No May 3 [Mass/vol informati informati 2016 5:20 ume] in on in on in AM Urine by source source Automated data data test strip Erythro 3-5 0 rbc/hpf No No Oct 3 cytes informa informa 2016 [Presen tion in tion in 5:20 AM ce] in source source Urine data data sedimen t by Light microsc opy Specific 1.005 - No Normal No May 10 gravity 1.030 informati informati 2017 5:20 of Urine on in on in AM source source data data Epithel 5-10 0 - 5 #/hpf No No May 10 ial informa informa 2016 cells.s tion in tion in 5:20 AM quamous source source data data [Presen ce] in Urine sedimen t by Microsc opy high power field Urobili 0.2 NEG E.U./dL No No May 10 nogen informa informa 2016 [Presen tion in tion in 5:20 AM ce] in source source Urine data data by Test strip Leukocy [3 O wbc/hpf No No May 10 malinda wbc/hpf informa informa 2016 [#/volu ; 5 tion in tion in 5:20 AM me] in wbc/hpf source source Urine ] data data Urinalysis dipstick W Reflex Microscopic panel in Urine Observa Value Referen Units Interpr Notes Date tion ce etation Range Appeara CLEAR CLEAR No No No May 10 nce of informa informa informa 2016 Urine tion in tion in tion in 5:20 AM source source source data data data Bilirub NEGATIV NEG No No No May 10 in E informa informa informa 2016 [Presen tion in tion in tion in 5:20 AM ce] in source source source Urine data data data by Test strip Erythro 1+ NEG No Abnorma No May 10 cytes informa l informa 2016 [Presen tion in tion in 5:20 AM ce] in source source Urine data data Color YELLOW YELLOW No No No May 10 of informa informa informa 2016 Urine tion in tion in tion in 5:20 AM source source source data data data Glucose NEG No No No May 10 [Mass/vol informati informati informati 2016 5:20 ume] in on in on in on in AM Urine by source source source Test data data data strip Ketones NEGATIV NEG mg/dL No No May 10 E informa informa 2016 [Presen tion in tion in 5:20 AM ce] in source source Urine data data by Automat ed test strip Mucus NEGATIV NEG No No No May 10 [Presen E informa informa informa 2016 ce] in tion in tion in tion in 5:20 AM Urine source source source sedimen data data data t by Light microsc opy Nitrite NEGATIV NEG No No No May 3 E informa informa informa 2016 [Presen tion in tion in tion in 5:20 AM ce] in source source source Urine data data data by Test strip pH of 5.0 - 8.5 No Normal No Oct 3 Urine informati informati 2016 5:20 on in on in AM source source data data Protein NEG mg/dL No No Oct 3 [Mass/vol informati informati 2016 5:20 ume] in on in on in AM Urine by source source Automated data data test strip Specific 1.005 - No Normal No May 3 gravity 1.030 informati informati 2016 5:20 of Urine on in on in AM source source data data Urobili 0.2 NEG E.U./dL No No May 3 nogen informa informa 2016 [Presen tion in tion in 5:20 AM ce] in source source Urine data data by Test strip Choriogonadotropin.beta subunit [Units] in 24 hour Urine Observa Value Referen Units Interpr Notes Date tion ce etation Range Choriogon NEG No No No May 3 adotropin informati informati informati 2016 5:20 .beta on in on in on in AM subunit source source source [Units] data data data in 24 hour Urine Drugs identified in Urine by Screen method Observa Value Referen Units Interpr Notes Date tion ce etation Range Positive urine drug screen samples are stored for 7 days. Contact the Lab if confirmation of positives is needed. Ampheta NEGATIV <1000 ng/mL No No Sep 14 mine E informa informa 2016 [Presen tion in tion in 1:30 PM ce] in source source Urine data data by Screen method Barbitura <200 ng/mL No No Sep 14 malinda informati informati 2017 1:30 [Mass/vol on in on in PM ume] in source source Urine by data data Screen method Benzodiaz 200 ng/mL ng/mL No No Sep 14 epines informati informati 2017 1:30 [Mass/vol on in on in PM ume] in source source Serum or data data Plasma by Screen method Cocaine <300 ng/g No No Sep 14 [Mass/vol informati informati 2017 1:30 ume] in on in on in PM Unspecifi source source ed data data specimen Methadone <300 ng/mL No No Sep 14 informati informati 2017 1:30 [Mass/vol on in on in PM ume] in source source Unspecifi data data ed specimen Opiates <300 ng/mL No No Sep 14 [Mass/vol informati informati 2017 1:30 ume] in on in on in PM Unspecifi source source ed data data specimen Phencycli <25 ng/mL No No Sep 14 dine informati informati 2017 1:30 [Mass/vol on in on in PM ume] in source source Unspecifi data data ed specimen 11-Hydr POSITIV <50 ng/mL Abnorma This is Apr 21 oxy E l an 2017 delta-9 UNCONFI 1:30 PM RMED tetrahy result. drocann This abinol result [Presen is for ce] in medical Unspeci purpose fied s specime and/or n treatme nt only. Basic metabolic panel in Blood Observa Value Referen Units Interpr Notes Date tion ce etation Range COMMENTS TO ATTENDANCE OFFICER: PREOP ORDER Urea 7 - 18 mg/dL No No Apr 07 nitrogen informati informati 2016 6:30 [Mass/vol on in on in AM ume] in source source Serum or data data Plasma Calcium 8.5 - mg/dL Normal No Apr 07 [Mass/vol 10.1 informati 2017 6:30 ume] in on in AM Serum or source Plasma data Chloride 98 - 107 mmoL/L Normal No Apr 07 [Moles/vo informati 2017 6:30 lume] in on in AM Serum or source Plasma data Carbon 21.0 - mmoL/L Normal No Apr 07 dioxide, 32.0 informati 2017 6:30 total on in AM [Moles/vo source lume] in data Serum or Plasma Creatinin 0.55 - mg/dL No No Apr 07 e 1.02 informati informati 2017 6:30 [Mass/vol on in on in AM ume] in source source Serum or data data Plasma Estimated 59- ML/MIN No REFERENCE Apr 07 informati RANGE: 2017 6:30 glomerula on in >60 AM r source ML/MIN/1. filtratio data 73 SQUARE n rate METERSIf (GF this patient is -A merican, then multiply theresult by 1.210. Glucose 74 - 106 mg/dL Normal No Apr 07 [Mass/vol informati 2017 6:30 ume] in on in AM Serum or source Plasma data Potassium 3.5 - 5.1 mmoL/L Normal No Apr 07 informati 2016 6:30 [Moles/vo on in AM lume] in source Serum or data Plasma Sodium 136 - 145 mmoL/L Normal No Apr 07 [Moles/vo informati 2016 6:30 lume] in on in AM Serum or source Plasma data CBC W Auto Differential panel in Blood Observa Value Referen Units Interpr Notes Date tion ce etation Range COMMENTS TO ATTENDANCE OFFICER: PREOP ORDER Basophils 0 - 0.2 K/MM3 Normal No Apr 07 informati 2016 6:30 [#/volume on in AM ] in source Blood by data Automated count Basophils 0.1 - 2.0 % Normal No Apr 07 informati 2017 6:30 leukocyte on in AM s in source Blood by data Automated count Eosinophi 0.0 - 0.4 K/mm3 Normal No Apr 07 ls informati 2016 6:30 [#/volume on in AM ] in source Blood by data Automated count Eosinophi 0.1 - % Normal No Apr 07 ls/100 12.0 informati 2017 6:30 leukocyte on in AM s in source Blood by data Automated count Granulocy 1.8 - 7.8 K/mm3 Normal No Apr 07 malinda informati 2016 6:30 [#/volume on in AM ] in source Blood by data Automated count Granulocy 37.0 - % Normal No Apr 07 malinda/100 80.0 informati 2016 6:30 leukocyte on in AM s in source Blood by data Automated count Hematocri 37.0 - % Low No Apr 07 t [Volume 47.0 informati 2016 6:30 on in AM Fraction] source of Blood data Hemoglobi 12.2 - g/dL Low No Apr 07 n 16.2 informati 2016 6:30 [Mass/vol on in AM ume] in source Blood data Lymphocyt 0.7 - 4.5 K/mm3 Normal No Apr 07 es informati 2016 6:30 [#/volume on in AM ] in source Unspecifi data ed specimen by Automated count Lymphocyt 10 - 50.0 % Normal No Apr 07 es informati 2016 6:30 [#/volume on in AM ] in source Unspecifi data ed specimen by Automated count Erythrocy 27 - 31.2 pg Normal No Apr 07 te mean informati 2016 6:30 corpuscul on in AM ar source hemoglobi data n [Entitic mass] Erythrocy 31.8 - g/dl Normal No Apr 07 te mean 35.4 informati 2016 6:30 corpuscul on in AM ar source hemoglobi data n concentra tion [Mass/vol ume] by Automated count Erythrocy 82.2 - fl Normal No Apr 07 te mean 97.8 informati 2016 6:30 corpuscul on in AM ar volume source [Entitic data volume] by Automated count Monocytes 0.1 - 1.0 K/mm3 Normal No Apr 07 informati 2016 6:30 [#/volume on in AM ] in source Blood by data Automated count Monocytes 1.7 - 9.3 % Normal No Apr 07 informati 2016 6:30 leukocyte on in AM s in source Blood by data Automated count Platelet 7.4 - fl Normal No Apr 07 mean 10.4 informati 2016 6:30 volume on in AM [Entitic source volume] data in Blood by Automated count Platelets 142 - 424 K/mm3 No No Apr 07 informati informati 2016 6:30 [#/volume on in on in AM ] in source source Blood data data Erythrocy 4.2 - 5.4 M/mm3 Low No Apr 07 malinda informati 2016 6:30 [#/volume on in AM ] in source Amniotic data fluid Erythrocy 11.5 - % Normal No Apr 07 te 17.5 informati 2016 6:30 distribut on in AM ion width source [Entitic data volume] by Automated count Leukocyte 4.5 - K/MM3 Normal No Apr 07 s 13.0 informati 2016 6:30 [#/volume on in AM ] in source Blood data CBC W Auto Differential panel in Blood Observa Value Referen Units Interpr Notes Date tion ce etation Range Basophils 0 - 0.2 K/MM3 Normal No Apr 05 informati 2016 6:30 [#/volume on in AM ] in source Blood by data Automated count Basophils 0.1 - 2.0 % Normal No Apr 05 informati 2016 6:30 leukocyte on in AM s in source Blood by data Automated count Eosinophi 0.0 - 0.4 K/mm3 Normal No Apr 05 ls informati 2016 6:30 [#/volume on in AM ] in source Blood by data Automated count Eosinophi 0.1 - % Normal No Apr 05 ls/100 12.0 informati 2017 6:30 leukocyte on in AM s in source Blood by data Automated count Granulocy 1.8 - 7.8 K/mm3 Normal No Apr 05 malinda informati 2016 6:30 [#/volume on in AM ] in source Blood by data Automated count Granulocy 37.0 - % Normal No Apr 05 malinda/100 80.0 informati 2017 6:30 leukocyte on in AM s in source Blood by data Automated count Hematocri 37.0 - % Low No Apr 05 t [Volume 47.0 informati 2016 6:30 on in AM Fraction] source of Blood data Hemoglobi 12.2 - g/dL Low No Apr 05 n 16.2 informati 2017 6:30 [Mass/vol on in AM ume] in source Blood data Lymphocyt 0.7 - 4.5 K/mm3 Normal No Apr 05 es informati 2017 6:30 [#/volume on in AM ] in source Unspecifi data ed specimen by Automated count Lymphocyt 10 - 50.0 % Normal No Apr 05 es informati 2016 6:30 [#/volume on in AM ] in source Unspecifi data ed specimen by Automated count Erythrocy 27 - 31.2 pg Normal No Apr 05 te mean informati 2017 6:30 corpuscul on in AM ar source hemoglobi data n [Entitic mass] Erythrocy 31.8 - g/dl Normal No Apr 05 te mean 35.4 informati 2017 6:30 corpuscul on in AM ar source hemoglobi data n concentra tion [Mass/vol ume] by Automated count Erythrocy 82.2 - fl Normal No Apr 05 te mean 97.8 informati 2016 6:30 corpuscul on in AM ar volume source [Entitic data volume] by Automated count Monocytes 0.1 - 1.0 K/mm3 Normal No Apr 05 informati 2017 6:30 [#/volume on in AM ] in source Blood by data Automated count Monocytes 1.7 - 9.3 % High No Apr 05 / informati 2017 6:30 leukocyte on in AM s in source Blood by data Automated count Platelet 7.4 - fl Normal No Apr 05 mean 10.4 informati 2016 6:30 volume on in AM [Entitic source volume] data in Blood by Automated count Platelets 142 - 424 K/mm3 Normal No Apr 05 informati 2016 6:30 [#/volume on in AM ] in source Blood data Erythrocy 4.2 - 5.4 M/mm3 Low No Apr 05 malinda informati 2016 6:30 [#/volume on in AM ] in source Amniotic data fluid Erythrocy 11.5 - % Normal No Apr 05 te 17.5 informati 2017 6:30 distribut on in AM ion width source [Entitic data volume] by Automated count Leukocyte 4.5 - K/MM3 No No Apr 05 s 13.0 informati informati 2017 6:30 [#/volume on in on in AM ] in source source Blood data data Basic metabolic panel in Blood Observa Value Referen Units Interpr Notes Date tion ce etation Range Urea 7 - 18 mg/dL Low No Apr 05 nitrogen informati 2016 6:30 [Mass/vol on in AM ume] in source Serum or data Plasma Calcium 8.5 - mg/dL Low No Apr 05 [Mass/vol 10.1 informati 2016 6:30 ume] in on in AM Serum or source Plasma data Chloride 98 - 107 mmoL/L Normal No Apr 05 [Moles/vo informati 2016 6:30 lume] in on in AM Serum or source Plasma data Carbon 21.0 - mmoL/L Normal No Apr 05 dioxide, 32.0 informati 2017 6:30 total on in AM [Moles/vo source lume] in data Serum or Plasma Creatinin 0.55 - mg/dL Low No Apr 05 e 1.02 informati 2016 6:30 [Mass/vol on in AM ume] in source Serum or data Plasma Creatinin 50 - 200 ML/MIN High No Apr 05 e renal informati 2017 6:30 clearance on in AM source predicted data by Cockcroft -Gault formula Estimated 59- ML/MIN No REFERENCE Apr 05 informati RANGE: 2017 6:30 glomerula on in >60 AM r source ML/MIN/1. filtratio data 73 SQUARE n rate METERSIf (GF this patient is -A merican, then multiply theresult by 1.210. Glucose 74 - 106 mg/dL Normal No Apr 05 [Mass/vol informati 2016 6:30 ume] in on in AM Serum or source Plasma data Potassium 3.5 - 5.1 mmoL/L Normal No Apr 05 informati 2017 6:30 [Moles/vo on in AM lume] in source Serum or data Plasma Sodium 136 - 145 mmoL/L Normal No Apr 05 [Moles/vo informati 2016 6:30 lume] in on in AM Serum or source Plasma data Gentamicin [Mass/volume] in Serum or Plasma --trough Observa Value Referen Units Interpr Notes Date tion ce etation Range Gentamici 0 - 2.0 ug/ml Normal No Apr 04 n informati 2016 [Mass/vol on in 11:10 PM ume] in source Serum or data Plasma --trough Amylase [Enzymatic activity/volume] in Serum or Plasma Observa Value Referen Units Interpr Notes Date tion ce etation Range Amylase 25 - 115 U/L Normal No Apr 04 [Enzymati informati 2016 7:20 c on in AM activity/ source volume] data in Serum or Plasma Lipase [Enzymatic activity/volume] in Serum or Plasma Observa Value Referen Units Interpr Notes Date tion ce etation Range Lipase 73 - 393 U/L Normal No Apr 04 [Enzymati informati 2017 7:20 c on in AM activity/ source volume] data in Serum or Plasma Comprehensive metabolic 2000 panel in Serum or Plasma Observa Value Referen Units Interpr Notes Date tion ce etation Range Albumin/G 1.1 - 1.8 No Low No Apr 04 lobulin informati informati 2017 7:20 [Mass on in on in AM ratio] in source source Serum or data data Plasma Albumin 3.4 - 5.0 gm/dL Normal No Apr 04 [Mass/vol informati 2017 7:20 ume] in on in AM Serum or source Plasma data Alkaline 46 - 116 U/L Normal No Apr 04 phosphata informati 2017 7:20 se on in AM [Enzymati source c data activity/ volume] in Serum or Plasma Bilirubin 0.2 - 1.0 mg/dL Normal No Apr 04 .total informati 2017 7:20 [Mass/vol on in AM ume] in source Serum or data Plasma Urea 7 - 18 mg/dL Low No Apr 04 nitrogen informati 2017 7:20 [Mass/vol on in AM ume] in source Serum or data Plasma Calcium 8.5 - mg/dL Normal No Apr 04 [Mass/vol 10.1 informati 2017 7:20 ume] in on in AM Serum or source Plasma data Chloride 98 - 107 mmoL/L Normal No Apr 04 [Moles/vo informati 2016 7:20 lume] in on in AM Serum or source Plasma data Carbon 21.0 - mmoL/L Normal No Apr 04 dioxide, 32.0 informati 2016 7:20 total on in AM [Moles/vo source lume] in data Serum or Plasma Creatinin 0.55 - mg/dL Normal No Apr 04 e 1.02 informati 2016 7:20 [Mass/vol on in AM ume] in source Serum or data Plasma Creatinin 50 - 200 ML/MIN Normal No Apr 04 e renal informati 2016 7:20 clearance on in AM source predicted data by Cockcroft -Gault formula Estimated 59- ML/MIN No REFERENCE Apr 04 informati RANGE: 2016 7:20 glomerula on in >60 AM r source ML/MIN/1. filtratio data 73 SQUARE n rate METERSIf (GF this patient is -A merican, then multiply theresult by 1.210. Globulin 1.3 - 3.2 gm/dL High No Apr 04 [Mass/vol informati 2016 7:20 ume] in on in AM Serum source data Glucose 74 - 106 mg/dL Normal No Apr 04 [Mass/vol informati 2016 7:20 ume] in on in AM Serum or source Plasma data Potassium 3.5 - 5.1 mmoL/L Normal No Apr 04 informati 2016 7:20 [Moles/vo on in AM lume] in source Serum or data Plasma Sodium 136 - 145 mmoL/L Normal No Apr 04 [Moles/vo informati 2016 7:20 lume] in on in AM Serum or source Plasma data Aspartate 15 - 37 U/L No No Apr 04 informati informati 2016 7:20 aminotran on in on in AM sferase source source [Enzymati data data c activity/ volume] in Serum or Plasma Alanine 12 - 78 U/L Normal No Apr 04 aminotran informati 2016 7:20 sferase on in AM [Enzymati source c data activity/ volume] in Serum or Plasma Protein 6.4 - 8.2 gm/dL Normal No Apr 04 [Mass/vol informati 2016 7:20 ume] in on in AM Serum or source Plasma data CBC W Auto Differential panel in Blood Observa Value Referen Units Interpr Notes Date tion ce etation Range Basophils 0 - 0.2 K/MM3 Normal No Apr 04 informati 2016 7:20 [#/volume on in AM ] in source Blood by data Automated count Basophils 0.1 - 2.0 % Normal No Apr 04 /100 informati 2016 7:20 leukocyte on in AM s in source Blood by data Automated count Eosinophi 0.0 - 0.4 K/mm3 Normal No Apr 04 ls informati 2016 7:20 [#/volume on in AM ] in source Blood by data Automated count Eosinophi 0.1 - % Normal No Apr 04 ls/100 12.0 informati 2016 7:20 leukocyte on in AM s in source Blood by data Automated count Granulocy 1.8 - 7.8 K/mm3 High No Apr 04 malinda informati 2016 7:20 [#/volume on in AM ] in source Blood by data Automated count Granulocy 37.0 - % High No Apr 04 malinda/100 80.0 informati 2016 7:20 leukocyte on in AM s in source Blood by data Automated count Hematocri 37.0 - % Low Apr 04 t [Volume 47.0 informati 2016 7:20 on in AM Fraction] source of Blood data Hemoglobi 12.2 - g/dL Low Apr 04 n 16.2 informati 2016 7:20 [Mass/vol on in AM ume] in source Blood data Lymphocyt 0.7 - 4.5 K/mm3 Normal No Apr 04 es informati 2016 7:20 [#/volume on in AM ] in source Unspecifi data ed specimen by Automated count Lymphocyt 10 - 50.0 % Low No Apr 04 es informati 2016 7:20 [#/volume on in AM ] in source Unspecifi data ed specimen by Automated count Erythrocy 27 - 31.2 pg Normal No Apr 04 te mean informati 2016 7:20 corpuscul on in AM ar source hemoglobi data n [Entitic mass] Erythrocy 31.8 - g/dl Normal Apr 04 te mean 35.4 informati 2017 7:20 corpuscul on in AM ar source hemoglobi data n concentra tion [Mass/vol ume] by Automated count Erythrocy 82.2 - fl Normal Apr 04 te mean 97.8 informati 2016 7:20 corpuscul on in AM ar volume source [Entitic data volume] by Automated count Monocytes 0.1 - 1.0 K/mm3 Normal No Apr 04 inform2016 7:20 [#/volume on in AM ] in source Blood by data Automated count Monocytes 1.7 - 9.3 % Normal No Apr 04 /100 informati 2016 7:20 leukocyte on in AM s in source Blood by data Automated count Platelet 7.4 - fl Normal Apr 04 mean 10.4 ati 2016 7:20 volume on in AM [Entitic source volume] data in Blood by Automated count Platelets 142 - 424 K/mm3 Normal No Apr 042016 7:20 [#/volume on in AM ] in source Blood data Erythrocy 4.2 - 5.4 M/mm3 Low No Apr 04 malinda informati 2016 7:20 [#/volume on in AM ] in source Amniotic data fluid Erythrocy 11.5 - % Normal Apr 04 te 17.5 ati 2016 7:20 distribut on in AM ion width source [Entitic data volume] by Automated count Leukocyte 4.5 - K/MM3 No Apr 04 s 13.0 informati informati 2016 7:20 [#/volume on in on in AM ] in source source Blood data data Urinalysis dipstick W Reflex Microscopic panel in Urine Observa Value Referen Units Interpr Notes Date tion ce etation Range Appeara CLOUDY CLEAR No No No Apr 04 nce of informa informa informa 2016 Urine tion in tion in tion in 7:05 AM source source source data data data Bacteri 3+ O No No No Apr 04 a informa informa informa 2016 [Presen tion in tion in tion in 7:05 AM ce] in source source source Urine data data data sedimen t by Light microsc opy Bilirub NEGATIV NEG No No No Apr 04 in E informa informa informa 2016 [Presen tion in tion in tion in 7:05 AM ce] in source source source Urine data data data by Test strip Erythro 3+ NEG No Abnorma Apr 04 cytes informa l informa 2016 [Presen tion in tion in 7:05 AM ce] in source source Urine data data Color MIKE YELLOW No No No Apr 04 of informa informa informa 2016 Urine tion in tion in tion in 7:05 AM source source source data data data Glucose NEG No No No Apr 04 [Mass/vol informati informati informati 2017 7:05 ume] in on in on in on in AM Urine by source source source Test data data data strip Hyaline OCC NONE #/lpf No No Apr 04 casts informa informa 2016 [Presen tion in tion in 7:05 AM ce] in source source Urine data data sedimen t by Light microsc opy Ketones NEGATIV NEG mg/dL No No Apr 04 E informa informa 2016 [Presen tion in tion in 7:05 AM ce] in source source Urine data data by Automat ed test strip Mucus TRACE NEG No Abnorma No Apr 04 [Presen informa l informa 2016 ce] in tion in tion in 7:05 AM Urine source source sedimen data data t by Light microsc opy Nitrite NEGATIV NEG No No No Apr 04 E informa informa informa 2016 [Presen tion in tion in tion in 7:05 AM ce] in source source source Urine data data data by Test strip pH of 5.0 - 8.5 No Normal No Apr 04 Urine informati informati 2017 7:05 on in on in AM source source data data Protein NEG mg/dL High No Apr 04 [Mass/vol informati 2017 7:05 ume] in on in AM Urine by source Automated data test strip Erythro 5-10 0 rbc/hpf No No Apr 04 cytes informa informa 2016 [Presen tion in tion in 7:05 AM ce] in source source Urine data data sedimen t by Light microsc opy Specific 1.005 - No Normal No Apr 04 gravity 1.030 informati informati 2017 7:05 of Urine on in on in AM source source data data Epithel 10-20 0 - 5 #/hpf No No Apr 04 ial informa informa 2017 cells.s tion in tion in 7:05 AM quamous source source data data [Presen ce] in Urine sedimen t by Microsc opy high power field Urobili 1.0 NEG E.U./dL No No Apr 04 nogen informa informa 2016 [Presen tion in tion in 7:05 AM ce] in source source Urine data data by Test strip Leukocy [5 O wbc/hpf No No Apr 04 malinda wbc/hpf informa informa 2017 [#/volu ; 10 tion in tion in 7:05 AM me] in wbc/hpf source source Urine ] data data Urinalysis dipstick W Reflex Microscopic panel in Urine Observa Value Referen Units Interpr Notes Date tion ce etation Range Appeara CLOUDY CLEAR No No No Apr 04 nce of informa informa informa 2016 Urine tion in tion in tion in 7:05 AM source source source data data data Bilirub NEGATIV NEG No No No Apr 04 in E informa informa informa 2016 [Presen tion in tion in tion in 7:05 AM ce] in source source source Urine data data data by Test strip Erythro 3+ NEG No Abnorma No Apr 04 cytes informa l informa 2016 [Presen tion in tion in 7:05 AM ce] in source source Urine data data Color MIKE YELLOW No No No Apr 04 of informa informa informa 2016 Urine tion in tion in tion in 7:05 AM source source source data data data Glucose NEG No No No Apr 04 [Mass/vol informati informati informati 2016 7:05 ume] in on in on in on in AM Urine by source source source Test data data data strip Ketones NEGATIV NEG mg/dL No No Apr 04 E informa informa 2016 [Presen tion in tion in 7:05 AM ce] in source source Urine data data by Automat ed test strip Mucus TRACE NEG No Abnorma No Apr 04 [Presen informa l informa 2016 ce] in tion in tion in 7:05 AM Urine source source sedimen data data t by Light microsc opy Nitrite NEGATIV NEG No No No Apr 04 E informa informa informa 2016 [Presen tion in tion in tion in 7:05 AM ce] in source source source Urine data data data by Test strip pH of 5.0 - 8.5 No Normal No Apr 04 Urine informati informati 2017 7:05 on in on in AM source source data data Protein NEG mg/dL High No Apr 04 [Mass/vol informati 2016 7:05 ume] in on in AM Urine by source Automated data test strip Specific 1.005 - No Normal No Apr 04 gravity 1.030 informati informati 2017 7:05 of Urine on in on in AM source source data data Urobili 1.0 NEG E.U./dL No No Apr 04 nogen informa informa 2016 [Presen tion in tion in 7:05 AM ce] in source source Urine data data by Test strip Chlamydia/GC Amplification Observa Value Referen Units Interpr Notes Date tion ce etation Range Chlamyd Negativ Negativ No No No Apr 01 ia e e informa informa informa 2017 trachom tion in tion in tion in 11:05 atis source source source AM rRNA data data data [Presen ce] in Unspeci fied specime n by Probe & target amplifi cation method Neisser Negativ Negativ No No Perform Apr 01 ia e e informa informa ed at: 2017 gonorrh tion in tion in =G - 11:05 oeae source source [facility] AM rRNA data data [Presen Bob ce] in gen064 Unspeci [place] f[place], specime [place], [place] Probe & target [id number] amplifi Directo cation r: method Caitlin Bailey MD, Phone: [phone] INR in Blood by Coagulation assay Observa Value Referen Units Interpr Notes Date ti ce etation Range IS PATIENT ON ANTICOAGULANTS? N PTT RESULTS MUST BE CALLED IF PT ON HEPARIN!!! Y INR in 0.9 - 1.1 No High INDICATIO Apr 01 Blood by informati N 2017 Coagulati on in 11:05 AM on assay source INR data RANGETHER APY FOR DVT, PE, ATRIAL FIB; 2.0 - 3.0PROPHY LAXIS FOR VTETHERAP Y FOR MECHANICA L HEART 2.5 - 3.5VALVE; PREVENTIO N OF SYSTEMICE MBOLISM SECONDARY TO AMI Prothromb 9.4 - SECONDS High No Apr 01 in time 11.8 informati 2016 (PT) in on in 11:05 AM Platelet source poor data plasma by Coagulati on assay Activated partial thrombplastin time (aPTT) in Platelet poor plasma by Coagulation assay Observa Value Referen Units Interpr Notes Date ti ce etation Range IS PATIENT ON ANTICOAGULANTS? N PTT RESULTS MUST BE CALLED IF PT ON HEPARIN!!! Y Activated 23.6 - SECONDS Normal No Apr 01 partial 34.0 informati 2016 thrombpla on in 11:05 AM stin time source (aPTT) data in Platelet poor plasma by Coagulati on assay Choriogonadotropin.beta subunit ( test) [Presence] in Serum or Plasma Observa Value Referen Units Interpr Notes Date tion ce etation Range Choriog 9830.9 No mIU/ML No NON-PRE Apr 01 onadotr informa informa GNANT 2017 opin.be tion in tion in FEMALES 11:00 ta source source AM subunit data data REFEREN CE (pregna RANGE = ncy 0 - 6 test) mIU/mLG [Presen estatio ce] in nal Age Serum or HCG Plasma RANGE0. 2 WEEKS 5 - 501-2 WEEKS 50 - 5002-3 WEEKS 100 - 5,0003- 4 WEEKS 500 - 10,0004 -5 WEEKS 1,000 - 50,0005 -6 WEEKS 10,000 - 100,000 6-8 WEEKS 15,000 - 200,000 2-3 MONTHS 10,000 - 100,000 Comprehensive metabolic 2000 panel in Serum or Plasma Observa Value Referen Units Interpr Notes Date tion ce etation Range Albumin/G 1.1 - 1.8 No Low No Apr 01 lobulin informati informati 2016 [Mass on in on in 11:00 AM ratio] in source source Serum or data data Plasma Albumin 3.4 - 5.0 gm/dL Normal No Apr 01 [Mass/vol informati 2016 ume] in on in 11:00 AM Serum or source Plasma data Alkaline 46 - 116 U/L Normal No Apr 01 phosphata informati 2016 se on in 11:00 AM [Enzymati source c data activity/ volume] in Serum or Plasma Bilirubin 0.2 - 1.0 mg/dL Normal No Apr 01 .total informati 2016 [Mass/vol on in 11:00 AM ume] in source Serum or data Plasma Urea 7 - 18 mg/dL Normal No Apr 01 nitrogen informati 2016 [Mass/vol on in 11:00 AM ume] in source Serum or data Plasma Calcium 8.5 - mg/dL Normal No Apr 01 [Mass/vol 10.1 informati 2017 ume] in on in 11:00 AM Serum or source Plasma data Chloride 98 - 107 mmoL/L Normal No Apr 01 [Moles/vo informati 2017 lume] in on in 11:00 AM Serum or source Plasma data Carbon 21.0 - mmoL/L Normal No Apr 01 dioxide, 32.0 inform2016 total on in 11:00 AM [Moles/vo source lume] in data Serum or Plasma Creatinin 0.55 - mg/dL Low No Apr 01 e 1.02 informati 2016 [Mass/vol on in 11:00 AM ume] in source Serum or data Plasma Creatinin 50 - 200 ML/MIN High No Apr 01 e renal ati 2016 clearance on in 11:00 AM source predicted data by Cockcroft -Gault formula Estimated 59- ML/MIN No REFERENCE Apr 01 informati RANGE: 2017 glomerula on in >60 11:00 AM r source ML/MIN/1. filtratio data 73 SQUARE n rate METERSIf (GF this patient is -A merican, then multiply theresult by 1.210. Globulin 1.3 - 3.2 gm/dL High No Apr 01 [Mass/vol informati 2016 ume] in on in 11:00 AM Serum source data Glucose 74 - 106 mg/dL Normal No Apr 01 [Mass/vol informati 2016 ume] in on in 11:00 AM Serum or source Plasma data Potassium 3.5 - 5.1 mmoL/L Normal No Apr 012016 [Moles/vo on in 11:00 AM lume] in source Serum or data Plasma Sodium 136 - 145 mmoL/L Normal No Apr 01 [Moles/vo informati 2016 lume] in on in 11:00 AM Serum or source Plasma data Aspartate 15 - 37 U/L Normal No Apr 012016 aminotran on in 11:00 AM sferase source [Enzymati data c activity/ volume] in Serum or Plasma Alanine 12 - 78 U/L Normal No Apr 01 aminotran 2016 sferase on in 11:00 AM [Enzymati source c data activity/ volume] in Serum or Plasma Protein 6.4 - 8.2 gm/dL High No Apr 01 [Mass/vol informati 2016 ume] in on in 11:00 AM Serum or source Plasma data CBC W Auto Differential panel in Blood Observa Value Referen Units Interpr Notes Date tion ce etation Range Basophils 0 - 0.2 K/MM3 Normal No Apr 012016 [#/volume on in 11:00 AM ] in source Blood by data Automated count Basophils 0.1 - 2.0 % Normal No Apr 01 /100 informati 2016 leukocyte on in 11:00 AM s in source Blood by data Automated count Eosinophi 0.0 - 0.4 K/mm3 Normal No Apr 01 ls informati 2016 [#/volume on in 11:00 AM ] in source Blood by data Automated count Eosinophi 0.1 - % Normal No Apr 01 ls/100 12.0 inform2016 leukocyte on in 11:00 AM s in source Blood by data Automated count Granulocy 1.8 - 7.8 K/mm3 Normal No Apr 01 malinda informati 2016 [#/volume on in 11:00 AM ] in source Blood by data Automated count Granulocy 37.0 - % Normal No Apr 01 malinda/100 80.0 informati 2016 leukocyte on in 11:00 AM s in source Blood by data Automated count Hematocri 37.0 - % Normal No Apr 01 t [Volume 47.0 informati 2016 on in 11:00 AM Fraction] source of Blood data Hemoglobi 12.2 - g/dL Normal No Apr 01 n 16.2 informati 2016 [Mass/vol on in 11:00 AM ume] in source Blood data Lymphocyt 0.7 - 4.5 K/mm3 Normal No Apr 01 es inform2016 [#/volume on in 11:00 AM ] in source Unspecifi data ed specimen by Automated count Lymphocyt 10 - 50.0 % Normal No Apr 01 es informati 2016 [#/volume on in 11:00 AM ] in source Unspecifi data ed specimen by Automated count Erythrocy 27 - 31.2 pg Normal No Apr 01 te mean inform2016 corpuscul on in 11:00 AM ar source hemoglobi data n [Entitic mass] Erythrocy 31.8 - g/dl Normal No Apr 01 te mean 35.4 informati 2016 corpuscul on in 11:00 AM ar source hemoglobi data n concentra tion [Mass/vol ume] by Automated count Erythrocy 82.2 - fl Normal No Apr 01 te mean 97.8 informati 2016 corpuscul on in 11:00 AM ar volume source [Entitic data volume] by Automated count Monocytes 0.1 - 1.0 K/mm3 Normal No Apr 01 inform2016 [#/volume on in 11:00 AM ] in source Blood by data Automated count Monocytes 1.7 - 9.3 % Normal No Apr 01 /100 informati 2016 leukocyte on in 11:00 AM s in source Blood by data Automated count Platelet 7.4 - fl Normal No Apr 01 mean 10.4 informati 2016 volume on in 11:00 AM [Entitic source volume] data in Blood by Automated count Platelets 142 - 424 K/mm3 Normal No Apr 01 informati 2016 [#/volume on in 11:00 AM ] in source Blood data Erythrocy 4.2 - 5.4 M/mm3 Normal No Apr 01 malinda informati 2016 [#/volume on in 11:00 AM ] in source Amniotic data fluid Erythrocy 11.5 - % Normal No Apr 01 te 17.5 informati 2016 distribut on in 11:00 AM ion width source [Entitic data volume] by Automated count Leukocyte 4.5 - K/MM3 Normal No Apr 01 s 13.0 informati 2016 [#/volume on in 11:00 AM ] in source Blood data Comprehensive metabolic 2000 panel in Serum or Plasma Observa Value Referen Units Interpr Notes Date tion ce etation Range Albumin/G 1.1 - 1.8 No Low No Feb 27 lobulin informati informati 2016 7:23 [Mass on in on in AM ratio] in source source Serum or data data Plasma Albumin 3.4 - 5.0 gm/dL Normal No Feb 27 [Mass/vol informati 2016 7:23 ume] in on in AM Serum or source Plasma data Alkaline 46 - 116 U/L Normal No Feb 27 phosphata informati 2016 7:23 se on in AM [Enzymati source c data activity/ volume] in Serum or Plasma Bilirubin 0.2 - 1.0 mg/dL Normal No Feb 27 .total informati 2016 7:23 [Mass/vol on in AM ume] in source Serum or data Plasma Urea 7 - 18 mg/dL Normal No Feb 27 nitrogen informati 2016 7:23 [Mass/vol on in AM ume] in source Serum or data Plasma Calcium 8.5 - mg/dL Normal No Feb 27 [Mass/vol 10.1 informati 2016 7:23 ume] in on in AM Serum or source Plasma data Chloride 98 - 107 mmoL/L Normal No Feb 27 [Moles/vo informati 2016 7:23 lume] in on in AM Serum or source Plasma data Carbon 21.0 - mmoL/L Normal No Feb 27 dioxide, 32.0 informati 2016 7:23 total on in AM [Moles/vo source lume] in data Serum or Plasma Creatinin 0.55 - mg/dL Low No Feb 27 e 1.02 informati 2016 7:23 [Mass/vol on in AM ume] in source Serum or data Plasma Creatinin 50 - 200 ML/MIN High No Feb 27 e renal informati 2017 7:23 clearance on in AM source predicted data by Cockcroft -Gault formula Estimated 59- ML/MIN No REFERENCE Feb 27 informati RANGE: 2017 7:23 glomerula on in >60 AM r source ML/MIN/1. filtratio data 73 SQUARE n rate METERSIf (GF this patient is -A merican, then multiply theresult by 1.210. Globulin 1.3 - 3.2 gm/dL High No Feb 27 [Mass/vol informati 2016 7:23 ume] in on in AM Serum source data Glucose 74 - 106 mg/dL Normal No Feb 27 [Mass/vol informati 2016 7:23 ume] in on in AM Serum or source Plasma data Potassium 3.5 - 5.1 mmoL/L Normal No Feb 27 informati 2016 7:23 [Moles/vo on in AM lume] in source Serum or data Plasma Sodium 136 - 145 mmoL/L Normal No Feb 27 [Moles/vo informati 2016 7:23 lume] in on in AM Serum or source Plasma data Aspartate 15 - 37 U/L Normal No Feb 27 informati 2016 7:23 aminotran on in AM sferase source [Enzymati data c activity/ volume] in Serum or Plasma Alanine 12 - 78 U/L Normal No Feb 27 aminotran informati 2016 7:23 sferase on in AM [Enzymati source c data activity/ volume] in Serum or Plasma Protein 6.4 - 8.2 gm/dL Normal No Feb 27 [Mass/vol informati 2016 7:23 ume] in on in AM Serum or source Plasma data CBC W Auto Differential panel in Blood Observa Value Referen Units Interpr Notes Date tion ce etation Range Granulocy 1.8 - 7.8 K/mm3 High No Feb 27 malinda informati 2016 7:23 [#/volume on in AM ] in source Blood by data Automated count Granulocy 37.0 - % Normal No Feb 27 malinda/100 80.0 informati 2016 7:23 leukocyte on in AM s in source Blood by data Automated count Hematocri 37.0 - % Low No Feb 27 t [Volume 47.0 informati 2017 7:23 on in AM Fraction] source of Blood data Hemoglobi 12.2 - g/dL Low No Feb 27 n 16.2 informati 2017 7:23 [Mass/vol on in AM ume] in source Blood data Lymphocyt 0.7 - 4.5 K/mm3 Normal No Feb 27 es informati 2016 7:23 [#/volume on in AM ] in source Unspecifi data ed specimen by Automated count Lymphocyt 10 - 50.0 % Normal No Feb 27 es informati 2016 7:23 [#/volume on in AM ] in source Unspecifi data ed specimen by Automated count Erythrocy 27 - 31.2 pg Normal No Feb 27 te mean informati 2016 7:23 corpuscul on in AM ar source hemoglobi data n [Entitic mass] Erythrocy 31.8 - g/dl Normal No Feb 27 te mean 35.4 informati 2016 7:23 corpuscul on in AM ar source hemoglobi data n concentra tion [Mass/vol ume] by Automated count Erythrocy 82.2 - fL Normal No Feb 27 te mean 97.8 informati 2017 7:23 corpuscul on in AM ar volume source [Entitic data volume] by Automated count Monocytes 0.1 - 1.0 K/mm3 Normal No Feb 27 informati 2017 7:23 [#/volume on in AM ] in source Blood by data Automated count Monocytes 1.7 - 9.3 % Normal No Feb 27 /100 informati 2017 7:23 leukocyte on in AM s in source Blood by data Automated count Platelets 142 - 424 K/mm3 Normal No Feb 27 informati 2017 7:23 [#/volume on in AM ] in source Blood data Erythrocy 4.2 - 5.4 M/mm3 Low No Feb 27 malinda informati 2017 7:23 [#/volume on in AM ] in source Amniotic data fluid Erythrocy 11.5 - % Normal No Feb 27 te 17.5 informati 2017 7:23 distribut on in AM ion width source [Entitic data volume] by Automated count Leukocyte 4.5 - K/mm3 Normal No Feb 27 s 13.0 informati 2017 7:23 [#/volume on in AM ] in source Blood data CBC W Auto Differential panel in Blood Observa Value Referen Units Interpr Notes Date tion ce etation Range Granulocy 1.8 - 7.8 K/mm3 High No Feb 27 malinda informati 2016 7:23 [#/volume on in AM ] in source Blood by data Automated count Granulocy 37.0 - % Normal No Feb 27 malinda/100 80.0 informati 2016 7:23 leukocyte on in AM s in source Blood by data Automated count Hematocri 37.0 - % Low No Feb 27 t [Volume 47.0 informati 2016 7:23 on in AM Fraction] source of Blood data Hemoglobi 12.2 - g/dL Low No Feb 27 n 16.2 informati 2016 7:23 [Mass/vol on in AM ume] in source Blood data Lymphocyt 0.7 - 4.5 K/mm3 Normal No Feb 27 es informati 2016 7:23 [#/volume on in AM ] in source Unspecifi data ed specimen by Automated count Lymphocyt 10 - 50.0 % Normal No Feb 27 es informati 2016 7:23 [#/volume on in AM ] in source Unspecifi data ed specimen by Automated count Erythrocy 27 - 31.2 pg Normal No Feb 27 te mean informati 2016 7:23 corpuscul on in AM ar source hemoglobi data n [Entitic mass] Erythrocy 31.8 - g/dl Normal No Feb 27 te mean 35.4 informati 2016 7:23 corpuscul on in AM ar source hemoglobi data n concentra tion [Mass/vol ume] by Automated count Erythrocy 82.2 - fL Normal No Feb 27 te mean 97.8 informati 2016 7:23 corpuscul on in AM ar volume source [Entitic data volume] by Automated count Monocytes 0.1 - 1.0 K/mm3 Normal No Feb 27 informati 2016 7:23 [#/volume on in AM ] in source Blood by data Automated count Monocytes 1.7 - 9.3 % Normal No Feb 27 / informati 2017 7:23 leukocyte on in AM s in source Blood by data Automated count Platelets 142 - 424 K/mm3 Normal No Feb 27 informati 2016 7:23 [#/volume on in AM ] in source Blood data Erythrocy 4.2 - 5.4 M/mm3 Low No Feb 27 malinda informati 2016 7:23 [#/volume on in AM ] in source Amniotic data fluid Erythrocy 11.5 - % Normal No Feb 27 te 17.5 informati 2017 7:23 distribut on in AM ion width source [Entitic data volume] by Automated count Leukocyte 4.5 - K/mm3 Normal No Feb 27 s 13.0 informati 2017 7:23 [#/volume on in AM ] in source Blood data Urinalysis dipstick W Reflex Microscopic panel in Urine Observa Value Referen Units Interpr Notes Date tion ce etation Range Appeara CLEAR CLEAR No No No Feb 27 nce of informa informa informa 2016 Urine tion in tion in tion in 7:10 AM source source source data data data Bilirub NEGATIV NEG No No No Feb 27 in E informa informa informa 2016 [Presen tion in tion in tion in 7:10 AM ce] in source source source Urine data data data by Test strip Erythro 2+ NEG No Abnorma No Feb 27 cytes informa l informa 2016 [Presen tion in tion in 7:10 AM ce] in source source Urine data data Color YELLOW YELLOW No No No Feb 27 of informa informa informa 2016 Urine tion in tion in tion in 7:10 AM source source source data data data Glucose NEG No No No Feb 27 [Mass/vol informati informati informati 2016 7:10 ume] in on in on in on in AM Urine by source source source Test data data data strip Ketones 1+ NEG mg/dL Abnorma No Feb 27 l informa 2016 [Presen tion in 7:10 AM ce] in source Urine data by Automat ed test strip Mucus NEGATIV NEG No No No Feb 27 [Presen E informa informa informa 2016 ce] in tion in tion in tion in 7:10 AM Urine source source source sedimen data data data t by Light microsc opy Nitrite NEGATIV NEG No No No Feb 27 E informa informa informa 2016 [Presen tion in tion in tion in 7:10 AM ce] in source source source Urine data data data by Test strip pH of 5.0 - 8.5 No Normal No Feb 27 Urine informati informati 2017 7:10 on in on in AM source source data data Protein NEG mg/dL No No Feb 27 [Mass/vol informati informati 2016 7:10 ume] in on in on in AM Urine by source source Automated data data test strip Erythro 5-10 0 rbc/hpf No No Feb 27 cytes informa informa 2016 [Presen tion in tion in 7:10 AM ce] in source source Urine data data sedimen t by Light microsc opy Specific 1.005 - No Normal No Feb 27 gravity 1.030 informati informati 2017 7:10 of Urine on in on in AM source source data data Epithel 10-20 0 - 5 #/hpf No No Feb 27 ial informa informa 2017 cells.s tion in tion in 7:10 AM quamous source source data data [Presen ce] in Urine sedimen t by Microsc opy high power field Urobili 0.2 NEG E.U./dL No No Feb 27 nogen informa informa 2016 [Presen tion in tion in 7:10 AM ce] in source source Urine data data by Test strip Urinalysis dipstick W Reflex Microscopic panel in Urine Observa Value Referen Units Interpr Notes Date tion ce etation Range Appeara CLEAR CLEAR No No No Feb 27 nce of informa informa informa 2017 Urine tion in tion in tion in 7:10 AM source source source data data data Bilirub NEGATIV NEG No No No Feb 27 in E informa informa informa 2016 [Presen tion in tion in tion in 7:10 AM ce] in source source source Urine data data data by Test strip Erythro 2+ NEG No Abnorma No Feb 27 cytes informa l informa 2016 [Presen tion in tion in 7:10 AM ce] in source source Urine data data Color YELLOW YELLOW No No No Feb 27 of informa informa informa 2017 Urine tion in tion in tion in 7:10 AM source source source data data data Glucose NEG No No No Feb 27 [Mass/vol informati informati informati 2016 7:10 ume] in on in on in on in AM Urine by source source source Test data data data strip Ketones 1+ NEG mg/dL Abnorma No Feb 27 l informa 2016 [Presen tion in 7:10 AM ce] in source Urine data by Automat ed test strip Mucus NEGATIV NEG No No No Feb 27 [Presen E informa informa informa 2017 ce] in tion in tion in tion in 7:10 AM Urine source source source sedimen data data data t by Light microsc opy Nitrite NEGATIV NEG No No No Feb 27 E informa informa informa 2016 [Presen tion in tion in tion in 7:10 AM ce] in source source source Urine data data data by Test strip pH of 5.0 - 8.5 No Normal No Feb 27 Urine informati informati 2017 7:10 on in on in AM source source data data Protein NEG mg/dL No No Feb 27 [Mass/vol informati informati 2017 7:10 ume] in on in on in AM Urine by source source Automated data data test strip Erythro 5-10 0 rbc/hpf No No Feb 27 cytes informa informa 2016 [Presen tion in tion in 7:10 AM ce] in source source Urine data data sedimen t by Light microsc opy Specific 1.005 - No Normal No Feb 27 gravity 1.030 informati informati 2017 7:10 of Urine on in on in AM source source data data Epithel 10-20 0 - 5 #/hpf No No Feb 27 ial informa informa 2017 cells.s tion in tion in 7:10 AM quamous source source data data [Presen ce] in Urine sedimen t by Microsc opy high power field Urobili 0.2 NEG E.U./dL No No Feb 27 nogen informa informa 2016 [Presen tion in tion in 7:10 AM ce] in source source Urine data data by Test strip Urinalysis dipstick W Reflex Microscopic panel in Urine Observa Value Referen Units Interpr Notes Date tion ce etation Range Appeara CLEAR CLEAR No No No Feb 27 nce of informa informa informa 2017 Urine tion in tion in tion in 7:10 AM source source source data data data Bilirub NEGATIV NEG No No No Feb 27 in E informa informa informa 2016 [Presen tion in tion in tion in 7:10 AM ce] in source source source Urine data data data by Test strip Erythro 2+ NEG No Abnorma No Feb 27 cytes informa l informa 2016 [Presen tion in tion in 7:10 AM ce] in source source Urine data data Color YELLOW YELLOW No No No Feb 27 of informa informa informa 2016 Urine tion in tion in tion in 7:10 AM source source source data data data Glucose NEG No No No Feb 27 [Mass/vol informati informati informati 2016 7:10 ume] in on in on in on in AM Urine by source source source Test data data data strip Ketones 1+ NEG mg/dL Abnorma No Feb 27 l informa 2016 [Presen tion in 7:10 AM ce] in source Urine data by Automat ed test strip Mucus NEGATIV NEG No No No Feb 27 [Presen E informa informa informa 2016 ce] in tion in tion in tion in 7:10 AM Urine source source source sedimen data data data t by Light microsc opy Nitrite NEGATIV NEG No No No Feb 27 E informa informa informa 2016 [Presen tion in tion in tion in 7:10 AM ce] in source source source Urine data data data by Test strip pH of 5.0 - 8.5 No Normal No Feb 27 Urine informati informati 2017 7:10 on in on in AM source source data data Protein NEG mg/dL No No Feb 27 [Mass/vol informati informati 2016 7:10 ume] in on in on in AM Urine by source source Automated data data test strip Erythro 5-10 0 rbc/hpf No No Feb 27 cytes informa informa 2016 [Presen tion in tion in 7:10 AM ce] in source source Urine data data sedimen t by Light microsc opy Specific 1.005 - No Normal No Feb 27 gravity 1.030 informati informati 2017 7:10 of Urine on in on in AM source source data data Epithel 10-20 0 - 5 #/hpf No No Feb 27 ial informa informa 2017 cells.s tion in tion in 7:10 AM quamous source source data data [Presen ce] in Urine sedimen t by Microsc opy high power field Urobili 0.2 NEG E.U./dL No No Feb 27 nogen informa informa 2016 [Presen tion in tion in 7:10 AM ce] in source source Urine data data by Test strip Urinalysis dipstick W Reflex Microscopic panel in Urine Observa Value Referen Units Interpr Notes Date tion ce etation Range Appeara CLEAR CLEAR No No No Feb 27 nce of informa informa informa 2016 Urine tion in tion in tion in 7:10 AM source source source data data data Bilirub NEGATIV NEG No No No Feb 27 in E informa informa informa 2016 [Presen tion in tion in tion in 7:10 AM ce] in source source source Urine data data data by Test strip Erythro 2+ NEG No Abnorma No Feb 27 cytes informa l informa 2016 [Presen tion in tion in 7:10 AM ce] in source source Urine data data Color YELLOW YELLOW No No No Feb 27 of informa informa informa 2016 Urine tion in tion in tion in 7:10 AM source source source data data data Glucose NEG No No No Feb 27 [Mass/vol informati informati informati 2016 7:10 ume] in on in on in on in AM Urine by source source source Test data data data strip Ketones 1+ NEG mg/dL Abnorma No Feb 27 l informa 2016 [Presen tion in 7:10 AM ce] in source Urine data by Automat ed test strip Mucus NEGATIV NEG No No No Feb 27 [Presen E informa informa informa 2016 ce] in tion in tion in tion in 7:10 AM Urine source source source sedimen data data data t by Light microsc opy Nitrite NEGATIV NEG No No No Feb 27 E informa informa informa 2016 [Presen tion in tion in tion in 7:10 AM ce] in source source source Urine data data data by Test strip pH of 5.0 - 8.5 No Normal No Feb 27 Urine informati informati 2016 7:10 on in on in AM source source data data Protein NEG mg/dL No No Feb 27 [Mass/vol informati informati 2016 7:10 ume] in on in on in AM Urine by source source Automated data data test strip Specific 1.005 - No Normal No Feb 27 gravity 1.030 informati informati 2016 7:10 of Urine on in on in AM source source data data Urobili 0.2 NEG E.U./dL No No Feb 27 nogen informa informa 2016 [Presen tion in tion in 7:10 AM ce] in source source Urine data data by Test strip Choriogonadotropin.beta subunit [Units] in 24 hour Urine Observa Value Referen Units Interpr Notes Date tion ce etation Range Choriogon NEG No No No Feb 27 adotropin informati informati informati 2016 7:10 .beta on in on in on in AM subunit source source source [Units] data data data in 24 hour Urine HBsAg Screen Observa Value Referen Units Interpr Notes Date tion ce etation Range Hepatit Negativ Negativ No No Perform Feb 21 is B e e informa informa ed at: 2017 virus tion in tion in CB - 10:25 surface source source [facility] AM Ag data data [Presen [place]6 ce] in [address], [facility], [facility] [id number]Lab Directo r: Reginald Guillermo ti PhD, Phone: [phone] Reagin Ab [Titer] in Serum by RPR Observa Value Referen Units Interpr Notes Date tion ce etation Range Reagin Ab NonRea<1: No No No Feb 21 [Titer] 1 informati informati informati 2016 in Serum on in on in on in 10:25 AM by RPR source source source data data data Rubella virus IgG Ab [Units/volume] in Serum by Immunoassay Observa Value Referen Units Interpr Notes Date tion ce etation Range Rubella Immune index No Non-immun Feb 21 virus IgG >0.99 informati e 2017 Ab on in <0.90Equi 10:25 AM [Units/vo source vocal lume] in data 0.90 - Serum by 0.99Immun Immunoass e ay >0.99 Blood group antibody screen [Presence] in Serum or Plasma Observa Value Referen Units Interpr Notes Date tion ce etation Range Blood NEGATIV NEGATIV No No No Feb 21 group E E informa informa informa 2016 antibod tion in tion in tion in 10:25 y source source source AM screen data data data [Presen ce] in Serum or Plasma Rh [Type] in Blood Observa Value Referen Units Interpr Notes Date tion ce etation Range Rh POSITIV No No No No Feb 21 [Type] E informa informa informa informa 2017 in tion in tion in tion in tion in 10:25 Blood source source source source AM data data data data ABO group [Type] in Blood Observa Value Referen Units Interpr Notes Date ti ce etation Range ABO A No No No No Feb 21 group informa informa informa informa 2017 [Type] tion in tion in tion in tion in 10:25 in source source source source AM Blood data data data data CBC W Auto Differential panel in Blood Observa Value Referen Units Interpr Notes Date tion ce etation Range Basophils 0 - 0.2 K/MM3 Normal No Feb 21 inform2016 [#/volume on in 10:25 AM ] in source Blood by data Automated count Basophils 0.1 - 2.0 % Low No Feb 21 /100 informati 2016 leukocyte on in 10:25 AM s in source Blood by data Automated count Eosinophi 0.0 - 0.4 K/mm3 Normal No Feb 21 ls ati 2016 [#/volume on in 10:25 AM ] in source Blood by data Automated count Eosinophi 0.1 - % Normal No Feb 21 ls/100 12.0 inform2016 leukocyte on in 10:25 AM s in source Blood by data Automated count Granulocy 1.8 - 7.8 K/mm3 Normal No Feb 21 malinda ati 2016 [#/volume on in 10:25 AM ] in source Blood by data Automated count Granulocy 37.0 - % Normal No Feb 21 malinda/100 80.0 2016 leukocyte on in 10:25 AM s in source Blood by data Automated count Hematocri 37.0 - % Low No Feb 21 t [Volume 47.0 ati 2016 on in 10:25 AM Fraction] source of Blood data Hemoglobi 12.2 - g/dL Low No Feb 21 n 16.2 ati 2016 [Mass/vol on in 10:25 AM ume] in source Blood data Lymphocyt 0.7 - 4.5 K/mm3 Normal No Feb 21 es informati 2016 [#/volume on in 10:25 AM ] in source Unspecifi data ed specimen by Automated count Lymphocyt 10 - 50.0 % Normal No Feb 21 es informati 2016 [#/volume on in 10:25 AM ] in source Unspecifi data ed specimen by Automated count Erythrocy 27 - 31.2 pg Normal No Feb 21 te mean ati 2016 corpuscul on in 10:25 AM ar source hemoglobi data n [Entitic mass] Erythrocy 31.8 - g/dl Normal No Feb 21 te mean 35.4 2016 corpuscul on in 10:25 AM ar source hemoglobi data n concentra tion [Mass/vol ume] by Automated count Erythrocy 82.2 - fl Normal No Feb 21 te mean 97.8 2016 corpuscul on in 10:25 AM ar volume source [Entitic data volume] by Automated count Monocytes 0.1 - 1.0 K/mm3 Normal No Feb 21 inform2016 [#/volume on in 10:25 AM ] in source Blood by data Automated count Monocytes 1.7 - 9.3 % Normal No Feb 21 /100 informati 2016 leukocyte on in 10:25 AM s in source Blood by data Automated count Platelet 7.4 - fl Normal No Feb 21 mean 10.4 informati 2016 volume on in 10:25 AM [Entitic source volume] data in Blood by Automated count Platelets 142 - 424 K/mm3 Normal No Feb 21 informati 2016 [#/volume on in 10:25 AM ] in source Blood data Erythrocy 4.2 - 5.4 M/mm3 Low No Feb 21 malinda informati 2016 [#/volume on in 10:25 AM ] in source Amniotic data fluid Erythrocy 11.5 - % Normal No Feb 21 te 17.5 informati 2016 distribut on in 10:25 AM ion width source [Entitic data volume] by Automated count Leukocyte 4.5 - K/MM3 Normal No Feb 21 s 13.0 informati 2016 [#/volume on in 10:25 AM ] in source Blood data 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 No No No December 06 OR informa informa informa informa 2015 tion in tion in tion in tion in 9:30 AM source source source source data data data data ETHNICI WHITE, No No No No December 06 TY NON-HIS informa informa informa informa 2015 PANIC tion in tion in tion in tion in 9:30 AM source source source source data data data data KIT [id number] No No No No December 06 EXPIRAT informa informa informa informa 2015 ION tion in tion in tion in tion in 9:30 AM DATE source source source source data data data data SYMPTOM NO No No No No December 06 S informa informa informa informa 2015 tion in tion in tion in tion in 9:30 AM source source source source data data data data REASON REVISIT No No No No December 06 FOR /ANNUAL informa informa informa informa 2015 REQUEST FAMILY tion in tion in tion in tion in 9:30 AM source source source source PLANNIN data data data data G VISIT SPECIME URINE No No No No December 06 N informa informa informa informa 2015 SOURCE tion in tion in tion in tion in 9:30 AM source source source source data data data data PREGNAN NO No No No No December 06 T informa informa informa informa 2015 tion in tion in tion in tion in 9:30 AM source source source source data data data data CHART [id number] No No No No December 06 NUMBER 18 informa informa informa informa 2015 tion in tion in tion in tion in 9:30 AM source source source source data data data data Chlamyd NEGATIV No No No NEGATIV December 06 ia E informa informa informa E 2015 trachom tion in tion in tion in RESULT= 9:30 AM atis source source source WITHIN rRNA data data data NORMAL [Presen ce] in LIMITSP Unspeci OSITIVE fied specime RESULT= n by Probe & ABNORMA target LEQUIVO STARR amplifi RESULT= cation method INDETER MINATEU NSATISF ACTORY RESULT= INVALID Neisser NEGATIV No No No NEGATIV December 06 ia E informa informa informa E 2015 gonorrh tion in tion in tion in RESULT= 9:30 AM oeae source source source WITHIN rRNA data data data NORMAL [Presen ce] in LIMITSP Unspeci OSITIVE fied specime RESULT= n by Probe & ABNORMA target LEQUIVO STARR amplifi RESULT= cation method INDETER MINATEU NSATISF ACTORY RESULT= INVALID THE APTIMA COMBO 2 ASSAY IS NOT INTENDE D FOR THE EVALUAT ION OF SUSPECT EDSEXUA L ABUSE OR FOR OTHER MEDICO- LEGAL INDICAT IONS. FOR THOSE PATIENT S FORWHOM A FALSE POSITIV E RESULT MAY HAVE ADVERSE PSYCHO- SOCIAL IMPACT, THE CDCRECO MMENDS RETESTI NG.\.br \This report contain s patient informa tion that must be protect ed in accorda nce with the Health Insuran ce Lisa neri and Account ability Act. 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 No No No December 06 OR informa informa informa informa 2015 tion in tion in tion in tion in 9:30 AM source source source source data data data data ETHNICI WHITE, No No No No December 06 TY NON-HIS informa informa informa informa 2015 PANIC tion in tion in tion in tion in 9:30 AM source source source source data data data data KIT [id number] No No No No December 06 EXPIRAT informa informa informa informa 2015 ION tion in tion in tion in tion in 9:30 AM DATE source source source source data data data data SYMPTOM NO No No No No December 06 S informa informa informa informa 2015 tion in tion in tion in tion in 9:30 AM source source source source data data data data REASON REVISIT No No No No December 06 FOR /ANNUAL informa informa informa informa 2015 REQUEST FAMILY tion in tion in tion in tion in 9:30 AM source source source source PLANNIN data data data data G VISIT SPECIME URINE No No No No December 06 N informa informa informa informa 2015 SOURCE tion in tion in tion in tion in 9:30 AM source source source source data data data data PREGNAN NO No No No No December 06 T informa informa informa informa 2015 tion in tion in tion in tion in 9:30 AM source source source source data data data data CHART [id number] No No No No December 06 NUMBER 18 informa informa informa informa 2015 tion in tion in tion in tion in 9:30 AM source source source source data data data data Chlamyd Pending No No No No December 06 ia informa informa informa informa 2015 trachom tion in tion in tion in tion in 9:30 AM atis source source source source rRNA data data data data [Presen ce] in Unspeci fied specime n by Probe & target amplifi cation method Neisser Pending No No No \.br\December 06 ia informa informa informa is 2015 gonorrh tion in tion in tion in report 9:30 AM oeae source source source contain rRNA data data data s [Presen patient ce] in Unspeci informa fied tion specime that n by must be Probe & target protect ed in amplifi accorda cation nce method with the Health Insuran ce Lisa lity and Account ability Act. 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 PT/ T No No No No Mar 12 OR LALO informa informa informa informa 2014 RN tion in tion in tion in tion in 11:45 source source source source AM data data data data ETHNICI WHITE, No No No No Mar 12 TY NON-HIS informa informa informa informa 2014 PANIC tion in tion in tion in tion in 11:45 source source source source AM data data data data KIT 05-07-14 No No No No Mar 12 EXPIRAT informa informa informa informa 2014 ION tion in tion in tion in tion in 11:45 DATE source source source source AM data data data data SYMPTOM NO No No No No Mar 12 S informa informa informa informa 2014 tion in tion in tion in tion in 11:45 source source source source AM data data data data REASON INITIAL No No No No Mar 12 FOR FAMILY informa informa informa informa 2014 REQUEST tion in tion in tion in tion in 11:45 PLANNIN source source source source AM G VISIT data data data data SPECIME URINE No No No No Mar 12 N informa informa informa informa 2014 SOURCE tion in tion in tion in tion in 11:45 source source source source AM data data data data PREGNAN NO No No No No Mar 12 T informa informa informa informa 2014 tion in tion in tion in tion in 11:45 source source source source AM data data data data CHART NA No No No No Mar 12 NUMBER informa informa informa informa 2014 tion in tion in tion in tion in 11:45 source source source source AM data data data data Chlamyd NEGATIV No No No NEGATIV Mar 12 ia E informa informa informa E 2014 trachom tion in tion in tion in RESULT= 11:45 atis source source source WITHIN AM rRNA data data data NORMAL [Presen ce] in LIMITSP Unspeci OSITIVE fied specime RESULT= n by Probe & ABNORMA target LEQUIVO STARR amplifi RESULT= cation method INDETER MINATEU NSATISF ACTORY RESULT= INVALID Neisser NEGATIV No No No NEGATIV Mar 12 ia E informa informa informa E 2014 gonorrh tion in tion in tion in RESULT= 11:45 oeae source source source WITHIN AM rRNA data data data NORMAL [Presen ce] in LIMITSP Unspeci OSITIVE fied specime RESULT= n by Probe & ABNORMA target LEQUIVO STARR amplifi RESULT= cation method INDETER MINATEU NSATISF ACTORY RESULT= INVALID THE APTIMA COMBO 2 ASSAY IS NOT INTENDE D FOR THE EVALUAT ION OF SUSPECT EDSEXUA L ABUSE OR FOR OTHER MEDICO- LEGAL INDICAT IONS. FOR THOSE PATIENT S FORWHOM A FALSE POSITIV E RESULT MAY HAVE ADVERSE PSYCHO- SOCIAL IMPACT, [facility] MMENDS RETESTI NG.\.br \This report contain s patient informa tion that must be protect ed in accorda nce with the Health Insuran ce Portabi lity and Account ability Act. 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 PT/ T No No No No Mar 12 OR LALO informa informa informa informa 2013 RN tion in tion in tion in tion in 11:45 source source source source AM data data data data ETHNICI WHITE, No No No No Mar 12 TY NON-HIS informa informa informa informa 2014 PANIC tion in tion in tion in tion in 11:45 source source source source AM data data data data KIT 9-30-14 No No No No Mar 12 EXPIRAT informa informa informa informa 2014 ION tion in tion in tion in tion in 11:45 DATE source source source source AM data data data data SYMPTOM NO No No No No Mar 12 S informa informa informa informa 2014 tion in tion in tion in tion in 11:45 source source source source AM data data data data REASON INITIAL No No No No Mar 12 FOR FAMILY informa informa informa informa 2014 REQUEST tion in tion in tion in tion in 11:45 PLANNIN source source source source AM G VISIT data data data data SPECIME URINE No No No No Mar 12 N informa informa informa informa 2014 SOURCE tion in tion in tion in tion in 11:45 source source source source AM data data data data PREGNAN NO No No No No Mar 12 T informa informa informa informa 2014 tion in tion in tion in tion in 11:45 source source source source AM data data data data CHART NA No No No No Mar 12 NUMBER informa informa informa informa 2014 tion in tion in tion in tion in 11:45 source source source source AM data data data data Chlamyd Pending No No No No Mar 12 ia informa informa informa informa 2014 trachom tion in tion in tion in tion in 11:45 atis source source source source AM rRNA data data data data [Presen ce] in Unspeci fied specime n by Probe & target amplifi cation method Neisser Pending No No No \.br\Mar 12 ia informa informa informa is 2014 gonorrh tion in tion in tion in report 11:45 oeae source source source contain AM rRNA data data data s [Presen patient ce] in Unspeci informa fied tion specime that n by must be Probe & target protect ed in amplifi accorda cation nce method with the Health Insuran ce Portabi lity and Account ability Act.
--- OUTSIDE RECORDS SUMMARY | 2017-05-19 06:24 | External Medical Summary Rpt ---
[...] Date tion ce etation Range COMMENTS TO ENERGY AND SUSTAINABILITY MANAGER: PREOP ORDER Urea 7 - 18 mg/dL [...] Date tion ce etation Range COMMENTS TO ENERGY AND SUSTAINABILITY MANAGER: PREOP ORDER Basophils 0 - 0.2 K/MM3 [...] rRNA data data [Presen Bob ce] in [id number] Unspeci Alzada fied [place], specime Bob n [place], [place] Probe & target [id number] amplifi Directo cation r: method Caitlin Bailey MD, Phone: [phone] INR in Blood by Coagulation assay Observa [...] ce] in [address], [facility], [facility] [id number]Lab Directo r: Reginald Guillermo ti PhD, Phone: [phone] Reagin Ab [Titer] in Serum by RPR [...] Notes Date tion ce etation Range COLLECT FREIGHT ASSOCIATE No No No No December 06 OR [...] source source data data data data KIT [id number] No No No No December 06 EXPIRAT [...] source source data data data data CHART [id number] No No No No December 06 NUMBER [...] Notes Date tion ce etation Range COLLECT FREIGHT ASSOCIATE No No No No December 06 OR [...] source source data data data data KIT [id number] No No No No December 06 EXPIRAT [...] source source data data data data CHART [id number] No No No No December 06 NUMBER [...] MAY HAVE ADVERSE PSYCHO- SOCIAL IMPACT, [facility] MMENDS RETESTI NG.\.br \This report contain s [...]
== END 2017-05-10 07:35 | disposition home or self-care (01) ==
LOC: ER 05:13
PROVIDERS: Emergency Medicine
DX: A08.4 Viral intestinal infection, unspecified (principal)

== ENCOUNTER 2017-07-03 17:43 | Emergency (ER) | payer MEDICAID ==
[~2017-07-03] VITALS: Ht 160 cm; Wt 68.0 kg
[~2017-07-03 17:43] MED LIST changes: +AUGMENTIN1 TA1 PO
--- OUTSIDE RECORDS SUMMARY | 2017-07-03 17:50 | External Medical Summary Rpt | CCD ---
Author Author , MATT Organization MATT Address Unknown Phone [email or web address] Immunization Name Date Rout CVX Reac Dose Comm Prov Is Faci e tion ent ider Refu lity Give sed n Tdap 08-1 115 999 Hist H149 No H149 , 0-20 oric Adso 09 al rbed Info rmat ion - Sour ce Unsp ecif ied
--- OUTSIDE RECORDS SUMMARY | 2017-07-03 17:50 | External Medical Summary Rpt | CCD ---
Demographics Preferred Language Bengali Marital Status Unknown Holiness Affiliation Unknown Race Unknown Ethnic Group Unknown Author Author , MATT GUTIERREZ Address Unknown Phone [email or web address] Care Team Providers Care Policewoman Name Role Phone [facility] Unavailable Unavailable [place], [facility] # Unavailable Unavailable [id number], [facility] [id number] Purpose Continuity of Care Document - 10-10-2009 through 2016 Medications Na ND Rx Da Fi Fi Am Da Di Ph RX Ph St me C No te ll ll ou ys ag ar # ys at rm s nt no ma ic us Or Da si cy ia de te s n re d PE 00 08 08 0 60 1 [...] MA D CY # 10 05 91 MT 68 10 10 0 12 4 WA [...] 0 28 14 WA 70 EN Ac MT 74 -0 -0 .0 L- 81 GL [...]
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
--- OUTSIDE RECORDS SUMMARY | 2017-07-03 17:50 | External Medical Summary Rpt | CCD ---
Author Author , MATT Organization MATT Address Unknown Phone [email or web address] Care Team Providers Care Wood Heel Flap Inserter Name Role Phone Johnny Baker MD, Unavailable Unavailable Johnny Baker MD [facility] Unavailable Unavailable [place], [facility] [place] [facility] # Unavailable Unavailable [id number], [facility] # [id number] Purpose Continuity of Care Document - 10-10-2009 through 2016 Problems Code Diagnosis DOS Provider Status 723.1 723.1 11-21-2012 [facility] E87.6 HYPOKALEMIA K50.00 CROHN'S DISEASE OF SMALL [...] MA D CY # 10 05 91 NE 68 10 10 0 12 4 WA [...] 0 28 14 WA 70 EN Ac NE 74 -0 -0 .0 L- 81 GL [...] CHLAMYDIA AND GONORRHEA TESTING (12-06-2014 09:30) COLLECT DIRECTOR STRATEGIC PLANNING complet OR 015 ed 09:30 ETHNICI WHITE, complet TY 015 NON-HIS ed 09:30 PANIC KIT [id number] complet EXPIRAT 015 ed ION 09:30 DATE SYMPTOM NO complet S 015 ed 09:30 REASON REVISIT complet FOR 015 /ANNUAL ed REQUEST 09:30 FAMILY PLANNIN G VISIT SPECIME URINE complet N 015 ed SOURCE 09:30 PREGNAN NO complet T 015 ed 09:30 CHART [id number] complet NUMBER 015 18 ed 09:30 Chlamyd [...] Baker MD (ER) 3 16:28 3 17:50 [facility]
--- OUTSIDE RECORDS SUMMARY | 2017-07-03 17:50 | External Medical Summary Rpt | CCD ---
Author Author , MATT Organization MATT Address Unknown Phone [email or web address] Immunization Name Date Rout CVX Reac Dose Comm Prov Is Faci e tion ent ider Refu lity Give sed n Tdap 08-1 115 999 Hist H149 No H149 , 0-20 oric Adso 09 al rbed Info rmat ion - Sour ce Unsp ecif ied
--- OUTSIDE RECORDS SUMMARY | 2017-07-03 17:50 | External Medical Summary Rpt | CCD ---
Demographics Preferred Language Tamazight Marital Status Unknown Anglican Affiliation Unknown Race Unknown Ethnic Group Unknown Author Author , MATT GUTIERREZ Address Unknown Phone [email or web address] Care Team Providers Care Communication Coordinator Name Role Phone [facility] Unavailable Unavailable [place], [facility] # Unavailable Unavailable [id number], [facility] # [id number] Purpose Continuity of Care Document - 10-10-2009 [...] MA D CY # 10 05 91 IN 68 10 10 0 12 4 WA [...] 0 28 14 WA 70 EN Ac IN 74 -0 -0 .0 L- 81 GL [...]
--- OUTSIDE RECORDS SUMMARY | 2017-07-03 17:52 | External Medical Summary Rpt ---
[...] Date tion ce etation Range COMMENTS TO MANAGER PRINTING: PREOP ORDER Urea 7 - 18 mg/dL [...] Date tion ce etation Range COMMENTS TO MANAGER PRINTING: PREOP ORDER Basophils 0 - 0.2 K/MM3 [...] rRNA data data [Presen Bob ce] in [id number] Unspeci [place] f[place], specime [place], [place] Probe & target [id number] 38Lab amplifi Directo cation r: method Caitlin Bailey MD, Phone: [phone] INR in Blood by Coagulation assay Observa [...] ce] in [address], [facility], [facility] [id number] 69Lab Directo r: Reginald Guillermo ti PhD, Phone: [phone] Reagin Ab [Titer] in Serum by RPR [...] Notes Date tion ce etation Range 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
--- OUTSIDE RECORDS SUMMARY | 2017-07-03 17:52 | External Medical Summary Rpt ---
[...] Date tion ce etation Range COMMENTS TO ACCOUNT SPECIALIST: PREOP ORDER Urea 7 - 18 mg/dL [...] Date tion ce etation Range COMMENTS TO ACCOUNT SPECIALIST: PREOP ORDER Basophils 0 - 0.2 K/MM3 [...] rRNA data data [Presen Bob ce] in [id number] Unspeci [place] fied [place], specime [place], [place] Probe & target [id number] 38Lab amplifi Directo cation r: method Caitlin Bailey MD, Phone: [phone] INR in Blood by Coagulation assay Observa [...] ce] in [address], [facility], [facility] [id number] 69Lab Directo r: Reginald Guillermo ti PhD, Phone: [phone] Reagin Ab [Titer] in Serum by RPR [...] Notes Date tion ce etation Range COLLECT CONCESSION ATTENDANT No No No No December 06 OR [...] source source data data data data KIT [id number] No No No No December 06 EXPIRAT [...] source source data data data data CHART [id number] No No No No December 06 NUMBER [...] Notes Date tion ce etation Range COLLECT CONCESSION ATTENDANT No No No No December 06 OR [...] source source data data data data KIT [id number] No No No No December 06 EXPIRAT [...] source source data data data data CHART [id number] No No No No December 06 NUMBER [...] MAY HAVE ADVERSE PSYCHO- SOCIAL IMPACT, [facility] NG.\.br \This report contain s [...]
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
[2017-07-03 19:09] VITALS: BP 144/78
== END 2017-07-03 19:09 | disposition home or self-care (01) ==
LOC: UTC 17:43
DX: T75.4XXA Electrocution, initial encounter (principal); W86.1XXA Exposure to industrial wiring, appliances and electrical machinery, initial encounter; Y92.019 Unspecified place in single-family (private) house as the place of occurrence of the external cause